=== PATIENT | female | born 1950 | race Caucasian/White ===

== ENCOUNTER 2018-01-22 09:50 | Emergency (ER) | payer MEDICARE, SELFPAY ==
[2018-01-22 09:50] VITALS: BP 125/49; PULSE 87; RESP 18; TEMP 36.6; O2SAT 93; BMI 21.9
--- NOTE | 2018-01-22 10:07 | RAD_ITS ---
STUDY: X-RAY CHEST REASON FOR EXAM: Female, 67 years old. Cough. TECHNIQUE: PA and lateral views of the chest. COMPARISON: None. FINDINGS: Right lower lung increased densities. There is no demonstrated pleural abnormality. Normal size heart. Normal mediastinum and xavier. Normal visualized pulmonary arteries. Normal visualized aortic arch and descending thoracic aorta. There is a dextroscoliosis of the thoracic spine. Normal visualized ribs, clavicles, and shoulders. There is no demonstrated abnormality of the visualized soft tissue structures of the upper abdomen. RAD/Chest PA and Lateral IMPRESSION: Right lower lung infiltrate. Electronically Signed: Gareth Patel MD at 10:29 EDT , Service support ,
--- NOTE | 2018-01-22 10:09 | ED.VISSUMM ---
- ER Visit Summary Date of Service: 01/22/18 Chief Complaint: Cough History of Present Illness: The patient is a 67 F who states that she flew to [place] about 1 week ago. She did so because they are 8 month old granddaughter has pneumonia was in the hospital. She was caring for the child after discharge. Patient states that on Thursday she began to have a slight sore throat and drainage. Thursday and she developed nasal congestion ear pressure cough, cough with deep inspiration and a headache. She states she has a poor appetite. Subjective fever this morning but she took antipyretics. She has a history of M?ni?re's disease and overactive bladder. She is patient to start spine clinic. She is a non-smoker. Physical Examination: Afebrile vital signs are stable Gen: Well-nourished well-developed Head: Normocephalic atraumatic Eyes: Perrl EOMI ENT: The left tympanic membrane is retracted. There is turbinate edema and clear rhinorrhea. No significant sinus tenderness. Evidence of postnasal drip. Neck: Supple no lymphadenopathy no JVD nontender CVS: Regular rate rhythm no murmurs normal S1-S2 Respiratory: No distress patient has right lower rhonchi that improves with coughing. She is unable to take a deep breath due to coughing. Abdomen: Soft nontender nondistended normal bowel sounds no masses Back: Nontender Extremity: Nontender no edema Skin: Normal color no rash Neuro: alert orientated ?3 CN II-XII intact normal strength sensation reflexes gait cerebellar Psych: Normal affect normal mood Test Results: Chest x-ray obtained. This was consistent with a right lower lobe infiltrate. Emergency Department Course and Treatment: Equal exam and chest x-ray are consistent with right lower lobe infiltrate. Patient will be started on Levaquin. We will do inhaler treatment/education. Patient was given return instructions. She was instructed to rest, hydrate, and provide fever control. She was encouraged to return if any concerns. Impression: 1. Pneumonia This note was generated with [employer] dictation software. It may contain incorrect words, spelling, and punctuation that were not noted in review of the chart prior to signing ED Disposition - Plan for ED Patient: Disposition: Home or Assisted Living Chief Complaint: General Illness Instructions: ED Pneumonia Adult Prescriptions: Levofloxacin [Levaquin] 750 mg PO DAILY #5 tab Referrals: Joyce Abdalla [NON-STAFF] - (as scheduled ) Additional Instructions: Inhaler uses 2 puffs every 3-4 hours and as needed for shortness of breath/cough. Please hydrate and rest Fever control with Tylenol. Return if any concerns or are worsening.
--- NOTE | 2018-01-22 10:12 | ED.DCSUM_ITS ---
- ER Visit Summary Date of Service: 01/22/18 Chief Complaint: Cough History of Present Illness: The patient is a 67 F who states that she flew to [place] about 1 week ago. She did so because they are 8 month old granddaughter has pneumonia was in the hospital. She was caring for the child after discharge. Patient states that on Thursday she began to have a slight sore throat and drainage. Thursday and she developed nasal congestion ear pressure cough, cough with deep inspiration and a headache. She states she has a poor appetite. Subjective fever this morning but she took antipyretics. She has a history of M?ni?re's disease and overactive bladder. She is patient to start spine clinic. She is a non-smoker. Physical Examination: Afebrile vital signs are stable Gen: Well-nourished well-developed Head: Normocephalic atraumatic Eyes: Perrl EOMI ENT: The left tympanic membrane is retracted. There is turbinate edema and clear rhinorrhea. No significant sinus tenderness. Evidence of postnasal drip. Neck: Supple no lymphadenopathy no JVD nontender CVS: Regular rate rhythm no murmurs normal S1-S2 Respiratory: No distress patient has right lower rhonchi that improves with coughing. She is unable to take a deep breath due to coughing. Abdomen: Soft nontender nondistended normal bowel sounds no masses Back: Nontender Extremity: Nontender no edema Skin: Normal color no rash Neuro: alert orientated ?3 CN II-XII intact normal strength sensation reflexes gait cerebellar Psych: Normal affect normal mood Test Results: Chest x-ray obtained. This was consistent with a right lower lobe infiltrate. Emergency Department Course and Treatment: Equal exam and chest x-ray are consistent with right lower lobe infiltrate. Patient will be started on Levaquin. We will do inhaler treatment/education. Patient was given return instructions. She was instructed to rest, hydrate, and provide fever control. She was encouraged to return if any concerns. Impression: 1. Pneumonia This note was generated with [employer] dictation software. It may contain incorrect words, spelling, and punctuation that were not noted in review of the chart prior to signing ED Disposition - Plan for ED Patient: Disposition: Home or Assisted Living Chief Complaint: General Illness Instructions: ED Pneumonia Adult Prescriptions: Levofloxacin [Levaquin] 750 mg PO DAILY #5 tab Referrals: Joyce Abdalla [NON-STAFF] - (as scheduled ) Additional Instructions: Inhaler uses 2 puffs every 3-4 hours and as needed for shortness of breath/ cough. Please hydrate and rest Fever control with Tylenol. Return if any concerns or are worsening.
[2018-01-22 11:06] VITALS: BP 106/55; PULSE 74; RESP 18; O2SAT 93
== END 2018-01-22 11:06 | disposition home or self-care (01) ==
PROVIDERS: Emergency Provider Emergency Medicine
DX: J18.9 Pneumonia, unspecified organism (principal); H81.09 Meniere's disease, unspecified ear
CPT/HCPCS: 71046; 94640; 99282

== ENCOUNTER → 2018-02-03 14:00 | Outpatient (CLI) | payer MEDICARE, SELFPAY ==
--- NOTE | 2018-02-03 14:04 | RAD_ITS ---
STUDY: X-RAY CHEST REASON FOR EXAM: Female, 67 years old. Pneumonia TECHNIQUE: Frontal and lateral views of the chest COMPARISON: 01/22/2018 FINDINGS: Again noted is opacity in the right lower lobe which is decreased when compared with the prior exam. The lungs are otherwise clear. There are no pleural effusions. There is no pneumothorax. The heart is normal in size. The visualized osseous structures are within normal limits. RAD/Chest PA and Lateral IMPRESSION: Decreased opacity when compared with the prior exam. Continued follow-up to resolution is recommended. Electronically Signed: Maykel James, at 23:19 EDT Tel , Service support ,
--- NOTE | 2018-02-03 14:14 | EKG12_ITS ---
Test Reason : IRRG HB Blood Pressure : / mmHG Vent. Rate : 060 BPM Atrial Rate : 060 BPM P-R Int : 144 ms QRS Dur : 082 ms QT Int : 438 ms P-R-T Axes : 064 025 004 degrees QTc Int : 438 ms Normal sinus rhythm Possible Left atrial enlargement Borderline ECG Confirmed by SHAUNA KAHN, JENNIFER ([id number]), photography editor LIZ SORENSEN ([id number]) on 02/05/2018 2:07:35 PM Referred By: [facility] Confirmed By:JENNIFER VILLATORO MD
== END ==
DX: J18.9 Pneumonia, unspecified organism (principal); I49.9 Cardiac arrhythmia, unspecified
CPT/HCPCS: 71046; 93005

== ENCOUNTER → 2018-04-26 09:41 | Outpatient (CLI) | payer MEDICARE, SELFPAY ==
--- NOTE | 2018-04-26 09:46 | ECHOD_ITS ---
Reason For Study: ABN EKG Procedure This was a 2D Doppler, Color Flow transthoracic echocardiogram. The exam was of fair technical quality due to diminished acoustic windows. Exam performed in department. Left Ventricle Normal LV size. Apical false tendon noted. Left ventricular systolic function is normal. The estimated ejection fraction is 65 %. Diastolic function: considered indeterminate. No regional wall motion abnormalities noted. Right Ventricle Normal RV size. Normal systolic function. Atria Normal left atrium. Normal right atrium. Aneurysmal atrial septum. No doppler evidence for ASD. Mitral Valve There is no mitral annular calcification. Normal mitral valve. Mild (1+) mitral valve insufficiency. Tricuspid Valve Normal tricuspid valve. Moderate (2+) tricuspid valve insufficiency. Right ventricular systolic pressure estimated to be 24 mmHg. Aortic Valve Trisinus/trileaflet aortic valve. Mild diffuse aortic valve thickening. Trivial aortic valve insufficiency. Pulmonic Valve The pulmonic valve is not well visualized. Mild (1+) pulmonic valve insufficiency. Great Vessels Normal sized aortic root. Pericardium/Pleural No pericardial effusion. MMode/2D Measurements & Calculations LVIDd: 4.1 cm IVSd: 0.95 cm Ao root diam: 3.0 cm LVIDs: 2.4 cm LVPWd: 0.96 cm LA dimension: 3.3 cm RVDd: 3.4 cm FS: 42.2 % LAV(MOD-bp): 44.1 ml LA A4 area: 16.6 cm2 RA A4 area: 13.5 cm2 LAV(MOD-bp) Indexed: 27.4 ml/m2 LAV(MOD-sp2): 42.4 ml LAV(MOD-sp4): 43.9 ml Time Measurements MV dec time: 0.25 sec Doppler Measurements & Calculations MV E max jigar: 52.4 cm/sec Lat Peak E' Jigar: 6.3 cm/sec Med Peak E' Jigar: 7.7 cm/sec MV A max jigar: 60.2 cm/sec E/E' lat: 8.3 E/E' med: 6.8 MV E/A: 0.87 Ao V2 max: 120.7 cm/sec LV V1 max: 108.3 cm/sec PA V2 max: 79.0 cm/sec Ao max P.8 mmHg LV V1 max P.7 mmHg TR max jigar: 230.7 cm/sec TR max P.3 mmHg Interpretation Summary Left ventricular systolic function is normal. The estimated ejection fraction is 65 %. Apical false tendon noted. Aneurysmal atrial septum. Mild (1+) mitral valve insufficiency. Moderate (2+) tricuspid valve insufficiency. Mild diffuse aortic valve thickening. Trivial aortic valve insufficiency. Mild (1+) pulmonic valve insufficiency. Right ventricular systolic pressure estimated to be 24 mmHg. Diastolic function: considered indeterminate. Ordering Physician: DILIP NULL Referring Physician: DILIP NULL Performed By: Luz Cadet, RDCS, RVT
== END ==
DX: R94.31 Abnormal electrocardiogram [ECG] [EKG] (principal)
CPT/HCPCS: 93306

== ENCOUNTER → 2018-09-24 15:46 | Outpatient (CLI) | payer MEDICARE, SELFPAY ==
--- NOTE | 2018-09-24 15:50 | BI_ITS ---
MAMMOGRAPHY - BILATERAL SCREENING REASON FOR EXAM: Female, 68 years old. Routine annual screening examination. PERTINENT HISTORY: Aunt with breast cancer. TECHNIQUE: Digital bilateral breast junito (3D mammographic acquisition) in the CC and MLO projections. 2-D mediolateral oblique (MLO) and craniocaudad (CC) views of both breasts were obtained. CAD: Full Field Digital Mammography with Computer Added Detection was performed. COMPARISON: Comparison is made with prior abdomen examination dated July 21, 2016. FINDINGS: Breast Composition: There are scattered areas of fibroglandular density. There are no dominant masses or suspicious calcifications. No other significant abnormalities are identified. There has been no significant change since the prior study. BI/SCREENING MAMM (CAD), BILAT IMPRESSION: Stable bilateral screening mammogram. Yearly follow-up mammogram recommended. (A) ASSESSMENT CATEGORY: BIRADS Category 1: Negative. A letter regarding these results will be sent to the patient by the facility within 30 days. Approximately 10% of breast cancers are not detected by mammography. A normal mammogram should not delay biopsy of a clinically suspicious abnormality. [id number] Electronically Signed: Elieser Gonzalez MD at 15:24 EST Tel [phone], Service support ,
== END ==
DX: Z12.31 Encounter for screening mammogram for malignant neoplasm of breast (principal)
CPT/HCPCS: 77063; 77067

== ENCOUNTER 2021-01-08 13:00 | Outpatient (RCR) | payer MEDICARE, SELFPAY ==
--- NOTE | 2021-01-01 12:19 | HP.PTEVAL_ITS ---
Patient's Visit Information MARK WINSLOW is a 70 year old F referred to Physical Therapy by Dr. Lamont Tucker MD with a diagnosis of Vertigo. Date of Evaluation: 01/01/21 Physical Therapist: Rene Morgan, ROSANNET, OCS, CSCS - Visit Plan Frequency: 1x/Week Duration: 4-6 Weeks Plan: weekly x 4-6 for progression of home vestibular ex. start adaptation and habituation as needed. MSQ progression of adaptation next session as helpful. - Subjective Feelings of dizzyness and lightheadedness. Sometimes spinning but normally big lightheadedness. It has been happening intermittently for several years. Diagnosed with Mieniere's disease. Then told she did not have that. Sent to [facility]. Has has put her on some meds, gave MRI adn not sure what is causing it and sent for PT. Morning is the worst time after breakfast. Then late a t night before bed. Dizzyness prior to meds was 7/10 for 30 minutes or so. Sometimes happens while she is walking. Now more like 4/10. Sleep is not usually interrupted. Sometimes feels it as she goes into bed. Retired. Spends day housework and baking and sewing, harder time seeing when sewing adn needs to take it easy if dizzy but not bad. Basic ADLs are I. No falls recently. BAKER sometimes from dizzyness. Last time felt good was a couple years ago. - Objective Baance is good. reflexes 1/3 patella and achilles. ARM LE WNL and strength 4/5. cervical aROM WFL adn no pain. Sensation LE WNL to gross light touch. - B hallpike cesar. - roll test. No nystagmus but slight dizzy for 10 seconds wilth all movements. head nods worse than head shake to 5/10 from baseline 3/10 . Oculomotor: no nystagmus with gaze or head shake. - ocular tilt. - skew eye deviation. Pursuit and saccades are OK but symptomatic more so with saccades after 30 sec to 6/10 for 20 seconds. convergence OK. VOR symptmatic 4/10 after 30 seconds for 10 seconds. MSQ positions: 180 turn no. head shake slight. head nods slight. up from knee not tested. Walk and trasnfers are good. - Balance Scores Functional Gait Assessment Score: 30 % Disability: 0 CATSIB Score (Max score 120 seconds): 120 - Goals Goal 1:: Pt feel dizzyness is 75% better adn 1-2/10 at worst. Goal Time Frame: 4-6 Weeks Goal 2:: <8 on DHI Goal Time Frame: 4-6 Weeks Goal 3:: Pt I in management of condition Goal Time Frame: 4-6 Weeks - Rehabilitation Potential Physical Therapy Diagnosis: vertigo possible vestibular dysfunction Rehabilitation Potential: Questionable - Anticipated Interventions Patient/Client Instruction: Educate patient on: Condition, Plan of Care For the Purpose of:: To improve ability of physical actions for home /community/work/leisure Comment: adaptation adn habituiation vestibualr ex as helpful For the Purpose of:: To improve ability of physical actions for home/community/work/leisure Thank you for the opportunity to evaluate your patient. For Medicare and Medicare HMO plans, please review the plan of care and approve it. It will need to be FAXED BACK to us at [phone] for Medicare purposes. For Medicare only, by signing this I certify the plan of care. Please let me know if there are questions or concerns regarding this plan of care. Physician Signature: Date:
--- NOTE | 2021-02-28 17:10 | HP.PT.NRP ---
MARK WINSLOW was seen in my office for initial evaluation on 01/01/21. The following Plan of Care was established for this patient: Initial Frequency: 1x/Week Initial Duration: 4-6 Weeks Patient/Client Instruction: Educate patient on: Condition, Plan of Care For the Purpose of:: To improve ability of physical actions for home/community/work/leisure For the Purpose of:: To improve ability of physical actions for home/community/work/leisure This patient was last seen in our office 01/08/21. Pertinent comments regarding their Physical therapy will appear below: Pt seen two visits of POC for HEP progression. She did not continue with her POC after last scheduled visit. at this point, it has been over 6 weeks and I will discontinue due to nonattendance. At this point I will be discontinuing this patient from physical therapy. I would be happy to see this patient again in the future if found appropriate by the physician. Thank you! Rene Morgan, DPT, OCS, CSCS
== END 2021-01-08 19:00 | disposition home or self-care (01) ==
LOC: PT 13:00
PROVIDERS: PCP Family Medicine; Referring Provider Psychiatry & Neurology Sleep Medicine; Visit Provider Psychiatry & Neurology Sleep Medicine
DX: G44.89 Other headache syndrome (principal); R42 Dizziness and giddiness
CPT/HCPCS: 97110; 97162; 97530

== ENCOUNTER → 2022-01-25 | Outpatient (CLI) | payer MEDICARE, SELFPAY ==
--- NOTE | 2022-01-25 10:56 | US_ITS ---
STUDY: RENAL ULTRASOUND - COMPLETE REASON FOR EXAM: Female, 71 years old. UTI TECHNIQUE: Ultrasound evaluation of the kidneys was performed with real-time and static moore-scale imaging. COMPARISON: None. FINDINGS: RIGHT KIDNEY: Normal location of the right kidney, which is normal in size. The right kidney measures 10.5 cm. There is a normal cortex of the right kidney. The renal cortex measures 1.0 cm. There is no right renal mass or cyst. There are no right renal calculi. There is no right hydronephrosis. DISTAL RIGHT URETER: There is non-visualization of the distal right ureter. There is no demonstrated right ureterovesical junction calculus. There is a visualized right ureteral jet. LEFT KIDNEY: Normal location of the left kidney, which is normal in size. The left kidney measures 10.5 cm. There is a normal cortex of the left kidney. The renal cortex measures 1.0 cm. There is no left renal mass or cyst. There are no left renal calculi. There is no left hydronephrosis. DISTAL LEFT URETER: There is non-visualization of the distal left ureter. There is no demonstrated left ureterovesical junction calculus. There is a visualized left ureteral jet. BLADDER: The distended urinary bladder has a volume of 244 ml. The empty urinary bladder has a volume of 5 ml. There is a normal wall thickness of the distended urinary bladder. There is no demonstrated mass within the urinary bladder. There are no demonstrated bladder calculi. US/Kidney and Bladder IMPRESSION: Normal ultrasound of the kidneys and urinary bladder. Electronically Signed: Jose Bell MD at 12:35 EDT ,
== END | disposition home or self-care (01) ==
PROVIDERS: PCP Family Medicine; Referring Provider Urology; Visit Provider Urology
DX: N39.0 Urinary tract infection, site not specified (principal)
CPT/HCPCS: 76770

== ENCOUNTER → 2023-02-09 | Outpatient (CLI) | payer MEDICARE, SELFPAY ==
[2023-02-09 15:41] LABS: Absolute Lymphocyte Count 2.29 X10^3/uL (0.83-4.51); Absolute Neutrophil Count 5.1 X10^3/uL (2.0-7.7); Basophil# 0.06 X10^3/uL; Basophil% 0.8 % (0-1); Eosinophil# 0.11 X10^3/uL; Eosinophils% 1.4 % (0-5); Hematocrit 41.4 % (37-47); Lymphocyte # 2.29 X10^3/ul (0.83-4.51); Lymphocyte % 28.7 % (19-41); Mean Corp Hgb Conc 31.4 g/dL (32-36); Mean Corpuscular Volume 85.9 fL (81-99); Mean Platelet Vol. 11.4 fl (6.2-12.0); Monocyte# 0.45 X10^3/uL; Monocyte% 5.6 % (0-10); NRBC Flagged by Analyzer 0 % (0-5); Neutrophil # 5.05 X10^3/uL (2.7-7.7); Neutrophil % 63.1 % (47-70); Platelet Count 287 K/mm3 (150-450); RBC Distribution Width CV 14.3 % (11.6-14.6); RBC Distribution Width SD 45.1 fl (35.1-43.9); Red Blood Count 4.82 M/mm3 (4.2-5.4)
[2023-02-09 16:19] LABS: Vitamin D,25 Hydroxy 47.8 ng/mL
[2023-02-09 16:24] LABS: ALB/GLOB Ratio 1.1 RATIO (0.9-2.4); AST(SGOT) 18 U/L (15-37); Alanine Aminotransfer ALT/SGPT 17 U/L (13-56); Albumin, Serum 3.9 g/dL (3.2-5.0); Alkaline Phosphatase 77 U/L (45-117); Anion Gap 7 (5-15); BUN 15 mg/dL (7-18); BUN/Creat Ratio 23.1 RATIO (10-20); Calcium,Total 9.3 mg/dL (8.5-10.1); Chloride 104 mmol/L (98-107); Creatinine, Serum 0.65 mg/dL (0.55-1.02); EST Glomerular Filtration Rate 96 mL/min (>60); Est Glom Filt Rate - Afr Amer 116 mL/min (>60); Globulin 3.4 g/dL (2.2-4.2); Glucose 97 mg/dL (74-106); Potassium 4.1 mmol/L (3.5-5.1); Protein, Total 7.3 g/dL (6.4-8.2); Rheumatoid Factor < 10.0 IU/mL (<15); Sodium Level 140 mmol/L (136-145)
[2023-02-11 12:09] LABS: CCP IgG Antibodies 6 units (0-19)
[2023-02-11 13:08] LABS: ANTINUCLEAR ANTIBODIES DIRECT Negative (Negative)
== END | disposition home or self-care (01) ==
PROVIDERS: PCP Internal Medicine; Referring Provider Internal Medicine; Visit Provider Internal Medicine
DX: M85.80 Other specified disorders of bone density and structure, unspecified site (principal); M25.50 Pain in unspecified joint
CPT/HCPCS: 36415; 80053; 82306; 85025; 86038; 86200; 86225; 86235; 86431

== ENCOUNTER → 2023-03-05 | Outpatient (CLI) | payer MEDICARE, SELFPAY ==
--- NOTE | 2023-03-05 11:02 | BD_ITS ---
STUDY: DUAL ENERGY X-RAY ABSORPTIOMETRY / DXA REASON FOR EXAM: Female, 72 years old. Osteopenia TECHNIQUE: Bone Mineral Density (BMD) measurements of lumbar spine and bilateral hips were obtained. COMPARISON: None. FINDINGS: Lumbar Spine (L1-L4): g/cm2 (1.066) / T-score (0.1) / Z-score (2.3) Findings are suggestive of normal bone density with a low fracture risk. Left Femur Total: g/cm2 (0.821) / T-score (-1.0) / Z-score (0.6) Left Femoral Neck: g/cm2 (0.688) / T-score (-1.5) / Z-score (0.4) Right Femur Total: g/cm2 (0.816) / T-score (-1.0) / Z-score (0.6) Right Femoral Neck: g/cm2 (0.670) / T-score (-1.6) / Z-score (0.3) BD/Dexa Bone Density Study IMPRESSION: The patient is considered osteopenic as outlined below according to World Yehuda Organization (WHO) criteria with a moderate fracture risk. Reference Information: The T-score is the number of standard deviations above or below the standard which is normal for young adults at their peak bone mineral density. The World Health Organization (WHO) interprets the T-scores as follows: Above -1 Normal bone density Between -1 and -2.5 Osteopenia Equal to / or below -2.5 Osteoporosis As a practical clinical guideline, osteopenia may be graded as follows: Mild -1 through -1.5 Moderate -1.6 through -2.0 Severe -2.1 through -2.4 The Z-score is the number of standard deviations above or below age-matched controls. A Z-score of less than -1.5 would be considered abnormal. References: 1. NIH Osteoporosis and Related Bone Diseases www osteo.org 2. International Society for Clinical Densitometry www iscd.org 3. National Osteoporosis Foundation www nof.org Electronically Signed: Elieser Gonzalez MD at 10:30 EDT ,
== END | disposition home or self-care (01) ==
PROVIDERS: PCP Internal Medicine; Referring Provider Internal Medicine; Visit Provider Internal Medicine
DX: Z78.0 Asymptomatic menopausal state (principal)
CPT/HCPCS: 77080

== ENCOUNTER → 2023-10-01 | Outpatient (CLI) | payer MEDICARE, SELFPAY ==
--- OUTSIDE RECORDS SUMMARY | 2023-10-01 11:33 | XMS RPT_ITS | CCD ---
Author Name Unknown Address [address] [place] [address] Organization [facility] Care Team Providers Care Lithograph Operator Name Role Phone Leonarda Liriano MD Primary Care Provider LEONARDA LIRIANO Primary Care UnavailENMANUEL Huang Referring Unavailable Leonarda Liriano MD Primary Care Provider Leonarda Liriano MD Primary Care Provider LEONARDA LIRIANO Primary Care Unavailab DIVINA Sr Attending Unavailable LEONARDA LIRIANO Primary Care UnavailRAFY Paez JR Referring Unavailable RAFY TUCKER JR Attending Unavailable MELLISA GARCIA Referring Unavailable LEONARDA LIRIANO Primary Care UnavailKASEY Gray Attending Unavailable MELLISA GARCIA Referring Unavailable LEONARDA LIRIANO Primary Care UnavailMELLISA Cuellar Attending Unavailable LEONARDA LIRIANO Primary Care UnavailRAFY Paez JR Referring Unavailable Medications Current Medications Medication Drug Class(es) Dates Sig (Normalized) Sig (Original) diazePAM 5 mg oral tablet (4 sources) Benzodiazepine Start: 07-14-2022 End: 09-16-2022 diazePAM (VALIUM) 5 mg tablet Indications: Fear of flying Take one tablet 30 minute prior to flight 6 tablet 0 07/14/2022 09/16/2022 Active Completed/Discontinued Medications Medication Drug Class(es) Dates Sig (Normalized) Sig (Original) aspirin 81 mg delayed release oral tablet (20 sources) Platelet Aggregation Inhibitor, Nonsteroidal Anti-inflammatory Drug take 1 tablet by mouth once daily aspirin, enteric coated (ASPIRIN, ENTERIC COATED) 81 mg EC tablet Take 81 mg by mouth once daily. 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] Chronic Diabetes mellitus without complication (20 sources) Prediabetes; Translations: [Prediabetes] 04-12-2020 Episodic Genitourinary symptoms and ill-defined conditions (1 source) Urinary symptoms ; Translations: [Unspecified symptoms and signs involving the genitourinary system] Episodic Osteoarthritis (2 sources) Osteoarthritis of joint of right shoulder region; Translations: [Primary osteoarthritis, right shoulder] Chronic Other bone disease and musculoskeletal deformities (20 sources) Osteopenia; Translations: [Other specified disorders of bone density and structure, unspecified site] 11-08-2018 Episodic Other circulatory disease (3 sources) History of cerebellar stroke; Translations: [Personal history of transient ischemic attack (TIA), and cerebral infarction without residual deficits] Episodic Other circulatory disease (1 source) History of cerebrovascular accident; Translations: [Personal history of transient ischemic attack (TIA), and cerebral infarction without residual deficits] Episodic Other connective tissue disease (1 source) Impingement syndrome of right shoulder region; Translations: [Impingement syndrome of right shoulder] Episodic Other diseases of bladder and urethra (20 sources) Overactive bladder; Translations: [Overactive bladder] 11-08-2018 Chronic Other screening for suspected conditions (not mental disorders or infectious disease) (4 sources) Patient encounter status; Translations: [Encounter for screening mammogram for malignant neoplasm of breast] Episodic Other skin disorders (2 sources) Mass of skin of left lower limb; Translations: [Localized swelling, mass and lump, left lower limb] Episodic Other skin disorders (1 source) Localized swelling, mass and lump, left lower limb; Translations: [Skin lump of leg, left] Onset: 06-26-2022 Episodic Spondylosis; intervertebral disc disorders; other back problems (6 sources) Neck pain; Translations: [Cervicalgia] Episodic Urinary tract infections (1 source) Recurrent urinary tract infection; Translations: [Urinary tract infection, site not specified] Episodic Viral infection (2 sources) Disease caused by 2019-nCoV; Translations: [COVID-19] Episodic Past or Other Problems Problem Classification Problem Date Documented Da te Episodic/Chronic Conditions associated with dizziness or vertigo (9 sources) Dizziness and giddiness; Translations: [Dizziness and giddiness] Onset: 01-16-2023 Episodic Headache; including migraine (7 sources) Chronic mixed headache syndrome; Translations: [Other headache syndrome] Onset: 10-06-2022 Episodic Other circulatory disease (1 source) Personal history of transient ischemic attack (TIA), and cerebral infarction without residual deficits; Translations: [History of cerebellar stroke] Onset: 10-06-2022 Episodic Results Test Name Value Interpretation Reference Range Facil ity Vital Signs Date Time Vital Sign Value Performing Clinician Faci lity 08-21-2023 13:59-0500 Body weight 63.32 kg Rafy Tucker Jr., MD Work Phone: [facility] 08-21-2023 13:59-0500 Diastolic blood pressure 72 mm[Hg] Rafy Tucker Jr., MD Work Phone: [facility] 08-21-2023 13:59-0500 Heart rate 78 /min Rafy Tucker Jr., MD Work Phone: [facility] 08-21-2023 13:59-0500 Respiratory rate 16 /min Rafy Tucker Jr., MD Work Phone: [facility] 08-21-2023 13:59-0500 SaO2% (BldA) [Mass fraction] 97 % Rafy Tucker Jr., MD Work Phone: [facility] 08-21-2023 13:59-0500 Systolic blood pressure 126 mm[Hg] Rafy Tucker Jr., MD Work Phone: [facility] 03-04-2023 16:02-0400 Body temperature 97.5 [degF] Kasey Hirsch PA-C Work Phone: [facility] 03-04-2023 16:02-0400 Body weight 65 kg Kasey Hirsch PA-C Work Phone: [facility] 03-04-2023 16:02-0400 Diastolic blood pressure 73 mm[Hg] Kasey CARPIO-Yobany Work Phone: [facility] 03-04-2023 16:02-0400 Heart rate 69 /min Kasey Hirsch PA-C Work Phone: [facility] 03-04-2023 16:02-0400 Respiratory rate 18 /min Kaseyelma Cruzer PA-C Work Phone: [facility] 03-04-2023 16:02-0400 SaO2% (BldA) [Mass fraction] 96 % Kaseyelma Cruzer PA-C Work Phone: [facility] 03-04-2023 16:02-0400 Systolic blood pressure 119 mm[Hg] Kasey er PA-C Work Phone: [facility] 09-23-2022 12:05-0500 Body temperature 98.01 [degF] Mellisa Graveshl PA-C Work Phone: [facility] 09-23-2022 12:05-0500 Body weight 64.95 kg Mellisa Graveshl PA-C Work Phone: [facility] 09-23-2022 12:05-0500 Diastolic blood pressure 84 mm[Hg] Mellisa Graveshl PA-C Work Phone: [facility] 09-23-2022 12:05-0500 Heart rate 68 /min Mellisa Hernandezfahl PA-C Work Phone: [facility] 09-23-2022 12:05-0500 Respiratory rate 18 /min Mellisa Hernandezfahl PA-C Work Phone: [facility] 09-23-2022 12:05-0500 SaO2% (BldA) [Mass fraction] 100 % Mellisa Graveshl PA-C Work Phone: [facility] 09-23-2022 12:05-0500 Systolic blood pressure 132 mm[Hg] Mellisa Graveshl PA-C Work Phone: [facility] 07-14-2022 12:37-0400 Body weight 64.23 kg Enmanuel Waldron APRN.HOME CARE ASSOCIATE Work Phone: [facility] 07-14-2022 12:37-0400 Diastolic blood pressure 78 mm[Hg] Enmanuel Waldron APRN.HOME CARE ASSOCIATE Work Phone: [facility] 07-14-2022 12:37-0400 Heart rate 75 /min Enmanuel Podlogar HELICOPTER ENGINEER.HOME CARE ASSOCIATE Work Phone: [facility] 07-14-2022 12:37-0400 Respiratory rate 18 /min Enmanuel Podlogar HELICOPTER ENGINEER.HOME CARE ASSOCIATE Work Phone: [facility] 07-14-2022 12:37-0400 SaO2% (BldA) [Mass fraction] 95 % Enmanuel Podlogar HELICOPTER ENGINEER.HOME CARE ASSOCIATE Work Phone: [facility] 07-14-2022 12:37-0400 Systolic blood pressure 130 mm[Hg] Enmanuel Podlogar HELICOPTER ENGINEER.HOME CARE ASSOCIATE Work Phone: [facility] 06-25-2022 09:45-0400 Body temperature 98.71 [degF] Enmanuel Podlogar HELICOPTER ENGINEER.HOME CARE ASSOCIATE Work Phone: [facility] 06-25-2022 09:45-0400 Body weight 63.59 kg Enmanuel Podlogar HELICOPTER ENGINEER.HOME CARE ASSOCIATE Work Phone: [facility] 06-25-2022 09:45-0400 Diastolic blood pressure 84 mm[Hg] Enmanuel Podlogar HELICOPTER ENGINEER.HOME CARE ASSOCIATE Work Phone: [facility] 06-25-2022 09:45-0400 Heart rate 68 /min Enmanuel Podlogar HELICOPTER ENGINEER.HOME CARE ASSOCIATE Work Phone: [facility] 06-25-2022 09:45-0400 Respiratory rate 16 /min Enmanuel Podlogar HELICOPTER ENGINEER.HOME CARE ASSOCIATE Work Phone: [facility] 06-25-2022 09:45-0400 SaO2% (BldA) [Mass fraction] 98 % Enmanuel Podlogar HELICOPTER ENGINEER.HOME CARE ASSOCIATE Work Phone: [facility] 06-25-2022 09:45-0400 Systolic blood pressure 138 mm[Hg] Enmanuel Podlogar HELICOPTER ENGINEER.HOME CARE ASSOCIATE Work Phone: [facility] 12-30-2021 13:02-0400 Body weight 64.14 kg Enmanuel Podlogar HELICOPTER ENGINEER.HOME CARE ASSOCIATE Work Phone: [facility] 12-30-2021 13:02-0400 Diastolic blood pressure 82 mm[Hg] Enmanuel Podlogar HELICOPTER ENGINEER.HOME CARE ASSOCIATE Work Phone: [facility] 12-30-2021 13:02-0400 Heart rate 62 /min Enmanuel Podlogar HELICOPTER ENGINEER.HOME CARE ASSOCIATE Work Phone: [facility] 12-30-2021 13:02-0400 Respiratory rate 18 /min Enmanuel Podlogar HELICOPTER ENGINEER.HOME CARE ASSOCIATE Work Phone: [facility] 12-30-2021 13:02-0400 SaO2% (BldA) [Mass fraction] 99 % Enmanuel Podlogar HELICOPTER ENGINEER.HOME CARE ASSOCIATE Work Phone: [facility] 12-30-2021 13:02-0400 Systolic blood pressure 130 mm[Hg] Enmanuel Podlogar HELICOPTER ENGINEER.HOME CARE ASSOCIATE Work Phone: [facility] Encounters Encounter Date Encounter Type Care Provider Facility Start: 08-22-2023 ambulatory Rafy horn MD Work Phone: Neurology Procedures Date Procedure Procedure Detail Performing Clinician Start: 10-06-2022 Lipid 1996 panel - S lissy or Plasma Leonarda Liriano MD Work Phone: Start: 05-28-2022 End: 05-28-2022 Screening mammography bi 2-view breast inc cad Enmanuel Podlogar HELICOPTER ENGINEER.HOME CARE ASSOCIATE Work Phone: Start: 02-19-2022 End: 02-19-2022 Arthrocentesis aspir&/inj major jerryt/chitra w/us Damien Carrillo DO Work Phone: Start: 12-30-2021 Urnls dip stick/tabl et rgnt auto w/o microscopy Enmanuel Podlogar HELICOPTER ENGINEER.HOME CARE ASSOCIATE Work Phone: Start: 11-06-2021 Colonoscopy Gareth deal MD Work Phone: Start: 06-17-2021 Mammography Gareth deal MD Work Phone: Start: 04-09-2021 Adult depression scr eening assessment Gareth Koehler MD Work Phone: Plan of Treatment Date Care Activity Detail Author Start: 11-08-2028 Urine microalbumin profile [facility] Start: 10-06-2027 Lipid 1996 panel - Serum or Plasma Lipid Screening [facility] Start: 10-06-2027 LIPID SCREEN LIPID SCREEN [facility] Start: 11-06-2026 Colonoscopy COLONOSCOPY [facility] Start: 11-06-2026 COLORECTAL CANCER SCREENING COLORECTAL CANCER SCREENING [facility] Start: 09-03-2026 LIPID SCREEN LIPID SCREEN [facility] Start: 10-06-2025 DIABETES SCREEN DIABETES SCREEN [facility] Start: 10-06-2025 Diabetes Screening Diabetes Screening [facility] Start: 09-03-2024 DIABETES SCREEN DIABETES SCREEN [facility] Start: 05-28-2023 Mammography [facility] Start: 05-22-2023 End: 07-22-2023 CBC panel - Blood by Automated count CBC Lab Routine Encounter for long-term (current) use of medications Expected: 05/22/2023, Expires: 07/22/2023 [facility] Work Phone: Immunizations Immunization Date Immunization Notes Care Provider [facility] 06-02-2022 influenza virus vacc ine, unspecified formulation Leonarda Liriano MD Work Phone: [facility] 12-18-2020 COVID-19 vaccine, fu ll dose (MODERNA) Gareth Koehler MD Work Phone: [facility] 11-20-2020 COVID-19 vaccine, fu ll dose (MODERNA) Gareth Koehler MD Work Phone: [facility] 08-22-2020 zoster vaccine recombinant Gareth Koehler MD Work Phone: [facility] 05-08-2020 influenza, injectabl e, quadrivalent, preservative free Gareth Koehler MD Work Phone: [facility] 05-08-2020 pneumococcal conjuga te vaccine, 13 valent Gareth Koehler MD Work Phone: [facility] 05-08-2020 zoster vaccine recombinant Gareth Koehler MD Work Phone: [facility] 06-24-2019 Seasonal trivalent influenza vaccine, adjuvanted, preservative free Gareth Koehler MD Work Phone: [facility] 11-08-2018 pneumococcal polysaccharide vaccine, 23 valent Gareth Koehler MD Work Phone: [facility] 06-15-2018 influenza, high dose seasonal, preservative-free Gareth Koehler MD Work Phone: [facility] 06-10-2017 influenza, injectabl e, quadrivalent, preservative free Gareth Koehler MD Work Phone: [facility] 05-13-2017 tetanus toxoid, redu aditi diphtheria toxoid, and acellular pertussis vaccine, adsorbed Gareth Koehler MD Work Phone: [facility] 07-31-2016 pneumococcal conjuga te vaccine, 13 valent Gareth Koehler MD Work Phone: [facility] 07-02-2016 influenza, seasonal, injectable, preservative free Gareth Koehler MD Work Phone: [facility] 06-26-2015 influenza, injectabl e, quadrivalent, contains preservative Gareth Koehler MD Work Phone: [facility] 05-25-1997 hepatitis B vaccine, adult dosage Gareth Koehler MD Work Phone: [facility] 12-20-1996 hepatitis B vaccine, adult dosage Gareth Koehler MD Work Phone: [facility] 11-14-1996 hepatitis B vaccine, adult dosage Gareth Koehler MD Work Phone: [facility] Payers Date Payer Category Payer Medicare [employer] MEDICARE A ETNA MEDICARE PPO [id number] 2021-Present [phone] [address] [place] [address] PPO [id number] 2021 Medicare [employer] MEDICARE A ETNA MEDICARE PPO [id number] 2021-Present [phone] [address] [place] [address] [facility] [id number] 2021 Medicare [id number] Social History Date Type Detail Facility Start: 11-08-2018 End: 06-25-2022 Tobacco smoking status NHIS Never smoked tobacco [facility] Start: 11-08-2018 End: 06-25-2022 Tobacco use and exposure Smokeless tobacco non-user [facility] Start: 11-06-2021 End: 08-21-2023 Alcohol intake Current drinker of alcohol (finding) [facility] Start: 04-09-2021 End: 09-11-2022 History SDOH Alcohol Frequency 2 [facility] Start: 04-09-2021 End: 09-11-2022 History SDOH Alcohol Std Drinks 1 [facility] Start: 11-08-2018 History SDOH Alcohol Comment 1 drink every 2 weeks [facility] Start: 04-09-2021 End: 09-11-2022 History SDOH Social Connections Phone 5 [facility] Start: 04-09-2021 End: 09-11-2022 History SDOH Social Connections Get Together 3 [facility] Start: 04-09-2021 History SDOH Physica l Activity DPW 6 [facility] Start: 04-09-2021 Education 17 [facility] Start: 1950 Sex Assigned At Not on file [facility] Start: 05-18-2022 End: 06-26-2022 Exposure to SARS-CoV-2 (event) Not sure [facility] Start: 09-11-2022 History SDOH Social Connections Phone 4 [facility] Start: 09-11-2022 History SDOH Social Connections Meetings 98 [facility] Start: 09-11-2022 End: 03-04-2023 History of Social function [facility] Start: 09-11-2022 End: 03-04-2023 Social connection and isolation panel [facility] Do you belong to any clubs or organizations such as caodaism groups, unions, fraternal or athletic groups, or school groups? No [facility] How often do you att end meetings of the clubs or organizations you belong to? Patient refused [facility] Are you now , , , , never or living with a partner? [facility] How many standard dr inks containing alcohol do you have on a typical day? 1 or 2 [facility] How often do you hav e 6 or more drinks on 1 occasion? Never [facility] Do you feel stress - tense, restless, nervous, or anxious, or unable to sleep at night because your mind is troubled all the time - these days [OSQ] Only a little [facility] (I/We) worried wheth er (my/our) food would run out before (I/we) got money to buy more. Never true [facility] Start: 07-23-2020 Gender identity Identifies as female gender (finding) [facility] Start: 07-23-2020 Sexual orientation Heterosexual (marsha estes) [facility] Clinical Notes 09-04-2021 to 08-21-2023 Rafy Tucker Jr., MD - 08/21/2023 2:01 PM Ruthie Yeager LPN - 08/21/2023 1:55 PM ESTTelephone Encounter - Kasey Hirsch PA-C - 05/22/2023 9:02 AM EDTPatient Instructions Note Date & Type Note Facility 08-21-2023 Note HNO ID: [id number] Author: Rafy Tucker Jr., MD Service: ? Author Type: Physician Type: Progress Notes Filed: 08/21/2023 5:40 PM Note Text: 08/20/2023 PROMIS Global Health Physical Health Summary Physical health: Good Everyday physical activity, ability: Mostly Fatigue: Moderate Pain level: 5 General health: Very good Social activities/roles, ability: Very good Physical Health T-Score 42.3 (Good) Physical Health Percentile 22 [facility] Mental Health Summary Quality of life: Good Mental health (mood,thinking): Good Social satisfaction: Good Emotional problems (anxious,depressed): Rarely Mental Health T-Score 45.8 (Good) Mental Health Percentile 34 (Minimal Depression) CADEN-7 Score: (Minimal Anxiety) Neuro-Qol Cognitive Function Percentile PROMIS Physical Function Percentile PROMIS Pain Interference Percentile Percentiles provide an indication of how a patient's score ranks in relation to the [place] general population. > 31st percentile is within normal limits or better *< 31st percentile is at least ? SD worse than population, which may be clinically relevant < 16th percentile is at least 1 SD worse than population and warrants attention Sleep Apnea Probability There is no data to display for this encounter ESTABLISHED PATIENT VISIT CHIEF COMPLAINT: Follow Up HISTORY OF PRESENT ILLNESS: Mark Melchor is a 73 year old female, with a PMH significant for and per last office visit with Yemi CARPIO on 03/04/23: ASSESSMENT/PLAN: 1. Dizziness - ICD9: 780.4, ICD10: R42 (primary diagnosis) 2. Cervicalgia - ICD9: 723.1, ICD10: M54.2 Patient with significant improvement in her dizziness since increasing Lyrica to 75 mg at night. No side effect of medication. No new symptoms. 3. History of cerebellar stroke - ICD9: V12.54, ICD10: Z86.73 Laboratory results show LDL at 70, A1c improved but still in the prediabetic range. Blood pressure today was normal. Patient managing risk factors well, continuing aspirin therapy. Did have a question regarding meloxicam and aspirin therapy, states that she was prescribed Aloxi cam for arthritis, concern of its slight increase in blood thinning ability. Educated patient on and has been there slight increase in bleeding, as well as slight increase in bleeding with aspirin. Discussed risks versus benefits of using this medication. No new stroke symptoms, patient doing well. 4. Nonintractable episodic headache, unspecified headache type - ICD9: 784.0, ICD10: R51.9 Patient notes that her paresthesias of her head has become improved as well as decreased in occurrence. Attributes this to the increase in Lyrica 75 mg from 50. States that he would like to stay at this dosage, would not like to go up further due to fear of side effects. Patient not having any side effects from this increase at this time. Patient reports that since increase in Lyrica to 75mg daily (QHS), feels everything improved. Currently having dizziness a bit more often than the headaches - about 1-2x per week and lasts maybe 10 minutes at most. Chronic neck pain and feels Lyrica has not helpd (takes Mobic prn provided through Dr. Neal). No definite acute vascular events. However, occasional sensation of generalized weakness. And one episode of lightheadedness while exercising. Pt still on ASA and statin. Headaches currently occur about 1x per week. Last maybe an hour at most. REVIEW OF SYSTEMS GENERAL:No weight loss, malaise or fevers. HEENT:Negative for frequent or significant headaches, No changes in hearing or vision, no nose bleeds or other nasal problems NECK:Negative for lumps, goiter, pain and significant neck swelling RESPIRATORY: Negative for cough, wheezing or shortness of breath. CARDIOVASCULAR: Negative for chest pain, leg swelling or palpitations. GASTROINTESTINAL: Negative for abdominal discomfort, blood in stools or black stools or change in bowel habits GENITOURINARY: No history of dysuria, frequency or incontinence MUSCULOSKELETAL: Negative for joint pain or swelling, back pain or muscle pain. NEUROLOGIC:See HPI. SKIN:Negative for lesions, rash, and itching. LAB/IMAGING: Those performed since patient's last visit have been reviewed. WBC (k/uL) Date Value 04/16/2020 6.73 RBC (m/uL) Date Value 04/16/2020 5.18 Hemoglobin (g/dL) Date Value 04/16/2020 14.3 Hematocrit (%) Date Value 04/16/2020 44.2 MCV (fL) Date Value 04/16/2020 85.3 MCH (pG) Date Value 04/16/2020 27.6 MCHC (g/dL) Date Value 04/16/2020 32.4 RDW-CV (%) Date Value 04/16/2020 14.1 Platelet Count (k/uL) Date Value 04/16/2020 273 MPV (fL) Date Value 04/16/2020 11.1 Glucose (mg/dL) Date Value 09/03/2021 100 (H) BUN (mg/dL) Date Value 09/03/2021 13 Creatinine (mg/dL) Date Value 09/03/2021 0.71 Sodium (mmol/L) Date Value 09/03/2021 140 Potassium (mmol/L) Date Value 09/03/2021 4.5 (more content not included)... [facility] 08-21-2023 Note HNO ID: [id number] Author: Ruthie Clemente LPN Service: ? Author Type: ? Type: Progress Notes Filed: 08/21/2023 5:40 PM Note Text: 08/20/2023 PROMIS Global Health Physical Health Summary Physical health: Good Everyday physical activity, ability: Mostly Fatigue: Moderate Pain level: 5 General health: Very good Social activities/roles, ability: Very good Physical Health T-Score 42.3 (Good) Physical Health Percentile 22 PROMIS [facility] Mental Health Summary Quality of life: Good Mental health (mood,thinking): Good Social satisfaction: Good Emotional problems (anxious,depressed): Rarely Mental Health T-Score 45.8 (Good) Mental Health Percentile 34 (Minimal Depression) CADEN-7 Score: (Minimal Anxiety) Neuro-Qol Cognitive Function Percentile PROMIS Physical Function Percentile PROMIS Pain Interference Percentile Percentiles provide an indication of how a patient's score ranks in relation to the [place] general population. > 31st percentile is within normal limits or better *< 31st percentile is at least ? SD worse than population, which may be clinically relevant < 16th percentile is at least 1 SD worse than population and warrants attention Sleep Apnea Probability There is no data to display for this encounter [facility] 08-21-2023 History of Present illness Narrative 08/20/2023 PROMIS Global Health Physical Health Summary Physical health: Good Everyday physical activity, ability: Mostly Fatigue: Moderate Pain level: 5 General health: Very good Social activities/roles, ability: Very good Physical Health T-Score 42.3 (Good) Physical Health Percentile 22 PROMIS Global Health Mental Health Summary Quality of life: Good Mental health (mood,thinking): Good Social satisfaction: Good Emotional problems (anxious,depressed): Rarely Mental Health T-Score 45.8 (Good) Mental Health Percentile 34 (Minimal Depression) CADEN-7 Score: (Minimal Anxiety) Neuro-Qol Cognitive Function Percentile PROMIS Physical Function Percentile PROMIS Pain Interference Percentile Percentiles provide an indication of how a patient's score ranks in relation to the [place] general population. > 31st percentile is within normal limits or better *< 31st percentile is at least SD worse than population, which may be clinically relevant < 16th percentile is at least 1 SD worse than population and warrants attention Sleep Apnea Probability There is no data to display for this encounter ESTABLISHED PATIENT VISIT CHIEF COMPLAINT: Follow Up HISTORY OF PRESENT ILLNESS: Mark Melchor is a 73 year old female, with a PMH significant for and per last office visit with Yemi CARPIO on 03/04/23: ASSESSMENT/PLAN: 1. Dizziness - ICD9: 780.4, ICD10: R42 (primary diagnosis) 2. Cervicalgia - ICD9: 723.1, ICD10: M54.2 Patient with significant improvement in her dizziness since increasing Lyrica to 75 mg at night. No side effect of medication. No new symptoms. 3. History of cerebellar stroke - ICD9: V12.54, ICD10: Z86.73 Laboratory results show LDL at 70, A1c improved but still in the prediabetic range. Blood pressure today was normal. Patient managing risk factors well, continuing aspirin therapy. Did have a question regarding meloxicam and aspirin therapy, states that she was prescribed Aloxi cam for arthritis, concern of its slight increase in blood thinning ability. Educated patient on and has been there slight increase in bleeding, as well as slight increase in bleeding with aspirin. Discussed risks versus benefits of using this medication. No new stroke symptoms, patient doing well. 4. Nonintractable episodic headache, unspecified headache type - ICD9: 784.0, ICD10: R51.9 Patient notes that her paresthesias of her head has become improved as well as decreased in occurrence. Attributes this to the increase in Lyrica 75 mg from 50. States that he would like to stay at this dosage, would not like to go up further due to fear of side effects. Patient not having any side effects from this increase at this time. Patient reports that since increase in Lyrica to 75mg daily (QHS), feels everything improved. Currently having dizziness a bit more often than the headaches - about 1-2x per week and lasts maybe 10 minutes at most. Chronic neck pain and feels Lyrica has not helpd (takes Mobic prn provided through Dr. Neal). No definite acute vascular events. However, occasional sensation of generalized weakness. And one episode of lightheadedness while exercising. Pt still on ASA and statin. Headaches currently occur about 1x per week. Last maybe an hour at most. REVIEW OF SYSTEMS GENERAL:No weight loss, malaise or fevers. HEENT:Negative for frequent or significant headaches, No changes in hearing or vision, no nose bleeds or other nasal problems NECK:Negative for lumps, goiter, pain and significant neck swelling RESPIRATORY: Negative for cough, wheezing or shortness of breath. CARDIOVASCULAR: Negative for chest pain, leg swelling or palpitations. GASTROINTESTINAL: Negative for abdominal discomfort, blood in stools or black stools or change in bowel habits GENITOURINARY: No history of dysuria, frequency or incontinence MUSCULOSKELETAL: Negative for joint pain or swelling, back pain or muscle pain. NEUROLOGIC:See HPI. SKIN:Negative for lesions, rash, and itching. LAB/IMAGING: Those performed since patient's last visit have been reviewed. WBC (k/uL) Date Value 04/16/2020 6.73 RBC (m/uL) Date Value 04/16/2020 5.18 Hemoglobin (g/dL) Date Value 04/16/2020 14.3 Hematocrit (%) Date Value 04/16/2020 44.2 MCV (fL) Date Value 04/16/2020 85.3 MCH (pG) Date Value 04/16/2020 27.6 MCHC (g/dL) Date Value 04/16/2020 32.4 RDW-CV (%) Date Value 04/16/2020 14.1 Platelet Count (k/uL) Date Value 04/16/2020 273 MPV (fL) Date Value 04/16/2020 11.1 Glucose (mg/dL) Date Value 09/03/2021 100 (H) BUN (mg/dL) Date Value 09/03/2021 13 Creatinine (mg/dL) Date Value 09/03/2021 0.71 Sodium (mmol/L) Date Value 09/03/2021 140 Potassium (mmol/L) Date Value 09/03/2021 4.5 Chloride (mmol/L) Date Value 09/03/2021 102 CO2 (mmol/L) Date Value 09/03/2021 27 Protein, Total (g/dL) Date Value 09/03/2021 6.9 Albumin (g/dL) Date Value 09/03/2021 4.3 Calcium (mg/dL) Date Value 09/03/2021 9.7 Alkaline Phosphatase (U/L) Date Value 09/03/2021 87 Bilirubin, Total (mg/dL) Date Value 09/03/2021 0.4 AST (U/L) Date Value 09/03/2021 21 ALT (U/L) Date Value 09/03/2021 14 Hep C Antibody IA (no units) Date Value 04/16/2020 Negative MEDICATIONS: pregabalin (LYRICA) 75 mg capsule Take 1 capsule by mouth once daily for 90 days. meloxicam (MOBIC) 15 mg tablet Take 7.5 mg by mouth once daily. d-mannose 500 mg cap Take by mouth. fesoterodine (TOVIAZ) 4 mg Tb24 extended release tablet Take 4 mg by mouth once daily. L.acid/L.casei/B.bif/B.rosalba/FOS (PROBIOTIC BLEND ORAL) Take by mouth. Once daily, from the urologist aspirin, enteric coated (ASPIRIN, ENTERIC COATED) 81 mg EC tablet Take 81 mg by mouth once daily. calcium carbonate/vitamin D3 (CALCIUM 600 + D ORAL) Take 1 tablet by mouth twice daily. rosuvastatin (CRESTOR) 5 mg tablet Take 1 tablet by mouth daily at bedtime. HISTORIES PAST MEDICAL HISTORY Diagnosis Date Arthritis Osteopenia Overactive bladder Prediabetes Primary osteoarthritis of right shoulder Rotator cuff arthropathy, right Stroke (HCC) had TIA (unsure when) showed on an MRI Vertigo Dr. Tucker FAMILY HISTORY Problem Relation Age of Onset Colon Cancer Father 63 Hypertension Father Diabetes Father Osteoporosis Mother Diabetes Sister No Known Problems Brother Osteoporosis Maternal Grandmother Stroke Paternal Grandfather Breast Cancer Maternal Aunt No Known Problems Sister No Known Problems Brother other (Other) Son killed in [place] SOCIAL HISTORY Social History Tobacco Use Smoking status: Never Smokeless tobacco: Never Vaping Use Vaping Use: Never used Substance Use Topics Alcohol use: Yes Comment: 1 drink every 2 weeks Drug use: No PHYSICAL EXAMINATION Blood pressure 126/72, pulse 78, resp. rate 16, weight 63.3 kg (139 lb 9.6 oz), SpO2 97 %. GENERAL EXAM: General appearance: NAD, pleasant. HEENT: NC/AT, nasal congestion absent, no oral lesions, membranes moist. NECK: No masses, supple. Lungs: CTA bilaterally. CV: RRR nl S1, S2. No carotid bruits. Extr: No cyanosis, clubbing or edema. Skin: Cool to touch. NEUROLOGICAL EXAM: General: Awake, alert, oriented x3 (person,place,time), speech fluent, no dysarthria; comprehension, naming, repetition intact. CN: PERRL, fundi with no evidence of papilledema, EOMI and without nystagmus, VFF to confrontation, facial sensation and strength are normal and symmetric, hearing is intact to finger rub bilaterally, palate and tongue movements are intact and symmetric. SCM and trapezius strength normal. Motor: Normal tone, bulk and strength (5/5) bilaterally (throughout extremities x4). Coordination: FNF, PITER, HTS intact. No tremors. Sensation: Light touch, vibration intact throughout. No evidence of neglect. Gait: Narrow based and stable with normal stride and arm swing. Assessment and Plan: ASSESSMENT/PLAN: 1. Dizziness - ICD9: 780.4, ICD10: R42 (primary diagnosis) 2. Cervicalgia - ICD9: 723.1, ICD10: M54.2 3. History of cerebellar stroke - ICD9: V12.54, ICD10: Z86.73 4. Nonintractable episodic headache, unspecified headache type - ICD9: 784.0, ICD10: R51.9 Overall symptoms appear to have improved with addition and increase of Lyrica ot 75mg nightly. However symptoms not fully resolved. Note no new stroke or vascular symptoms and pt remains on ASA and statin with BP goal <140/90 and glucose goal <140. No new stroke preventative recs at this time. Regarding dizziness and headaches, discussed treatment options, and will attempt to increase Lyrica to 75mg BID. SE and ADRs d/w pt. If not tolerating, can reduce dose back to 75mg QHS. Pt agrees with and understanding of plan. Requesting most recent labs from PCP (not in Epic) to confirm dosing of Lyrica appropriate - note pt does not endorse history of renal disorder. Rafy Tucker MD PDMP website checked and validated. All prescriptions have been APPROPRIATELY filled. No suspicious activity was identified. 08/21/2023 by Rafy Tucker MD Medical Decision Making: Problems: Moderate: 2+ stable chronic illnesses Data: Unique test result(s) reviewed: 1 Risk: Moderate: Drug management Medical Decision Making Level: 4 - Moderate 08/20/2023 PROMIS Global Health Physical Health Summary Physical health: Good Everyday physical activity, ability: Mostly Fatigue: Moderate Pain level: 5 General health: Very good Social activities/roles, ability: Very good Physical Health T-Score 42.3 (Good) Physical Health Percentile 22 PROMIS Global Health Mental Health Summary Quality of life: Good Mental health (mood,thinking): Good Social satisfaction: Good Emotional problems (anxious,depressed): Rarely Mental Health T-Score 45.8 (Good) Mental Health Percentile 34 (Minimal Depression) CADEN-7 Score: (Minimal Anxiety) Neuro-Qol Cognitive Function Percentile PROMIS Physical Function Percentile PROMIS Pain Interference Percentile Percentiles provide an indication of how a patient's score ranks in relation to the [place] general population. > 31st percentile is within normal limits or better *< 31st percentile is at least SD worse than population, which may be clinically relevant < 16th percentile is at least 1 SD worse than population and warrants attention Sleep Apnea Probability There is no data to display for this encounter documented in this encounter [facility] 07-08-2023 Note Patient Outreach (IN [facility]) MARK MELCHOR ([id number]) 1950 F Date Time Provider Department 07/08/23 LEONARDA LIRIANO During your visit today, we recorded the following information about you: Allergies As of Date: 07/08/2023 (No Known Allergies) Date Reviewed: 04/24/2023 Reviewed by: Ceci Jacob APRN.HOME CARE ASSOCIATE - Fully Assessed Visit Diagnosis:Encounter for screening mammogram for breast cancer [Z12.31] Order(s):[facility] SCREENING [[id number]] Order #: [id number] FUTURE Prescriptions as of 07/13/2023 - pregabalin (LYRICA) 75 mg capsule Take 1 capsule by mouth once daily for 90 days. - meloxicam (MOBIC) 15 mg tablet Take 7.5 mg by mouth once daily. - d-mannose 500 mg cap Take by mouth. - rosuvastatin (CRESTOR) 5 mg tablet Take 1 tablet by mouth daily at bedtime. - fesoterodine (TOVIAZ) 4 mg Tb24 extended release tablet Take 4 mg by mouth once daily. - L.acid/L.casei/B.bif/B.rosalba/FOS (PROBIOTIC BLEND ORAL) Take by mouth. Once daily, from the urologist - aspirin, enteric coated (ASPIRIN, ENTERIC COATED) 81 mg EC tablet Take 81 mg by mouth once daily. - calcium carbonate/vitamin D3 (CALCIUM 600 + D ORAL) Take 1 tablet by mouth twice daily. Problem List As Of Date 07/08/2023 Noted Resolved Meniere disease [H81.09] 09/04/2021 Osteopenia [M85.80] Overactive bladder [N32.81] Prediabetes [R73.03] Encounter Status:Closed by JESSICA JOHNSONUSEKae on 07/13/23 [facility] 05-22-2023 Miscellaneous Notes Refill sent, will need basic blood work and these have been ordered. [facility] All prescriptions have been APPROPRIATELY filled. No suspicious activity was identified. 05/22/2023 by Kasey Hirsch PA-C EBONY 03/04/23 with MQ NOV 08/21/23 with WJN Refill 04/24/23 with qty: 30 and 0 refills THAO Zeng Assessment/Plan ASSESSMENT/PLAN: 1. Dizziness - ICD9: 780.4, ICD10: R42 (primary diagnosis) 2. Cervicalgia - ICD9: 723.1, ICD10: M54.2 Patient with significant improvement in her dizziness since increasing Lyrica to 75 mg at night. No side effect of medication. No new symptoms. 3. History of cerebellar stroke - ICD9: V12.54, ICD10: Z86.73 Laboratory results show LDL at 70, A1c improved but still in the prediabetic range. Blood pressure today was normal. Patient managing risk factors well, continuing aspirin therapy. Did have a question regarding meloxicam and aspirin therapy, states that she was prescribed Aloxi cam for arthritis, concern of its slight increase in blood thinning ability. Educated patient on and has been there slight increase in bleeding, as well as slight increase in bleeding with aspirin. Discussed risks versus benefits of using this medication. No new stroke symptoms, patient doing well. 4. Nonintractable episodic headache, unspecified headache type - ICD9: 784.0, ICD10: R51.9 Patient notes that her paresthesias of her head has become improved as well as decreased in occurrence. Attributes this to the increase in Lyrica 75 mg from 50. States that he would like to stay at this dosage, would not like to go up further due to fear of side effects. Patient not having any side effects from this increase at this time. Patient doing well, no new complaints, no signs or symptoms that would warrant additional work-up at this time. Patient agreeable to plan of care at this time, all questions were answered. Patient follow-up in 6 months sooner should she develop any new symptoms. Kasey Hirsch PA-C Patient has been identified by name and date of : Yes Requested Prescriptions Pending Prescriptions Disp Refills pregabalin (LYRICA) 75 mg capsule 30 capsule 0 Sig: Take 1 capsule by mouth once daily for 30 days. RX INSTRUCTIONS: Patient aware RX will be sent to pharmacy. No need to notify patient. Lyrica looks like it comes from neuro for patient? Scheduled to see Dr Tucker 08/21/23 EBONY Hirsch 03/04/23 Brii Blas LPN documented in this encounter [facility] 04-24-2023 Miscellaneous Notes PDMP website checked and validated. All prescriptions have been APPROPRIATELY filled. No suspicious activity was identified. April 24, 2023 Ceci Jacob APRN.HOME CARE ASSOCIATE [facility] 03/04/23 with MQ NOV 08/21/23 with WJN Refill 03/25/23 with qty: 30 and 0 refills Nuha George LPN EBONY Assessment/Plan ASSESSMENT/PLAN: 1. Dizziness - ICD9: 780.4, ICD10: R42 (primary diagnosis) 2. Cervicalgia - ICD9: 723.1, ICD10: M54.2 Patient with significant improvement in her dizziness since increasing Lyrica to 75 mg at night. No side effect of medication. No new symptoms. 3. History of cerebellar stroke - ICD9: V12.54, ICD10: Z86.73 Laboratory results show LDL at 70, A1c improved but still in the prediabetic range. Blood pressure today was normal. Patient managing risk factors well, continuing aspirin therapy. Did have a question regarding meloxicam and aspirin therapy, states that she was prescribed Aloxi cam for arthritis, concern of its slight increase in blood thinning ability. Educated patient on and has been there slight increase in bleeding, as well as slight increase in bleeding with aspirin. Discussed risks versus benefits of using this medication. No new stroke symptoms, patient doing well. 4. Nonintractable episodic headache, unspecified headache type - ICD9: 784.0, ICD10: R51.9 Patient notes that her paresthesias of her head has become improved as well as decreased in occurrence. Attributes this to the increase in Lyrica 75 mg from 50. States that he would like to stay at this dosage, would not like to go up further due to fear of side effects. Patient not having any side effects from this increase at this time. Patient doing well, no new complaints, no signs or symptoms that would warrant additional work-up at this time. Patient agreeable to plan of care at this time, all questions were answered. Patient follow-up in 6 months sooner should she develop any new symptoms. Kasey Hirsch PA-C documented in this encounter [facility] 03-18-2023 Note HNO ID: [id number] Author: Zulma Moran MA Service: ? Author Type: Harvest Manager Type: Progress Notes Filed: 03/18/2023 1:47 PM Note Text: POPULATION HEALTH NAVIGATION OUTREACH Action/FYI Returning patients call as patient left a detail message on my voicemail in regards to initial outreach [employer] Care Gaps 5.30.23 Discuss/Due for: Medicare Wellness Exam, Mammogram, Advance Directives Outcome: 1st attempt - Left Message Patient Identified by Name and : NO Outreach Outcome/Action Unable to reach patient: Left message Navigation Signature: Zulma Moran MA March 18, 2023 1:43 PM [facility] 03-13-2023 Note Patient Outreach (ARMANDO TNAV) MARK MELCHOR ([id number]) 1950 F Date Time Provider Department 03/13/23 ZULMA MORAN During your visit today, we recorded the following information about you: Zulma Moran MA 03/13/2023 2:57 PM Signed POPULATION HEALTH NAVIGATION OUTREACH Action/FYI [employer] Care Gaps 02.17.23 Discuss/Due for: Medicare Wellness Exam, Mammogram, Advance Directives Outcome: 1st attempt - Left Message 2nd attempt - MyChart message sent Patient Identified by Name and : NO Outreach Outcome/Action Unable to reach patient: Left message MyChart message sent Advance Directives sent Did you use a PCP flex slot to schedule this appointment? N/A Reason for Outreach Care Gap or Scheduling/Wellness visits Payer: Payor: [employer] MEDICARE / Plan: [employer] MED[employer]ARE PPO / Product Type: PPO / Care Gap Reviewed:: Annual Wellness visit Breast Cancer screening Reminder: Reminder note to check Health Maintenance for items below Health Maintenance items due: ADVANCE DIRECTIVE DISCUSSION Never done MAMMOGRAM due on 05/28/2023 Navigation Signature: Zulma Moran MA March 13, 2023 8:50 AM Zulma Moran MA 03/18/2023 1:47 PM Signed POPULATION HEALTH NAVIGATION OUTREACH Action/FYI Returning patients call as patient left a detail message on my voicemail in regards to initial outreach [employer] Care Gaps 02.17.23 Discuss/Due for: Medicare Wellness Exam, Mammogram, Advance Directives Outcome: 1st attempt - Left Message Patient Identified by Name and : NO Outreach Outcome/Action Unable to reach patient: Left message Navigation Signature: Zulma Moran MA March 18, 2023 1:43 PM Allergies As of Date: 03/13/2023 (No Known Allergies) Date Reviewed: 03/04/2023 Reviewed by: Kasey Hirsch PA-C - Fully Assessed Reason for Visit: Population Health Navigation Outreach [3910] Cmt: [employer] Care Gaps 02.17.23 Prescriptions as of 03/18/2023 - meloxicam (MOBIC) 15 mg tablet Take 7.5 mg by mouth once daily. - d-mannose 500 mg cap Take by mouth. - pregabalin (LYRICA) 50 mg capsule Take 50 mg by mouth twice daily. - rosuvastatin (CRESTOR) 5 mg tablet Take 1 tablet by mouth daily at bedtime. - fesoterodine (TOVIAZ) 4 mg Tb24 extended release tablet Take 4 mg by mouth once daily. - L.acid/L.casei/B.bif/B.rosalba/FOS (PROBIOTIC BLEND ORAL) Take by mouth. Once daily, from the urologist - aspirin, enteric coated (ASPIRIN, ENTERIC COATED) 81 mg EC tablet Take 81 mg by mouth once daily. - calcium carbonate/vitamin D3 (CALCIUM 600 + D ORAL) Take 1 tablet by mouth twice daily. Problem List As Of Date 03/13/2023 Noted Resolved Meniere disease [H81.09] 09/04/2021 Osteopenia [M85.80] Overactive bladder [N32.81] Prediabetes [R73.03] Encounter Status:Closed by ZULMA MORAN on 03/13/23 [facility] 03-13-2023 Note HNO ID: [id number] Author: Zulma Moran MA Service: ? Author Type: Harvest Manager Type: Progress Notes Filed: 03/13/2023 2:57 PM Note Text: POPULATION HEALTH NAVIGATION OUTREACH Action/FYI [employer] Care Gaps 02.17.23 Discuss/Due for: Medicare Wellness Exam, Mammogram, Advance Directives Outcome: 1st attempt - Left Message 2nd attempt - MyChart message sent Patient Identified by Name and : NO Outreach Outcome/Action Unable to reach patient: Left message MyChart message sent Advance Directives sent Did you use a PCP flex slot to schedule this appointment? N/A Reason for Outreach Care Gap or Scheduling/Wellness visits Payer: Payor: T MEDICARE / Plan: [employer] MED[employer]ARE PPO / Product Type: PPO / Care Gap Reviewed:: Annual Wellness visit Breast Cancer screening Reminder: Reminder note to check Health Maintenance for items below Health Maintenance items due: ADVANCE DIRECTIVE DISCUSSION Never done MAMMOGRAM due on 05/28/2023 Navigation Signature: Zulma Moran MA March 13, 2023 8:50 AM [facility] 03-13-2023 History of Present illness Narrative POPULATION HEALTH NAVIGATION OUTREACH Action/ [facility] Care Gaps 02.17. Discuss/Due for: Medicare Wellness Exam, Mammogram, Advance Directives Outcome: 1st attempt - Left Message 2nd attempt - MyChart message sent Patient Identified by Name and : NO Outreach Outcome/Action Unable to reach patient: Left message MyChart message sent Advance Directives sent Did you use a PCP flex slot to schedule this appointment? N/A Reason for Outreach Care Gap or Scheduling/Wellness visits Payer: Payor: T MEDICARE / Plan: [employer] MED[employer]ARE PPO / Product Type: PPO / Care Gap Reviewed:: Annual Wellness visit Breast Cancer screening Reminder: Reminder note to check Health Maintenance for items below Health Maintenance items due: ADVANCE DIRECTIVE DISCUSSION Never done MAMMOGRAM due on 05/28/2023 Navigation Signature: Zulma Moran MA March 13, 2023 8:50 AM documented in this encounter [facility] 03-04-2023 Note HNO ID: [id number] Author: Kasey Hirsch PA-C Service: ? Author Type: Physician Perishable Fruit Inspector Type: Progress Notes Filed: 03/04/2023 4:33 PM Note Text: ESTABLISHED PATIENT VISIT Last visit: Mellisa Garcia 09/23/22 Assessment/Plan: Chart, labs,and relevant images reviewed. There were no encounter diagnoses. Pleasant 72-year-old female returns for follow-up for dizziness of unknown etiology, but thought to be possibly related to remote right cerebellar infarction, improved on low-dose of Lyrica. Patient was last seen by Dr. Tucker on 08/30/2021 for the same reason. Patient is currently on Lyrica 50 mg nightly. MRI of the brain on 08/07/2020 showed remote lacunar infarct in the right lateral cerebellum as well as low-lying cerebellar tonsils. Patient has tried and failed vestibular rehab in the past and has been to 2 separate ENTs. Overall, with the initiation of the Lyrica, patient's dizziness is now only episodic (previously constant) dysequilibrium. She also has a tingling sensation on the top of her head which lasts for seconds to an hour at the longest which has been ongoing for years. Patient denies change in semiology or any other signs or symptoms of stroke or increased intracranial pressure. Physical exam today did not show any cerebellar signs on the right or any new focal deficits that would warrant repeat MRI. Per patient, she had discussed the periodic numbness and tingling of her head with Dr. Tucker in the past and was thought to be related to headache disorder. We will increase Lyrica to 75 mg nightly to see if this improves frequency and severity of episodic numbness. Discussed potential side effects of Lyrica. However, patient has been trialed off the medication which worsened her dizziness symptoms and quality of life. She wishes to continue on this medication. 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 Did discuss the possibility of occipital nerve blocks for which patient would like to read up on it further. Offered referral to pain management as well which patient would prefer to hold off on. Regarding history of right cerebellar infarct, patient does not have any new or worsening focal deficits. No cerebellar signs on exam. Discussed secondary stroke prevention with goals outlined below. She is following with primary care, but has not had any recent blood work. Will obtain A1c and lipid panel today. While we are getting blood work, will obtain magnesium, TSH, and sed rate although very low suspicion for temporal arteritis. Patient to call should she have any new or worsening symptoms. Follow up in 6 months or sooner if new or worsening symptoms. PDMP website checked and validated. All prescriptions have been APPROPRIATELY filled. No suspicious activity was identified. 09/23/2022 by Mellisa Garcia PA-C PLAN - Increase Lyrica to 75 mg nightly - Labs: A1c, lipid panel - Dizziness labs: Mg, TSH, ESR for headache - Secondary stroke prevention outlined below - Consider occipital nerve block For reduction in the chances of further TIAs and strokes: - Target blood pressure is less than 130/80 mmHg - Target LDL ( Bad cholesterol ) less than 70 - Target HDL ( Good cholesterol ) greater than 50 - Triglyceride target within normal range - Hemoglobin A1c less than 7 CHIEF COMPLAINT: follow up HISTORY OF PRESENT ILLNESS: Mark Melchor is a 72 year old female, There were no vitals taken for this visit. with a PMH significant for cerebellar infarct, prediabetes, osteopenia. Patient presents for follow-up, had increasing Lyrica to 75 mg at night for paresthesias of the top of the head as well as some vague dizziness. Notes that her symptoms have significantly proved this further increase in her medication, no side effects. Notes that she gets the paresthesias to the top of the head maybe once every few weeks, lasts about 1/2-hour. Describes it as a numbness and tingling to the top of the head, comes on suddenly. No associated symptoms with this, resolved without intervention. Also describes a vague dizziness, notes that this significantly increased in severity as well as occurrence. Occurs about once or twice a week, lasts anywhere from 1 minute to 30 minutes. No other symptoms associated with this including paresthesias, nausea, vomiting, headache, tinnitus. Laboratory evaluation since last appointment showed decrease in her A1c to 5.7, LDL good at 70. Patient doing well, blood pressures 118/73 today. No recurrence of strokelike symptoms, no new symptoms last appointment. Does note that she was put on meloxicam to take as needed for her aspirin. States that her daughter is a innersole fitter and states that you cannot put dogs on aspirin and meloxicam at the same time and was wondering if this was okay for her. No bleeding, no falls. REVIEW OF (more content not included)... [facility] 03-04-2023 History of Present illness Narrative ESTABLISHED PATIENT VISIT Last visit: Mellisa Garcia 09/23/22 Assessment/Plan: Chart, labs,and relevant images reviewed. There were no encounter diagnoses. Pleasant 72-year-old female returns for follow-up for dizziness of unknown etiology, but thought to be possibly related to remote right cerebellar infarction, improved on low-dose of Lyrica. Patient was last seen by Dr. Tucker on 08/30/2021 for the same reason. Patient is currently on Lyrica 50 mg nightly. MRI of the brain on 08/07/2020 showed remote lacunar infarct in the right lateral cerebellum as well as low-lying cerebellar tonsils. Patient has tried and failed vestibular rehab in the past and has been to 2 separate ENTs. Overall, with the initiation of the Lyrica, patient's dizziness is now only episodic (previously constant) dysequilibrium. She also has a tingling sensation on the top of her head which lasts for seconds to an hour at the longest which has been ongoing for years. Patient denies change in semiology or any other signs or symptoms of stroke or increased intracranial pressure. Physical exam today did not show any cerebellar signs on the right or any new focal deficits that would warrant repeat MRI. Per patient, she had discussed the periodic numbness and tingling of her head with Dr. Tucker in the past and was thought to be related to headache disorder. We will increase Lyrica to 75 mg nightly to see if this improves frequency and severity of episodic numbness. Discussed potential side effects of Lyrica. However, patient has been trialed off the medication which worsened her dizziness symptoms and quality of life. She wishes to continue on this medication. 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 Did discuss the possibility of occipital nerve blocks for which patient would like to read up on it further. Offered referral to pain management as well which patient would prefer to hold off on. Regarding history of right cerebellar infarct, patient does not have any new or worsening focal deficits. No cerebellar signs on exam. Discussed secondary stroke prevention with goals outlined below. She is following with primary care, but has not had any recent blood work. Will obtain A1c and lipid panel today. While we are getting blood work, will obtain magnesium, TSH, and sed rate although very low suspicion for temporal arteritis. Patient to call should she have any new or worsening symptoms. Follow up in 6 months or sooner if new or worsening symptoms. PDMP website checked and validated. All prescriptions have been APPROPRIATELY filled. No suspicious activity was identified. 09/23/2022 by Mellisa Garcia PA-C PLAN - Increase Lyrica to 75 mg nightly - Labs: A1c, lipid panel - Dizziness labs: Mg, TSH, ESR for headache - Secondary stroke prevention outlined below - Consider occipital nerve block For reduction in the chances of further TIAs and strokes: - Target blood pressure is less than 130/80 mmHg - Target LDL ( Bad cholesterol ) less than 70 - Target HDL ( Good cholesterol ) greater than 50 - Triglyceride target within normal range - Hemoglobin A1c less than 7 CHIEF COMPLAINT: follow up HISTORY OF PRESENT ILLNESS: Mark Melchor is a 72 year old female, There were no vitals taken for this visit. with a PMH significant for cerebellar infarct, prediabetes, osteopenia. Patient presents for follow-up, had increasing Lyrica to 75 mg at night for paresthesias of the top of the head as well as some vague dizziness. Notes that her symptoms have significantly proved this further increase in her medication, no side effects. Notes that she gets the paresthesias to the top of the head maybe once every few weeks, lasts about 1/2-hour. Describes it as a numbness and tingling to the top of the head, comes on suddenly. No associated symptoms with this, resolved without intervention. Also describes a vague dizziness, notes that this significantly increased in severity as well as occurrence. Occurs about once or twice a week, lasts anywhere from 1 minute to 30 minutes. No other symptoms associated with this including paresthesias, nausea, vomiting, headache, tinnitus. Laboratory evaluation since last appointment showed decrease in her A1c to 5.7, LDL good at 70. Patient doing well, blood pressures 118/73 today. No recurrence of strokelike symptoms, no new symptoms last appointment. Does note that she was put on meloxicam to take as needed for her aspirin. States that her daughter is a innersole fitter and states that you cannot put dogs on aspirin and meloxicam at the same time and was wondering if this was okay for her. No bleeding, no falls. REVIEW OF SYSTEMS GENERAL:No weight loss, malaise or fevers. HEENT:Negative for frequent or significant headaches, No changes in hearing or vision, no nose bleeds or other nasal problems NECK:Negative for lumps, goiter, pain and significant neck swelling RESPIRATORY: Negative for cough, wheezing or shortness of breath. CARDIOVASCULAR: Negative for chest pain, leg swelling or palpitations. GASTROINTESTINAL: Negative for abdominal discomfort, blood in stools or black stools or change in bowel habits GENITOURINARY: No history of dysuria, frequency or incontinence MUSCULOSKELETAL: Negative for joint pain or swelling, back pain or muscle pain. NEUROLOGIC:Negative for focal numbness or weakness, headaches and dizziness or syncope, vision changes, speech/languag changes - EXCEPT that as per HPI above. SKIN:Negative for lesions, rash, and itching. PSYCHIATRIC: Negative for sleep disturbance, mood disorder and recent psychosocial stressors. HEMATOLOGIC/LYMPHATIC/IMMUNOLOGIC :Negative for prolonged bleeding, bruising easily or swollen nodes. ENDOCRINE: Negative for cold or heat intolerance, polyuria, polydipsia and goiter. The remainder of the ROS was reviewed and is negative. LAB/IMAGING: Those performed since patient's last visit have been reviewed. Labs as noted above MEDICATIONS: meloxicam (MOBIC) 15 mg tablet Take 7.5 mg by mouth once daily. d-mannose 500 mg cap Take by mouth. pregabalin (LYRICA) 50 mg capsule Take 50 mg by mouth twice daily. rosuvastatin (CRESTOR) 5 mg tablet Take 1 tablet by mouth daily at bedtime. fesoterodine (TOVIAZ) 4 mg Tb24 extended release tablet Take 4 mg by mouth once daily. L.acid/L.casei/B.bif/B.rosalba/FOS (PROBIOTIC BLEND ORAL) Take by mouth. Once daily, from the urologist aspirin, enteric coated (ASPIRIN, ENTERIC COATED) 81 mg EC tablet Take 81 mg by mouth once daily. calcium carbonate/vitamin D3 (CALCIUM 600 + D ORAL) Take 1 tablet by mouth twice daily. HISTORIES PAST MEDICAL HISTORY Diagnosis Date Arthritis Osteopenia Overactive bladder Prediabetes Primary osteoarthritis of right shoulder Rotator cuff arthropathy, right Stroke (HCC) had TIA (unsure when) showed on an MRI Vertigo Dr. Tucker FAMILY HISTORY Problem Relation Age of Onset Colon Cancer Father 63 Hypertension Father Diabetes Father Osteoporosis Mother Diabetes Sister No Known Problems Brother Osteoporosis Maternal Grandmother Stroke Paternal Grandfather Breast Cancer Maternal Aunt No Known Problems Sister No Known Problems Brother other (Other) Son killed in [place] SOCIAL HISTORY Social History Tobacco Use Smoking status: Never Smokeless tobacco: Never Vaping Use Vaping Use: Never used Substance Use Topics Alcohol use: Yes Comment: 1 drink every 2 weeks Drug use: No PHYSICAL EXAMINATION BP 119/73 Pulse 69 Temp 36.4 C (97.5 F) Resp 18 Wt 65 kg (143 lb 4.8 oz) SpO2 96% BMI 25.38 kg/m GENERAL EXAM: General appearance: NAD, pleasant. HEENT: NC/AT, nasal congestion absent, no oral lesions, membranes moist. NECK: No masses, supple. Lungs: Breathing comfortably Extr: Moves all extremities without difficulty Skin: Cool to touch. No rash. NEUROLOGICAL EXAM: General: Awake, alert, oriented x3 (person,place,time), speech fluent, no dysarthria; comprehension, naming, repetition intact. 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 CN: PERRL, EOMI and without nystagmus, VFF to confrontation, facial sensation and strength are normal and symmetric, hearing is intact to finger rub bilaterally, palate and tongue movements are intact and symmetric. SCM and trapezius strength normal. Motor: Normal tone, bulk and strength (5/5) bilaterally (throughout extremities x4). Reflexes: 2/4 and symmetric Coordination: FNF intact. Heel to owens intact. No tremors. Sensation: LT, No evidence of neglect. Gait: Narrow based and stable with normal stride and arm swing. Assessment and Plan: ASSESSMENT/PLAN: 1. Dizziness - ICD9: 780.4, ICD10: R42 (primary diagnosis) 2. Cervicalgia - ICD9: 723.1, ICD10: M54.2 Patient with significant improvement in her dizziness since increasing Lyrica to 75 mg at night. No side effect of medication. No new symptoms. 3. History of cerebellar stroke - ICD9: V12.54, ICD10: Z86.73 Laboratory results show LDL at 70, A1c improved but still in the prediabetic range. Blood pressure today was normal. Patient managing risk factors well, continuing aspirin therapy. Did have a question regarding meloxicam and aspirin therapy, states that she was prescribed Aloxi cam for arthritis, concern of its slight increase in blood thinning ability. Educated patient on and has been there slight increase in bleeding, as well as slight increase in bleeding with aspirin. Discussed risks versus benefits of using this medication. No new stroke symptoms, patient doing well. 4. Nonintractable episodic headache, unspecified headache type - ICD9: 784.0, ICD10: R51.9 Patient notes that her paresthesias of her head has become improved as well as decreased in occurrence. Attributes this to the increase in Lyrica 75 mg from 50. States that he would like to stay at this dosage, would not like to go up further due to fear of side effects. Patient not having any side effects from this increase at this time. Patient doing well, no new complaints, no signs or symptoms that would warrant additional work-up at this time. Patient agreeable to plan of care at this time, all questions were answered. Patient follow-up in 6 months sooner should she develop any new symptoms. Kasey Hirsch PA-C I spent a total of 20 minutes on the date of the service which included preparing to see the patient, [id number] patient care, completing clinical documentation, obtaining and/or reviewing separately obtained history, performing a medically appropriate examination, and counseling and educating the patient/family/caregiver. This document has been created with the use of voice recognition technology. It may contain inaccuracies: (e.g. misspellings, inaccurate syntax or word sense) that have escaped review. documented in this encounter [facility] 10-09-2022 Miscellaneous Notes Patient has been identified by name and date of : Yes Requested Prescriptions Pending Prescriptions Disp Refills rosuvastatin (CRESTOR) 5 mg tablet 90 tablet 1 Sig: Take 1 tablet by mouth daily at bedtime. RX INSTRUCTIONS: Patient aware RX will be sent to pharmacy. No need to notify patient. Silvia Vega MA Ebony: 08/2021 (routine) No appointment scheduled Last refill: 03/2022 documented in this encounter [facility] 09-23-2022 Note HNO ID: [id number] Author: Mellisa Garcia PA-C Service: ? Author Type: Physician Perishable Fruit Inspector Type: Progress Notes Filed: 09/23/2022 8:15 PM Note Text: [facility] Name: Mark Melchor Age: [age] year old Gender: female Primary Care Provider: Leonarda Liriano MD Chief Complaint:No chief complaint on file. Chart Review: HPI: Patient was last seen by Dr. Tucker on 08/30/2021 for vertigo possibly secondary to history of right cerebellar stroke, episodic headache, and cervicalgia. At last visit, patient had run out of Lyrica x 1 week and had not noticed a significant difference in dizziness so it was discontinued. Patient reports that after some time without the Lyrica, she realized that it was likely helping and wish to continue on it. She contacted our office and it was represcribed. Patient reports that her dizziness is overall improved. Is no longer constant, although she still has an intermittent mild sensation as though things are swimming around . She reports that she has tried vestibular rehab in the past but it was too expensive and she felt that it did not help. She also went to an ENT several years ago who thought patient had Meniere's disease. More recently, she went to another ENT that felt that it was a misdiagnosis. Patient reports that she does have associated tinnitus but denies ear fullness or hearing loss. Patient also reports a sensation as though she has occasional numbness at the top of her head. She states that it is not painful and more of a tingling. This sensation lasts for minutes to a half hour. Not longer than an hour. Not followed by headache. Patient denies any associated nausea, vomiting, photophobia, or phonophobia. She reports that this happens at a frequency of sometimes multiple times per week and other times she goes weeks without the sensation. She reports that this is not new. According to patient, she had discussed this with Dr. Tucker in the past and was thought to be headache syndrome. She denies history of migraine headaches. Patient denies change in semiology of the this symptom or any new symptoms. Overall, she wishes to continue on the Lyrica. She denies any overt side effects including fatigue. ACTIVE PROBLEM LIST Osteopenia Overactive Bladder Prediabetes PAST MEDICAL HISTORY Diagnosis Date Arthritis Osteopenia Overactive bladder Prediabetes Primary osteoarthritis of right shoulder Rotator cuff arthropathy, right Stroke (HCC) had TIA (unsure when) showed on an MRI Vertigo Dr. Tucker Medications: Reviewed Current Outpatient Medications on File Prior to Visit Medication Sig pregabalin (LYRICA) 50 mg capsule Take 1 capsule by mouth daily at bedtime for 90 days. rosuvastatin (CRESTOR) 5 mg tablet Take 1 tablet by mouth daily at bedtime. aspirin, enteric coated (ASPIRIN, ENTERIC COATED) 81 mg EC tablet Take 81 mg by mouth once daily. calcium carbonate/vitamin D3 (CALCIUM 600 + D ORAL) Take 1 tablet by mouth twice daily. No current facility-administered medications on file prior to visit. ALLERGIES No Known Allergies FAMILY HISTORY Problem Relation Age of Onset Colon Cancer Father 63 Hypertension Father Diabetes Father Osteoporosis Mother Diabetes Sister No Known Problems Brother Osteoporosis Maternal Grandmother Stroke Paternal Grandfather Breast Cancer Maternal Aunt No Known Problems Sister No Known Problems Brother other (Other) Son killed in [place] PAST SURGICAL HISTORY Procedure Laterality Date ABDOMINAL SURGERY HX DELIVERY ONLY , low transverse x2 COLONOSCOPY 2016-repeat in 5 years. COLONOSCOPY 11/06/2021 repeat in 5 years DILATION AND CURETTAGE DXAND/THER NONOBSTETRIC 1985 Dilation AND curettage PAST SURGICAL HISTORY OF aspirated breast cyst TUBAL LIGATION Social Hx: @Alcohol Use: Not At Risk Frequency of Alcohol Consumption: Not on file Average Number of Drinks: 1 or 2 Frequency of Binge Drinking: Never Tobacco Use: Low Risk Smoking Tobacco Use: Never Smokeless Tobacco Use: Never Passive Exposure: Not on file There were no vitals filed for this visit. Neurologic Exam Cognitive and Language: Alert and answered questions appropriately. Language was fluent. Cranial Nerves: Extraocular movements were full with no diplopia or nystagmus. Facial strength was symmetric. Motor: Can move all four extremities antigravity. Full ROM of neck Sensory: Preserved to light touch throughout Coordination: Normal finger to nose and heel to owens testing bilaterally. Normal gait. Negative romberg. No pain on palpation of temporal arteries bilaterally. Mild pain on palpation of right occiput. No pain on palpation of cervical perispinals or temporalis bilaterally. Labs: Lab Results Component Value Date WBC 6.73 04/16/2020 HCT 44.2 04/16/2020 MCV 85.3 04/16/2020 PLT 273 04/16/2020 Lab (more content not included)... [facility] 09-23-2022 Instructions Mellisa Garcia PA-C - 09/23/2022 12:16 PM EST 1) Lyrica increased to 75 mg nightly. Please let me know if this helps with head numbness. Please contact me if head numbness gets worse 2) Consider occipital nerve block. 3) Labs. Secondary stroke prevention goals listed below. For reduction in the chances of further TIAs and strokes: - Target blood pressure is less than 130/80 mmHg - Target LDL ( Bad cholesterol ) less than 70 - Target HDL ( Good cholesterol ) greater than 50 - Triglyceride target within normal range - Hemoglobin A1c less than 7 documented in this encounter [facility] 09-23-2022 History of Present illness Narrative Images from the original note were not included. [facility] Name: Mark Melchor Age: [age] year old Gender: female Primary Care Provider: Leonarda Liriano MD Chief Complaint:No chief complaint on file. Chart Review: HPI: Patient was last seen by Dr. Tucker on 08/30/2021 for vertigo possibly secondary to history of right cerebellar stroke, episodic headache, and cervicalgia. At last visit, patient had run out of Lyrica x 1 week and had not noticed a significant difference in dizziness so it was discontinued. Patient reports that after some time without the Lyrica, she realized that it was likely helping and wish to continue on it. She contacted our office and it was represcribed. Patient reports that her dizziness is overall improved. Is no longer constant, although she still has an intermittent mild sensation as though things are swimming around . She reports that she has tried vestibular rehab in the past but it was too expensive and she felt that it did not help. She also went to an ENT several years ago who thought patient had M ni re's disease. More recently, she went to another ENT that felt that it was a misdiagnosis. Patient reports that she does have associated tinnitus but denies ear fullness or hearing loss. Patient also reports a sensation as though she has occasional numbness at the top of her head. She states that it is not painful and more of a tingling. This sensation lasts for minutes to a half hour. Not longer than an hour. Not followed by headache. Patient denies any associated nausea, vomiting, photophobia, or phonophobia. She reports that this happens at a frequency of sometimes multiple times per week and other times she goes weeks without the sensation. She reports that this is not new. According to patient, she had discussed this with Dr. Tucker in the past and was thought to be headache syndrome. She denies history of migraine headaches. Patient denies change in semiology of the this symptom or any new symptoms. Overall, she wishes to continue on the Lyrica. She denies any overt side effects including fatigue. ACTIVE PROBLEM LIST Osteopenia Overactive Bladder Prediabetes PAST MEDICAL HISTORY Diagnosis Date Arthritis Osteopenia Overactive bladder Prediabetes Primary osteoarthritis of right shoulder Rotator cuff arthropathy, right Stroke (HCC) had TIA (unsure when) showed on an MRI Vertigo Dr. Tucker Medications: Reviewed Current Outpatient Medications on File Prior to Visit Medication Sig pregabalin (LYRICA) 50 mg capsule Take 1 capsule by mouth daily at bedtime for 90 days. rosuvastatin (CRESTOR) 5 mg tablet Take 1 tablet by mouth daily at bedtime. aspirin, enteric coated (ASPIRIN, ENTERIC COATED) 81 mg EC tablet Take 81 mg by mouth once daily. calcium carbonate/vitamin D3 (CALCIUM 600 + D ORAL) Take 1 tablet by mouth twice daily. No current facility-administered medications on file prior to visit. ALLERGIES No Known Allergies FAMILY HISTORY Problem Relation Age of Onset Colon Cancer Father 63 Hypertension Father Diabetes Father Osteoporosis Mother Diabetes Sister No Known Problems Brother Osteoporosis Maternal Grandmother Stroke Paternal Grandfather Breast Cancer Maternal Aunt No Known Problems Sister No Known Problems Brother other (Other) Son killed in [place] PAST SURGICAL HISTORY Procedure Laterality Date ABDOMINAL SURGERY HX DELIVERY ONLY , low transverse x2 COLONOSCOPY 2016-repeat in 5 years. COLONOSCOPY 11/06/2021 repeat in 5 years DILATION & CURETTAGE DX&/THER NONOBSTETRIC 1985 Dilation & curettage PAST SURGICAL HISTORY OF aspirated breast cyst TUBAL LIGATION Social Hx: @Alcohol Use: Not At Risk Frequency of Alcohol Consumption: Not on file Average Number of Drinks: 1 or 2 Frequency of Binge Drinking: Never Tobacco Use: Low Risk Smoking Tobacco Use: Never Smokeless Tobacco Use: Never Passive Exposure: Not on file There were no vitals filed for this visit. Neurologic Exam Cognitive and Language: Alert and answered questions appropriately. Language was fluent. Cranial Nerves: Extraocular movements were full with no diplopia or nystagmus. Facial strength was symmetric. Motor: Can move all four extremities antigravity. Full ROM of neck Sensory: Preserved to light touch throughout Coordination: Normal finger to nose and heel to owens testing bilaterally. Normal gait. Negative romberg. No pain on palpation of temporal arteries bilaterally. Mild pain on palpation of right occiput. No pain on palpation of cervical perispinals or temporalis bilaterally. Labs: Lab Results Component Value Date WBC 6.73 04/16/2020 HCT 44.2 04/16/2020 MCV 85.3 04/16/2020 PLT 273 04/16/2020 Lab Results Component Value Date HBA1C 5.9 04/15/2021 HBA1C 5.9 10/11/2020 HBA1C 5.8 04/16/2020 Total Cholesterol, Nonfasting Date Value Ref Range Status 09/03/2021 151 <200 mg/dL Final Comment: <200 mg/dL, Desirable 200-239 mg/dL, Borderline high >239 mg/dL, High HDL Cholesterol, Nonfasting Date Value Ref Range Status 09/03/2021 50 >39 mg/dL Final Comment: 40-59 mg/dL, Acceptable >59 mg/dL, High: Negative risk factor for coronary heart disease <40 mg/dL, Low: Positive risk factor for coronary heart disease LDL Cholesterol, Nonfasting Date Value Ref Range Status 09/03/2021 83 <100 mg/dL Final Comment: <100 mg/dL, Optimal 100-129 mg/dL, Near optimal/above optimal 130-159 mg/dL, Borderline high 160-189 mg/dL, High >189 mg/dL, Very high Secondary prevention optimal LDL Cholesterol levels are recommended to be < 70 mg/dL Triglycerides, Nonfasting Date Value Ref Range Status 09/03/2021 90 <150 mg/dL Final Comment: <150 mg/dL, Normal 150-199 mg/dL, Borderline high 200-499 mg/dL, High >499 mg/dL, Very high Radiology: Assessment/Plan: Chart, labs,and relevant images reviewed. There were no encounter diagnoses. Pleasant 72-year-old female returns for follow-up for dizziness of unknown etiology, but thought to be possibly related to remote right cerebellar infarction, improved on low-dose of Lyrica. Patient was last seen by Dr. Tucker on 08/30/2021 for the same reason. Patient is currently on Lyrica 50 mg nightly. MRI of the brain on 08/07/2020 showed remote lacunar infarct in the right lateral cerebellum as well as low-lying cerebellar tonsils. Patient has tried and failed vestibular rehab in the past and has been to 2 separate ENTs. Overall, with the initiation of the Lyrica, patient's dizziness is now only episodic (previously constant) dysequilibrium. She also has a tingling sensation on the top of her head which lasts for seconds to an hour at the longest which has been ongoing for years. Patient denies change in semiology or any other signs or symptoms of stroke or increased intracranial pressure. Physical exam today did not show any cerebellar signs on the right or any new focal deficits that would warrant repeat MRI. Per patient, she had discussed the periodic numbness and tingling of her head with Dr. Tucker in the past and was thought to be related to headache disorder. We will increase Lyrica to 75 mg nightly to see if this improves frequency and severity of episodic numbness. Discussed potential side effects of Lyrica. However, patient has been trialed off the medication which worsened her dizziness symptoms and quality of life. She wishes to continue on this medication. 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 Did discuss the possibility of occipital nerve blocks for which patient would like to read up on it further. Offered referral to pain management as well which patient would prefer to hold off on. Regarding history of right cerebellar infarct, patient does not have any new or worsening focal deficits. No cerebellar signs on exam. Discussed secondary stroke prevention with goals outlined below. She is following with primary care, but has not had any recent blood work. Will obtain A1c and lipid panel today. While we are getting blood work, will obtain magnesium, TSH, and sed rate although very low suspicion for temporal arteritis. Patient to call should she have any new or worsening symptoms. Follow up in 6 months or sooner if new or worsening symptoms. PDMP website checked and validated. All prescriptions have been APPROPRIATELY filled. No suspicious activity was identified. 09/23/2022 by Mellisa Garcia PA-C PLAN - Increase Lyrica to 75 mg nightly - Labs: A1c, lipid panel - Dizziness labs: Mg, TSH, ESR for headache - Secondary stroke prevention outlined below - Consider occipital nerve block For reduction in the chances of further TIAs and strokes: - Target blood pressure is less than 130/80 mmHg - Target LDL ( Bad cholesterol ) less than 70 - Target HDL ( Good cholesterol ) greater than 50 - Triglyceride target within normal range - Hemoglobin A1c less than 7 Time spent included 40 min on the day of service, which included preparing to see the patient, [id number] patient care, completing clinical documentation, obtaining and/or reviewing separately obtained history, performing a medically appropriate examination, counseling and educating the patient/family/caregiver and ordering medications, tests, or procedures. No orders of the defined types were placed in this encounter. No follow-ups on file. This note was dictated using TapFame speech recognition software and may contain some errors that were a result of the program not accurately transcribing what was dictated, despite efforts to make corrections. Note that unless urgent, test and MRI results will be discussed at next follow-up visit. PROMIS (Patient-Reported Outcomes Measurement Information System) is a set of person-centered measures that evaluates and monitors physical, social, and emotional health. It can be used with the general population and with individuals living with chronic conditions. PROMIS 10: PHYSICAL AND MENTAL HEALTH: PHQ-9 06/24/2022 Score 4 documented in this encounter [facility] 09-11-2022 Note HNO ID: [id number] Author: Divina Woo APRN.HOME CARE ASSOCIATE Service: ? Author Type: Nurse Practitioner Type: Progress Notes Filed: 09/11/2022 3:12 PM Note Text: VIRTUAL VISIT PROGRESS NOTE This is a virtual visit using Digerati video visit. It required patient-provider interaction for the medical decision making as documented below. Mark Melchor is a 72 year old female seen for positive covid test at home. Patient reports that symptoms started 09/10/2022 and she had a positive test on 09/11/2022. Patient reports that she woke up and sinus congestion, rhinorrhea, body aches, headache. Patient reports use of tylenol which was effective at relieving headache. Denies chest pain, shortness of breath. HISTORY REVIEWED (electronic chart updated): PAST MEDICAL HISTORY Diagnosis Date Arthritis Osteopenia Overactive bladder Prediabetes Primary osteoarthritis of right shoulder Rotator cuff arthropathy, right Stroke (HCC) had TIA (unsure when) showed on an MRI Vertigo Dr. Tucker PAST SURGICAL HISTORY Procedure Laterality Date ABDOMINAL SURGERY HX DELIVERY ONLY , low transverse x2 COLONOSCOPY 2016-repeat in 5 years. COLONOSCOPY 11/06/2021 repeat in 5 years DILATION AND CURETTAGE DXAND/THER NONOBSTETRIC 1985 Dilation AND curettage PAST SURGICAL HISTORY OF aspirated breast cyst TUBAL LIGATION FAMILY HISTORY Problem Relation Age of Onset Colon Cancer Father 63 Hypertension Father Diabetes Father Osteoporosis Mother Diabetes Sister No Known Problems Brother Osteoporosis Maternal Grandmother Stroke Paternal Grandfather Breast Cancer Maternal Aunt No Known Problems Sister No Known Problems Brother other (Other) Son killed in [place] Social History Tobacco Use Smoking status: Never Smokeless tobacco: Never Vaping Use Vaping Use: Never used Substance Use Topics Alcohol use: Yes Comment: 1 drink every 2 weeks Drug use: No Current Outpatient Medications Medication Sig diazePAM (VALIUM) 5 mg tablet Take one tablet 30 minute prior to flight pregabalin (LYRICA) 50 mg capsule Take 1 capsule by mouth daily at bedtime for 90 days. rosuvastatin (CRESTOR) 5 mg tablet Take 1 tablet by mouth daily at bedtime. aspirin, enteric coated (ASPIRIN, ENTERIC COATED) 81 mg EC tablet Take 81 mg by mouth once daily. calcium carbonate/vitamin D3 (CALCIUM 600 + D ORAL) Take 1 tablet by mouth twice daily. No current facility-administered medications for this visit. ALLERGIES No Known Allergies REVIEW OF SYSTEMS: SEE HPI PHYSICAL EXAMINATION: VIDEO EXAM: (if completed, performed via video enabled technology) GENERAL: alert and appropriate, in no distress, well-hydrated, well nourished, and happy, smiling, interactive NOSE: rhinorrhea noted RESPIRATORY: breathing non-labored I spent a total of 15 minutes on the date of the service which included preparing to see the patient, [id number] patient care, completing clinical documentation, obtaining and/or reviewing separately obtained history, performing a medically appropriate examination, counseling and educating the patient/family/caregiver, ordering medications, tests, or procedures, communicating results to the patient/family/caregiver, and care coordination (not separately reported) Molnupiravir Eligibility and Patient Discussion [facility] Formulary Restriction Criteria: Adult outpatients 18 years and older with ALL of the following: [x] Patient has positive SARS-COV-2 viral test (PCR or antigen test) during current illness [x] Patient has symptoms for 5 days or less [x] Not requiring hospitalization at any time for management of COVID-19 [x] Not requiring supplemental oxygen or a change in baseline supplemental oxygen [x] Not utilized for pre-exposure or post-exposure prophylaxis for prevention of COVID-19 [x] Patient is not or lactating [x] Meeting at least one of the criteria for high risk of progression to severe COVID-19: [x] Age over 65 years [] Cancer [] Chronic kidney disease [] Chronic liver disease [] Chronic lung diseases, including cystic fibrosis [] Dementia or other neurological conditions [] Diabetes (type 1 or type 2) [] Disabilities, including Down syndrome and neurodevelopmental disorders [] Heart conditions [] HIV infection [] Immunocompromised state [] Mental health conditions [] Medical related technological dependence (tracheostomy, gastrostomy, or positive pressure ventilation (not related to COVID) [] Overweight and obesity (BMI greater or equal to 25 for adults) [] Physical inactivity [] Sickle cell disease or thalassemia [] Smoking, current or former [] Solid organ or blood stem cell transplant [] Stroke or cerebrovascular disease [] Substance use disorders [] Tuberculosis [] People from racial and ethnic minority groups Criteria above are met: Yes Date of Positive Test:09/11/2022 Date (more content not included)... [facility] 09-11-2022 Miscellaneous Notes I have sent this medication to [facility]. documented in this encounter [facility] 09-11-2022 Instructions Divina Woo APRN.CNP - 09/11/2022 3:07 PM EST Fact Sheet for Patients And Caregivers Emergency Use Authorization (EUA) Of Molnupiravir For Coronavirus Disease 2019 (COVID-19) What is the most important information I should know about molnupiravir? Molnupiravir may cause serious side effects, including: Molnupiravir may cause harm to your unborn baby. It is not known if molnupiravir will harm your baby if you take molnupiravir during . Molnupiravir is not recommended for use in . Molnupiravir has not been studied in . Molnupiravir was studied in animals only. When molnupiravir was given to animals, molnupiravir caused harm to their unborn babies. You and your healthcare provider may decide that you should take molnupiravir during if there are no other COVID-19 treatment options authorized by the FDA that are accessible or clinically appropriate for you. If you and your healthcare provider decide that you should take molnupiravir during , you and your healthcare provider should discuss the known and potential benefits and the potential risks of taking molnupiravir during . For individuals who are able to become : You should use a reliable method of control (contraception) consistently and correctly during treatment with molnupiravir and for 4 days after the last dose of molnupiravir. Talk to your healthcare provider about reliable control methods. Before starting treatment with molnupiravir your healthcare provider may do a test to see if you are before starting treatment with molnupiravir. Tell your healthcare provider right away if you become or think you may be during treatment with molnupiravir. Surveillance Program: There is a surveillance program for individuals who take molnupiravir during . The purpose of this program is to collect information about the health of you and your baby. Talk to your healthcare provider about how to take part in this program. If you take molnupiravir during and you agree to participate in the surveillance program and allow your healthcare provider to share your information with [employer], then your healthcare provider will report your use of molnupiravir during to [employer]. by calling or [email or web address]. For individuals who are sexually active with partners who are able to become : It is not known if molnupiravir can affect sperm. While the risk is regarded as low, animal studies to fully assess the potential for molnupiravir to affect the babies of males treated with molnupiravir have not been completed. A reliable method of control (contraception) should be used consistently and correctly during treatment with molnupiravir and for at least 3 months after the last dose. The risk to sperm beyond 3 months is not known. Studies to understand the risk to sperm beyond 3 months are ongoing. Talk to your healthcare provider about reliable control methods. Talk to your healthcare provider if you have questions or concerns about how molnupiravir may affect sperm. You are being given this fact sheet because your healthcare provider believes it is necessary to provide you with molnupiravir for the treatment of adults with rhta-lx-mpqkuqua coronavirus disease 2019 (COVID-19) with positive results of direct SARS-CoV-2 viral testing, and who are at high risk for progressing to severe COVID-19 including hospitalization or , and for whom other COVID-19 treatment options authorized by the FDA are not accessible or clinically appropriate. The [place].S. Food and Drug Administration (FDA) has issued an Emergency Use Authorization (EUA) to make molnupiravir available during the COVID-19 pandemic (for more details about an EUA please see What is an Emergency Use Authorization? at the end of this document). Molnupiravir is not an FDA-approved medicine in the [place]. Read this Fact Sheet for information about molnupiravir. Talk to your healthcare provider about your options if you have any questions. It is your choice to take molnupiravir. What is COVID-19? COVID-19 is caused by a virus called a coronavirus. You can get COVID-19 through close contact with another person who has the virus. COVID-19 illnesses have ranged from very tejh-tc-fekljf, including illness resulting in . While information so far suggests that most COVID-19 illness is mild, serious illness can happen and may cause some of your other medical conditions to become worse. Older people and people of all ages with severe, long lasting (chronic) medical conditions like heart disease, lung disease and diabetes, for example seem to be at higher risk of being hospitalized for COVID-19. What is molnupiravir? Molnupiravir is an investigational medicine used to treat ytww-ur-qqggflzl COVID-19 in adults: with positive results of direct SARS-CoV-2 viral testing, and who are at high risk for progressing to severe COVID-19 including hospitalization or , and for whom other COVID-19 treatment options authorized by the FDA are not accessible or clinically appropriate. The FDA has authorized the emergency use of molnupiravir for the treatment of mild-tomoderate COVID-19 in adults under an EUA. For more information on EUA, see the What is an Emergency Use Authorization (EUA)? section at the end of this Fact Sheet. Molnupiravir is not authorized: for use in people less than 18 years of age. for prevention of COVID-19. for people needing hospitalization for COVID-19. for use for longer than 5 consecutive days. What should I tell my healthcare provider before I take molnupiravir? Tell your healthcare provider if you: Have any allergies Are or plan to breastfeed Have any serious illnesses Are taking any medicines (prescription, nfev-jtn-twsfdaz, vitamins, or herbal products). How do I take molnupiravir? Take molnupiravir exactly as your healthcare provider tells you to take it. Take 4 capsules of molnupiravir every 12 hours (for example, at 8 am and at 8 pm) Take molnupiravir for 5 days. It is important that you complete the full 5 days of treatment with molnupiravir. Do not stop taking molnupiravir before you complete the full 5 days of treatment, even if you feel better. Take molnupiravir with or without food. You should stay in isolation for as long as your healthcare provider tells you to. Talk to your healthcare provider if you are not sure about how to properly isolate while you have COVID-19. Swallow molnupiravir capsules whole. Do not open, break, or crush the capsules. If you cannot swallow capsules whole, tell your healthcare provider. What to do if you miss a dose: If it has been less than 10 hours since the missed dose, take it as soon as you remember If it has been more than 10 hours since the missed dose, skip the missed dose and take your dose at the next scheduled time. Do not double the dose of molnupiravir to make up for a missed dose. What are the important possible side effects of molnupiravir? Possible side effects of molnupiravir are: See, What is the most important information I should know about molnupiravir? diarrhea nausea dizziness These are not all the possible side effects of molnupiravir. Not many people have taken molnupiravir. Serious and unexpected side effects may happen. This medicine is still being studied, so it is possible that all of the risks are not known at this time. What other treatment choices are there? Like molnupiravir, FDA may allow for the emergency use of other medicines to treat people with COVID-19. Go to https://www.fda.gov/emergency-pre wjmlyuqcf-sra-nunjdziv/mcm-legalr hczbewddj-ysm-viugpo-framework/em czekxot-eaf-rwzhxjeolnqoy for more information. It is your choice to be treated or not to be treated with molnupiravir. Should you decide not to take it, it will not change your standard medical care. What if I am ? is not recommended during treatment with molnupiravir and for 4 days after the last dose of molnupiravir. If you are or plan to breastfeed, talk to your healthcare provider about your options and specific situation before taking molnupiravir. How do I report side effects with molnupiravir? Contact your healthcare provider if you have any side effects that bother you or do not go away. Report side effects to FDA MedWatch at www.fda.gov/medwatch or call 7-314-TVJ-1868 ( ). How should I store molnupiravir? Store molnupiravir capsules at room temperature between 68 F to 77 F (20 C to 25 C). Keep molnupiravir and all medicines out of the reach of children and pets. How can I learn more about COVID-19? Ask your healthcare provider. Visit www.cdc.gov/COVID19 Contact your local or state public health department. Call [employer] at (toll free in the [place] Visit www[employer] Capital What Is an Emergency Use Authorization (EUA)? The [place] FDA has made molnupiravir available under an emergency access mechanism called an Emergency Use Authorization (EUA) The EUA is supported by a Ink Grinder of Health and Human Service (HHS) declaration that circumstances exist to justify emergency use of drugs and biological products during the COVID-19 pandemic. Molnupiravir for the treatment of yatz-bq-lriyaamj COVID-19 in adults with positive results of direct SARS-CoV-2 viral testing, who are at high risk for progression to severe COVID-19, including hospitalization or , and for whom alternative COVID-19 treatment options authorized by FDA are not accessible or clinically appropriate, has not undergone the same type of review as an FDA-approved product. In issuing an EUA under the COVID-19 public health emergency, the FDA has determined, among other things, that based on the total amount of scientific evidence available including data from adequate and well-controlled clinical trials, if available, it is reasonable to believe that the product may be effective for diagnosing, treating, or preventing COVID-19, or a serious or life-threatening disease or condition caused by COVID19; that the known and potential benefits of the product, when used to diagnose, treat, or prevent such disease or condition, outweigh the known and potential risks of such product; and that there are no adequate, approved, and available alternatives. All of these criteria must be met to allow for the product to be used in the treatment of patients during the COVID-19 pandemic. The EUA for molnupiravir is in effect for the duration of the COVID-19 declaration justifying emergency use of molnupiravir, unless terminated or revoked (after which molnupiravir may no longer be used under the EUA). For patent information: www.Rodati.RxVantage/research/patent Copyright 2020 [employer] [place], [place] and its affiliates. All rights reserved. [id number] Issued: 09/12/2021 documented in this encounter [facility] 09-11-2022 History of Present illness Narrative VIRTUAL VISIT PROGRESS NOTE This is a virtual visit using Digerati video visit. It required patient-provider interaction for the medical decision making as documented below. Mark Melchor is a 72 year old female seen for positive covid test at home. Patient reports that symptoms started 09/10/2022 and she had a positive test on 09/11/2022. Patient reports that she woke up and sinus congestion, rhinorrhea, body aches, headache. Patient reports use of tylenol which was effective at relieving headache. Denies chest pain, shortness of breath. HISTORY REVIEWED (electronic chart updated): PAST MEDICAL HISTORY Diagnosis Date Arthritis Osteopenia Overactive bladder Prediabetes Primary osteoarthritis of right shoulder Rotator cuff arthropathy, right Stroke (HCC) had TIA (unsure when) showed on an MRI Vertigo Dr. Tucker PAST SURGICAL HISTORY Procedure Laterality Date ABDOMINAL SURGERY HX DELIVERY ONLY , low transverse x2 COLONOSCOPY 2016-repeat in 5 years. COLONOSCOPY 11/06/2021 repeat in 5 years DILATION & CURETTAGE DX&/THER NONOBSTETRIC 1985 Dilation & curettage PAST SURGICAL HISTORY OF aspirated breast cyst TUBAL LIGATION FAMILY HISTORY Problem Relation Age of Onset Colon Cancer Father 63 Hypertension Father Diabetes Father Osteoporosis Mother Diabetes Sister No Known Problems Brother Osteoporosis Maternal Grandmother Stroke Paternal Grandfather Breast Cancer Maternal Aunt No Known Problems Sister No Known Problems Brother other (Other) Son killed in [place] Social History Tobacco Use Smoking status: Never Smokeless tobacco: Never Vaping Use Vaping Use: Never used Substance Use Topics Alcohol use: Yes Comment: 1 drink every 2 weeks Drug use: No Current Outpatient Medications Medication Sig diazePAM (VALIUM) 5 mg tablet Take one tablet 30 minute prior to flight pregabalin (LYRICA) 50 mg capsule Take 1 capsule by mouth daily at bedtime for 90 days. rosuvastatin (CRESTOR) 5 mg tablet Take 1 tablet by mouth daily at bedtime. aspirin, enteric coated (ASPIRIN, ENTERIC COATED) 81 mg EC tablet Take 81 mg by mouth once daily. calcium carbonate/vitamin D3 (CALCIUM 600 + D ORAL) Take 1 tablet by mouth twice daily. No current facility-administered medications for this visit. ALLERGIES No Known Allergies REVIEW OF SYSTEMS: SEE HPI PHYSICAL EXAMINATION: VIDEO EXAM: (if completed, performed via video enabled technology) GENERAL: alert and appropriate, in no distress, well-hydrated, well nourished, and happy, smiling, interactive NOSE: rhinorrhea noted RESPIRATORY: breathing non-labored I spent a total of 15 minutes on the date of the service which included preparing to see the patient, [id number] patient care, completing clinical documentation, obtaining and/or reviewing separately obtained history, performing a medically appropriate examination, counseling and educating the patient/family/caregiver, ordering medications, tests, or procedures, communicating results to the patient/family/caregiver, and care coordination (not separately reported) Molnupiravir Eligibility and Patient Discussion [facility] Formulary Restriction Criteria: Adult outpatients 18 years and older with ALL of the following: [x] Patient has positive SARS-COV-2 viral test (PCR or antigen test) during current illness [x] Patient has symptoms for 5 days or less [x] Not requiring hospitalization at any time for management of COVID-19 [x] Not requiring supplemental oxygen or a change in baseline supplemental oxygen [x] Not utilized for pre-exposure or post-exposure prophylaxis for prevention of COVID-19 [x] Patient is not or lactating [x] Meeting at least one of the criteria for high risk of progression to severe COVID-19: [x] Age over 65 years [] Cancer [] Chronic kidney disease [] Chronic liver disease [] Chronic lung diseases, including cystic fibrosis [] Dementia or other neurological conditions [] Diabetes (type 1 or type 2) [] Disabilities, including Down syndrome and neurodevelopmental disorders [] Heart conditions [] HIV infection [] Immunocompromised state [] Mental health conditions [] Medical related technological dependence (tracheostomy, gastrostomy, or positive pressure ventilation (not related to COVID) [] Overweight and obesity (BMI greater or equal to 25 for adults) [] Physical inactivity [] Sickle cell disease or thalassemia [] Smoking, current or former [] Solid organ or blood stem cell transplant [] Stroke or cerebrovascular disease [] Substance use disorders [] Tuberculosis [] People from racial and ethnic minority groups Criteria above are met: Yes Date of Positive Test:09/11/2022 Date of Symptom Onset: 09/10/2022 Patient received COVID vaccine: Yes / status reviewed: Females: [x] Patient is not currently and there is no possibility the patient could be (select one of the following): [] test does not need to be confirmed in patients who have undergone permanent sterilization, are currently using an intrauterine system or contraceptive implant, or in whom is not possible. [] Patients not meeting conditions above: assess whether the patient is based on the first day of the last menstrual period in individuals who have regular menstrual cycles, is using reliable method of contraception correctly and consistently or have had a negative test [] A test is recommended if the individual has irregular menstrual cycles, is unsure of the first day of the last menstrual period or is not using effective contraception correctly and consistently [] Patient is not currently . is not recommended during treatment and for four days after final dose of molnupiravir. [] Females have been advised to use a reliable method of contraception correctly and consistently for the duration of treatment and for four days after the last dose of molnupiravir Males: [] Sexually active male with partner(s) of childbearing potential has been advised to use a reliable method of contraception correctly and consistently for intercourse for the duration of treatment and for three months after the last dose of molnupiravir I have discussed the use of the investigational therapeutic, molnupiravir, for the treatment of mild to moderate COVID-19 and its use under Emergency Use Authorization with the patient. The patient was informed that molnupiravir is not an FDA approved drug and that it is authorized for use under this Emergency Use Authorization. The patient was also informed of the significant known benefits and potential risks of molnupiravir, and the extent to which such potential risks and benefits are unknown. The patient was informed that there is mandatory reporting of all medication errors and serious adverse events potentially related to molnupiravir treatment within 7 calendar days from the onset of the event and that events up to 28 days after completion of therapy need to be reported. The discussion included alternatives to receiving molnupiravir, including clinical trials, and potential the risks and benefits of those alternatives. The patient was provided electronically with the Fact Sheet for Patients, Parents and Caregivers . The patient was also instructed that in addition to the treatment with molnupiravir, he/she should continue to self-isolate and use infection control measures (e.g., wear mask, isolate, social distance, avoid sharing personal items, clean and disinfect high touch surfaces, and frequent handwashing) according to CDC guidelines. The patient stated understanding and gave verbal consent to proceeding with molnupiravir treatment. ASSESSMENT/PLAN: 1. COVID-19 - ICD9: 079.89, ICD10: U07.1 - MOLNUPIRAVIR 200 MG CAPSULE (EUA) - Continue OTC medications for symptom management GIULIA Pinon APRN.CNP September 11, 2022 3:04 PM documented in this encounter [facility] 07-14-2022 History of Present illness Narrative 07/14/2022 Patient presents with: Anxiety: Pre flight anxiety; upcoming flight SUBJECTIVE: This is a 71 year old that is here today for Above Complaints.. Will be flying to [place] on Thursday. Has direct flight. Reports fear of flying last time got some valium and it helped. Will be be going on a couple of other flights this year. PAST MEDICAL HISTORY Diagnosis Date Arthritis Osteopenia Overactive bladder Prediabetes Primary osteoarthritis of right shoulder Rotator cuff arthropathy, right Stroke (HCC) had TIA (unsure when) showed on an MRI Vertigo Dr. Tucker ALLERGIES Patient has no known allergies. MEDICATIONS Current Outpatient Medications Medication Sig pregabalin (LYRICA) 50 mg capsule Take 1 capsule by mouth daily at bedtime for 90 days. rosuvastatin (CRESTOR) 5 mg tablet Take 1 tablet by mouth daily at bedtime. aspirin, enteric coated (ASPIRIN, ENTERIC COATED) 81 mg EC tablet Take 81 mg by mouth once daily. calcium carbonate/vitamin D3 (CALCIUM 600 + D ORAL) Take 1 tablet by mouth twice daily. No current facility-administered medications for this visit. Medications and allergies reviewed by this provider. SOCIAL HISTORY Social History Tobacco Use Smoking status: Never Smokeless tobacco: Never Vaping Use Vaping Use: Never used Substance Use Topics Alcohol use: Yes Comment: 1 drink every 2 weeks Drug use: No REVIEW OF SYSTEMS All other reviewed and negative other than HPI. OBJECTIVE: BP 130/78 Pulse 75 Resp 18 Wt 64.2 kg (141 lb 9.6 oz) SpO2 95% BMI 25.08 kg/m . Vital signs reviewed by this provider. APPEARANCE Well appearing, alert, in no acute distress, well-hydrated, well nourished. PSYCH: Posture and motor behavior: normal posture and motor behavior Dress, grooming, personal hygiene: normal dress and grooming Facial expression: good eye contact Speech: normal speech Mood: cheerful Coherency and relevance of thought: normal thought processes Memory: normal memory ADVANCE DIRECTIVE DISCUSSION Never done DEPRESSION ASSESSMENT Never done MAMMOGRAM due on 05/28/2023 DIABETES SCREEN due on 09/03/2024 LIPID SCREEN due on 09/03/2026 COLORECTAL CANCER SCREENING due on 11/06/2026 DTAP,TDAP,TD(3 - Td or Tdap) due on 11/08/2028 BONE DENSITY Completed INFLUENZA Completed HEPATITIS C SCREENING Completed SHINGRIX VACCINE Completed COVID-19 VACCINE Completed PNEUMOCOCCAL: 65+ Completed ASSESSMENT/PLAN: 1. 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 All prescriptions have been APPROPRIATELY filled. No suspicious activity was identified. 07/14/2022 by GIULIA Rojas APRN.CNP Prescription instructions reviewed with patient as applicable. Patient advised if symptoms do not improve or if symptoms worsen sooner, to contact their primary care physician. Potential red flag symptoms discussed with the patient. Reviewed appropriate action plan to take if red flag symptoms occur. Patient agreeable to treatment plan. I spent a total of 20 minutes on the date of the service which included preparing to see the patient, [id number] patient care, completing clinical documentation, obtaining and/or reviewing separately obtained history, performing a medically appropriate examination, counseling and educating the patient/family/caregiver, and ordering medications, tests, or procedures. documented in this encounter [facility] 06-30-2022 Miscellaneous Notes Pt notified of results via [employer]. Leslie Harden Ma Please call patient and let her know ultrasound does not show any fluid collection or mass in area. At this point I would continue to monitor area and if enlarges return to office. Enmanuel Waldron APRN.CNP documented in this encounter [facility] 06-26-2022 Note HNO ID: [id number] Author: Dawna Jimenez RT(R) Service: ? Author Type: Technologist Type: Progress Notes Filed: 06/26/2022 3:12 PM Note Text: Radiology Service Progress Note PATIENT NAME: Mark Melchor DATE OF SERVICE: June 26, 2022 TIME: 3:11 PM PATIENT IDENTITY VERIFICATION COMPLETED USING TWO (2) IDENTIFIERS: Name and Date of confirmed by patient verbally. FALL SCREENING: Has the patient had 2 falls in the last year or 1 fall with injury or currently using an Ambulatory Assistive Device (Walker, Cane, Wheelchair, Crutches, etc.)? No PATIENT GENDER DATA: Female. status: : No status: NO. PATIENT RELEVANT IMPLANT DATA REVIEWED: Not Applicable RADIOLOGY DEPARTMENT: Ultrasound PERIPHERAL IV DATA: Not applicable SIGNED BY: RT Bunny(Kae) June 26, 2022 3:11 PM [facility] 06-26-2022 History of Present illness Narrative Radiology Service Progress Note PATIENT NAME: Mark Melchor DATE OF SERVICE: June 26, 2022 TIME: 3:11 PM PATIENT IDENTITY VERIFICATION COMPLETED USING TWO (2) IDENTIFIERS: Name and Date of confirmed by patient verbally. FALL SCREENING: Has the patient had 2 falls in the last year or 1 fall with injury or currently using an Ambulatory Assistive Device (Walker, Cane, Wheelchair, Crutches, etc.)? No PATIENT GENDER DATA: Female. status: : No status: NO. PATIENT RELEVANT IMPLANT DATA REVIEWED: Not Applicable RADIOLOGY DEPARTMENT: Ultrasound PERIPHERAL IV DATA: Not applicable SIGNED BY: RT Bunny(R) June 26, 2022 3:11 PM documented in this encounter [facility] 06-25-2022 Miscellaneous Notes PDMP website checked and validated. All prescriptions have been APPROPRIATELY filled. No suspicious activity was identified. 06/25/2022 by Rafy Tucker MD Needs follow up for additional refills. Rafy Tucker MD Patient phones requesting refills as follows: Last office visit: 08/30/2021 Next office visit: 08/30/2022 Last refill: 03/10/2022 Requested Prescriptions Pending Prescriptions Disp Refills pregabalin (LYRICA) 50 mg capsule 90 capsule 0 Assessment and Plan: ASSESSMENT/PLAN: 1. Vertigo - ICD9: 780.4, ICD10: R42 (primary diagnosis) 2. History of stroke - ICD9: V12.54, ICD10: Z86.73 3. Nonintractable episodic headache, unspecified headache type - ICD9: 784.0, ICD10: R51.9 Patient overall doing well. Still occasional episode of vertigo or disequilibrium but rare. Possibly secondary to known history of cerebellar stroke. Pt feels like she no longer needs meds, and thus will d/c Lyrica. Headaches also well controlled now as above, and when present, only lasting minutes. Advised pt that if vertigo or headaches worsen to contact us to restart Lyrica. Neurologic exam non-focal. No additional recs at this time. For stroke prevention continue ASA and statin therapy (to follow up lipid levels with PCP next week). BP goal <140/90. Glucose goal <140. Follow up 1 year or sooner prn. Rafy Tucker MD Please review and advise. Camille Ponce LPN documented in this encounter [facility] 06-25-2022 History of Present illness Narrative 06/25/2022 Patient presents with: Derm Problem: Lump on left lower leg x3-4 days; pain in the area x3 weeks SUBJECTIVE: This is a 71 year old that is here today for Above Complaints.. Reports pain for three weeks and then noticed a lump to area about 3-4 days ago. Pain can be a dull ache at times. Did notice some purple discoloration to area. Has uses ice to area but did not seem to help. Denies recent or past injury, fevers, chills, redness, excessive tenderness or warmth to area PAST MEDICAL HISTORY Diagnosis Date Arthritis Osteopenia Overactive bladder Prediabetes Primary osteoarthritis of right shoulder Rotator cuff arthropathy, right Stroke (HCC) had TIA (unsure when) showed on an MRI Vertigo Dr. Tucker ALLERGIES Patient has no known allergies. MEDICATIONS Current Outpatient Medications Medication Sig rosuvastatin (CRESTOR) 5 mg tablet Take 1 tablet by mouth daily at bedtime. pregabalin (LYRICA) 50 mg capsule take 1 capsule by mouth at bedtime for 90 DAYS aspirin, enteric coated (ASPIRIN, ENTERIC COATED) 81 mg EC tablet Take 81 mg by mouth once daily. calcium carbonate/vitamin D3 (CALCIUM 600 + D ORAL) Take 1 tablet by mouth twice daily. oxybutynin (DITROPAN) 5 mg tablet Take 1 tablet by mouth twice daily. polyethylene glycol 3350 (MIRALAX, GLYCOLAX) 17 gram/dose powder Use as directed for Miralax / Gatorade Bowel Prep Kit Gatorade Sports Drink Use as directed for Miralax / Gatorade Bowel Prep Kit Bisacodyl (DULCOLAX) 5 mg tab Use as directed for Miralax / Gatorade Bowel Prep Kit No current facility-administered medications for this visit. Medications and allergies reviewed by this provider. SOCIAL HISTORY Social History Tobacco Use Smoking status: Never Smokeless tobacco: Never Vaping Use Vaping Use: Never used Substance Use Topics Alcohol use: Yes Comment: 1 drink every 2 weeks Drug use: No REVIEW OF SYSTEMS All other reviewed and negative other than HPI. OBJECTIVE: BP 138/84 Pulse 68 Temp 37.1 C (98.7 F) Resp 16 Wt 63.6 kg (140 lb 3.2 oz) SpO2 98% BMI 24.84 kg/m . Vital signs reviewed by this provider. APPEARANCE Well appearing, alert, in no acute distress, well-hydrated, well nourished. EYES conjunctiva and sclera normal. Left lower leg: Soft mass approximately 1.5 cm x 3.cm. No ecchymosis, erythema, excessive warmth or tenderness to area SKIN Skin color, texture, turgor normal, no suspicious rashes or lesions to exposed skin ADVANCE DIRECTIVE DISCUSSION Never done DEPRESSION ASSESSMENT Never done MAMMOGRAM due on 05/28/2023 DIABETES SCREEN due on 09/03/2024 LIPID SCREEN due on 09/03/2026 COLORECTAL CANCER SCREENING due on 11/06/2026 DTAP,TDAP,TD(3 - Td or Tdap) due on 11/08/2028 BONE DENSITY Completed INFLUENZA Completed HEPATITIS C SCREENING Completed SHINGRIX VACCINE Completed COVID-19 VACCINE Completed PNEUMOCOCCAL: 65+ Completed ASSESSMENT/PLAN: 1. Skin lump of leg, left - ICD9: 782.2, ICD10: R22.42 - no red flag symptoms or exam findings - red flag symptoms discussed, verbalizes understanding - US EXTREMITY MASS/FLUID COLLECTION LT - follow-up pending testing, to ER with red flag symptoms Enmanuel Waldron APRN.CNP Prescription instructions reviewed with patient as applicable. Patient advised if symptoms do not improve or if symptoms worsen sooner, to contact their primary care physician. Potential red flag symptoms discussed with the patient. Reviewed appropriate action plan to take if red flag symptoms occur. Patient agreeable to treatment plan. I spent a total of 25 minutes on the date of the service which included preparing to see the patient, [id number] patient care, completing clinical documentation, obtaining and/or reviewing separately obtained history, performing a medically appropriate examination, counseling and educating the patient/family/caregiver, and ordering medications, tests, or procedures. documented in this encounter [facility] 05-28-2022 Miscellaneous Notes May 28, 2022 PID: [id number] Mark Melchor [address] [place] [id number] Dear Mrs. Melchor, We are pleased to inform you that the results of your recent breast imaging exam on 05/28/2022 are normal. Early detection of cancer is very important. We also understand recommendations regarding breast cancer screening are controversial. Please discuss with your primary care provider which strategy is best for you and whether a mammogram is right for you. Your imaging studies and report will be kept on file at [facility] as part of your permanent medical record and are available for your continuing care. Thank you for allowing us to help in meeting your health care needs. Sincerely, Dr. Crawford Interpreting Radiologist [facility] (Normal over 40) documented in this encounter [facility] 05-28-2022 History of Present illness Narrative Radiology Service Progress Note PATIENT NAME: Mark Melchor DATE OF SERVICE: May 28, 2022 TIME: 1:07 PM PATIENT IDENTITY VERIFICATION COMPLETED USING TWO (2) IDENTIFIERS: Name and Date of confirmed by patient verbally. FALL SCREENING: Has the patient had 2 falls in the last year or 1 fall with injury or currently using an Ambulatory Assistive Device (Walker, Cane, Wheelchair, Crutches, etc.)? No PATIENT GENDER DATA: Female. status: : No status: NO. PATIENT RELEVANT IMPLANT DATA REVIEWED: Not Applicable RADIOLOGY DEPARTMENT: Mammography PERIPHERAL IV DATA: Not applicable SIGNED BY: Odalis Short May 28, 2022 1:07 PM documented in this encounter [facility] 05-27-2022 Miscellaneous Notes Patient telephoned and made aware. Natty Hernandez LPN Please call patient and let her know her order for mammogram has been placed. She may schedule at her convenience. Thanks, Enmanuel Waldron APRN.NATAN Pt is requesting mammogram order to be placed, please review and advise. CARLTON Del Castillo May 26, 2022 10:52 AM documented in this encounter [facility] 04-14-2022 Miscellaneous Notes Patient phones requesting refills as follows: Pending Prescriptions Disp Refills ROSUVASTATIN 5 MG TABLET 90 tablet 1 Sig: Take 1 tablet by mouth daily at bedtime. CLEMENT: No EBONY 12/30/21 NOV no upcoming appt noted Please review and advise. Jeanette Bradley LPN documented in this encounter [facility] 03-10-2022 Miscellaneous Notes PDMP website checked and validated. All prescriptions have been APPROPRIATELY filled. No suspicious activity was identified. March 10, 2022 Ceci Jacob APRN.HOME CARE ASSOCIATE EBONY: 08/30/21 NOV: None scheduled at this time Physician: Dr. Tucker Call from pharmacy requesting refill. Please E-Scribe Pending Prescriptions Disp Refills PREGABALIN 50 MG CAPSULE 90 capsule Sig: take 1 capsule by mouth at bedtime for 90 DAYS POLA Class: C-V CLEMENT: Yes Pharmacy Name: [email or web address] Phone #: [phone] Rosa Archuleta 08/30/21 Assessment and Plan: ASSESSMENT/PLAN: 1. Vertigo - ICD9: 780.4, ICD10: R42 (primary diagnosis) 2. History of stroke - ICD9: V12.54, ICD10: Z86.73 3. Nonintractable episodic headache, unspecified headache type - ICD9: 784.0, ICD10: R51.9 Patient overall doing well. Still occasional episode of vertigo or disequilibrium but rare. Possibly secondary to known history of cerebellar stroke. Pt feels like she no longer needs meds, and thus will d/c Lyrica. Headaches also well controlled now as above, and when present, only lasting minutes. Advised pt that if vertigo or headaches worsen to contact us to restart Lyrica. Neurologic exam non-focal. No additional recs at this time. For stroke prevention continue ASA and statin therapy (to follow up lipid levels with PCP next week). BP goal <140/90. Glucose goal <140. Follow up 1 year or sooner prn. documented in this encounter [facility] 02-19-2022 History of Present illness Narrative Associated Order(s): Large Joint Arthro/Inj: R glenohumeral [facility] DEPARTMENT OF ORTHOPAEDIC SURGERY OFFICE VISIT DOCUMENTATION NOTE ASSESSMENT AND PLAN DIAGNOSIS: (M19.011) Primary osteoarthritis of right shoulder (primary encounter diagnosis) (M75.41) Impingement syndrome of right shoulder (M19.019) Arthritis of shoulder Mark Rose Chichiadrianna is here today at request of Dr.Bradley Koehler specifically for consultation of my opinion in regards to the chief complaint listed below. Correspondence will be shared today via the [facility] electronic health record or through regular mail, where applicable. Today, in detail, through a thorough evaluation, we discussed possible etiologies of pain and our plans for further diagnostic and therapeutic interventions. We discussed strategies for decreasing pain and improving strength, stability and motion. Patient's questions were answered in detailed. Patient verbalizes understanding and agrees with the treatment plan as discussed. MRI shoulder: SEVERE OSTEOARTHRITIS OF THE GLENOHUMERAL JOINT WITH JOINT BODIES. SMALL LOW-GRADE PARTIAL THICKNESS ARTICULAR SIDED TEAR OF THE SUPRASPINATUS TENDON SUPERIMPOSED ON TENDINOSIS. In addition to the comprehensive evaluation as outlined above and as a separate element to the visit today, we have made the determination to proceed with an injection to aid in the treatment of the patient's condition. We discussed risks, benefits, alternatives and expected outcomes of this injection in detail and the patient agreed to proceed. The procedure was performed as detailed below. Large Joint Arthro/Inj: R glenohumeral Informed Consent Consent Obtained: Verbal [place] Protocol A moment to CARE was completed. SIGN IN Personnel directly involved with the procedure wore the appropriate PPE. Patient/Surrogate Stated/Verified: Patient name, Date of , Relevant allergies and Intended procedure TIME OUT Intended patient and procedure match the source document(s). Consent documented and matches the intended procedure. Relevant labs, photos, and/or imaging studies have been reviewed. Correct side/site marked and visible. Medications required for procedure verified. 02/19/2022 2:33 PM The procedure site was prepped in the usual sterile fashion. Site: R glenohumeral Details:Musculoskeletal ultrasound was utilized to successfully localize placement of the injection needle at the appropriate site. Ultrasound images demonstrating local vasculature and demonstrating injection of solution were saved. Medications: 40 mg triamcinolone acetonide 40 mg/mL Anesthetics: 3 mL ropivacaine (PF) 5 mg/mL (0.5 %) Outcome: Tolerated well, no immediate complications Post-injection instructions were reviewed with the patient and the patient voiced understanding of these instructions. SIGN OUT Post-procedure follow-up management communicated and Plan of Care Visit completed when applicable Damien Carrillo DO Sports Medicine & Interventional Orthopaedics Department of Orthopaedic Surgery [facility] CHIEF COMPLAINT / REASON FOR VISIT Mark Melchor is a 71 year old female who presents today for a new evaluation of following complaint: Patient presents with: Right Shoulder - New, Pain HISTORY OF PRESENT ILLNESS (HPI) PAIN EVALUATION 02/19/2022 1430 Pain Level: 3 Pain Location: Shoulder-Right Description: Aching Duration Amount of Time: 4 Duration Units: Years Frequency: Intermittent Intervention/Comfort measure: Medication;Cold;Heat Brief overview: right shoulder pain for 4 years. No injury Location of pain: all around Does anything make it worse?: Yes, using it Does anything make it better?: No Any numbness or tingling? No Any popping, locking, or clicking ? Yes Previous Treatments Ice: Yes Heat: Yes Brace: No NSAIDs: Yes, Ibuprofen Injections: No Surgeries: No Physical Therapy: Yes Review of Systems Constitutional: Any recent fevers? No Gastrointestinal: Any abdominal discomfort? No Integumentary: Any recent skin changes or rashes? No Endocrine: Any diagnosis of diabetes? No Mark Melchor is a 71 year old female with the presenting complaint of New and Pain of the Right Shoulder. Mark reports a current pain level of 3 (Shoulder-Right). She describes the pain as Aching. The pain is Intermittent, and has lasted for 4 Years. Interventions tried include Medication, Cold, Heat. She was last seen in orthopaedic clinic for her shoulder on 05/20/2021 with Gareth Koehler. Most recent shoulder imaging was completed on 05/15/2021 (MRI SHOULDER WO IVCON RT) . In the past (based on all medication history on file), Mark has tried the following anti-inflammatory medications (not necessarily for this reason for visit): betamethasone acetate,sod phos, meloxicam, naproxen. Last XR Shoulder - Impression Only XR SHOULDER GENERAL 3V OR MORE AP/TRUE AP/OTHER RT Exam End: 05/06/2021 10:14 AM (Final result) Impression: IMPRESSION: Bilateral glenohumeral and acromioclavicular osteoarthrosis. Senior Quality Assurance Engineer: DELMAR Transcribe Date/Time: May 06 2021 10:33A... Complete Results Last MRI Shoulder - Impression Only MRI SHOULDER WO IVCON RT Exam End: 05/15/2021 9:05 AM (Final result) Impression: IMPRESSION: SEVERE OSTEOARTHRITIS OF THE GLENOHUMERAL JOINT WITH JOINT BODIES. SMALL LOW-GRADE PARTIAL THICKNESS ARTICULAR SIDED TEAR OF THE SUPRASPINATUS TENDON SUPERIMPOSED ON TENDINOSIS. ... Complete Results EXAMINATION Vitals: There were no vitals taken for this visit. Ortho Exam Musculoskeletal examination today was very difficult to complete secondary to pain. Patient was complaining of significant pain, despite several attempts at gentle physical examination. Limited range of motion and pain did not allow any further attempts at a more accurate examination for today's visit. IMAGING Final results and radiologist's interpretation, available in the [facility] health record. Images were reviewed in the office today. Interpretation of the performed imaging is chronic degenerative changes. documented in this encounter [facility] 12-30-2021 History of Present illness Narrative 12/30/2021 Patient presents with: UTI: urgency, frequency, burning x1 day SUBJECTIVE: This is a 71 year old that is here today for Above Complaints.. Last night started with urinary buring, urgency and frequency. Admits to some lower abdominal discomfort. Drinking cranberry juice and water. Denies fevers, chills, back pain, nausea, vomiting or hematuria. Reports she has had a few UTIs over a few months span Component Latest Ref Rng & Units 12/30/2021 GLUCOSE UA (POCT) Negative mg/dL Negative BILIRUBIN UA (POCT) Negative Negative KETONE UA (POCT) Negative mg/dL Negative SPECIFIC GRAVITY UA (POCT) 1.005 - 1.030 1.015 HEMOGLOBIN/BLOOD UA (POCT) Negative Moderate (A) PH UA (POCT) 4.5 - 8.0 7.0 PROTEIN UA (POCT) Negative mg/dL Negative UROBILINOGEN UA (POCT) Normal E.U./dL 0.2 NITRITE UA (POCT) Negative Negative LEUKOCYTES UA (POCT) Negative Moderate (A) COLOR UA (POCT) Yellow CLARITY UA (POCT) Clear PAST MEDICAL HISTORY Diagnosis Date Arthritis Osteopenia Overactive bladder Prediabetes Primary osteoarthritis of right shoulder Rotator cuff arthropathy, right Stroke (HCC) had TIA (unsure when) showed on an MRI Vertigo Dr. Tucker ALLERGIES Patient has no known allergies. MEDICATIONS Current Outpatient Medications Medication Sig pregabalin (LYRICA) 50 mg capsule Take 1 capsule by mouth daily at bedtime for 90 days. oxybutynin (DITROPAN) 5 mg tablet Take 1 tablet by mouth twice daily. rosuvastatin (CRESTOR) 5 mg tablet Take 1 tablet by mouth daily at bedtime. polyethylene glycol 3350 (MIRALAX, GLYCOLAX) 17 gram/dose powder Use as directed for Miralax / Gatorade Bowel Prep Kit Gatorade Sports Drink Use as directed for Miralax / Gatorade Bowel Prep Kit Bisacodyl (DULCOLAX) 5 mg tab Use as directed for Miralax / Gatorade Bowel Prep Kit aspirin, enteric coated (ASPIRIN, ENTERIC COATED) 81 mg EC tablet Take 81 mg by mouth once daily. calcium carbonate/vitamin D3 (CALCIUM 600 + D ORAL) Take 1 tablet by mouth twice daily. No current facility-administered medications for this visit. Medications and allergies reviewed by this provider. SOCIAL HISTORY Social History Tobacco Use Smoking status: Never Smoker Smokeless tobacco: Never Used Vaping Use Vaping Use: Never used Substance Use Topics Alcohol use: Yes Comment: 1 drink every 2 weeks Drug use: No REVIEW OF SYSTEMS All other reviewed and negative other than HPI. OBJECTIVE: BP 130/82 Pulse 62 Resp 18 Wt 64.1 kg (141 lb 6.4 oz) SpO2 99% BMI 25.05 kg/m . Vital signs reviewed by this provider. APPEARANCE Well appearing, alert, in no acute distress, well-hydrated, well nourished. EYES conjunctiva and sclera normal. HEART RRR with normal S1 and S2, no murmurs, no gallops, no JVD appreciated LUNG clear to auscultation. No wheezes, rhonchi, or rales ABDOMEN bowel sounds normoactive, no bruits, soft, non-distended. Mild TTP over suprapubic area BACK: No CVA tenderness SKIN Skin color, texture, turgor normal, no suspicious rashes or lesions ADVANCE DIRECTIVE DISCUSSION Never done DEPRESSION SCREENING due on 04/09/2022 MAMMOGRAM due on 06/17/2022 DIABETES SCREEN due on 09/03/2024 LIPID SCREEN due on 09/03/2026 COLORECTAL CANCER SCREENING due on 11/06/2026 DTAP,TDAP,TD(3 - Td or Tdap) due on 11/08/2028 BONE DENSITY Completed INFLUENZA Completed HEPATITIS C SCREENING Completed PNEUMOVAX AGE 65 AND OVER WITH 5YR LOOKBACK Completed SHINGRIX VACCINE Completed COVID-19 VACCINE Completed MENINGOCOCCAL CONJUGATE Aged Out ASSESSMENT/PLAN: 1. Symptoms of urinary tract infection - ICD9: 788.99, ICD10: R39.9 (primary diagnosis) recurrent - UA positive for fiona esterase and hematuria - Send urine for culture - Begin treatment with Macrobid 100 mg BID for 7 days - Patient education for prevention given - UA DIP, URINE (POC) - URINE CULTURE - NITROFURANTOIN MONOHYDRATE & MACROCRYSTAL 100 MG ORAL CAP - follow-up if symptoms fail to improve 2. Frequent UTI - ICD9: 599.0, ICD10: N39.0 - CONSULT TO UROLOGY Enmanuel Waldron APRN.HOME CARE ASSOCIATE Prescription instructions reviewed with patient as applicable. Patient advised if symptoms do not improve or if symptoms worsen sooner, to contact their primary care physician. Potential red flag symptoms discussed with the patient. Reviewed appropriate action plan to take if red flag symptoms occur. Patient agreeable to treatment plan. documented in this encounter [facility] 12-27-2021 Miscellaneous Notes Pt needs an appt with Dr. Carrillo for US guided glenohumeral injection. documented in this encounter [facility] documented as of this encounter (statuses as of 12/27/2021) [facility] History of Past illness Narrative* Problem Noted Date Resolved Date Meniere disease 09/04/2021 Overview: bilateral documented as of this encounter (statuses as of 12/30/2021) [facility] History of Past illness Narrative* Problem Noted Date Resolved Date Meniere disease 09/04/2021 Overview: bilateral documented as of this encounter (statuses as of 12/31/2021) [facility] History of Past illness Narrative* Problem Noted Date Resolved Date Meniere disease 09/04/2021 Overview: bilateral documented as of this encounter (statuses as of 02/19/2022) [facility] History of Past illness Narrative* Problem Noted Date Resolved Date Meniere disease 09/04/2021 Overview: bilateral documented as of this encounter (statuses as of 03/10/2022) [facility] History of Past illness Narrative* Problem Noted Date Resolved Date Meniere disease 09/04/2021 Overview: bilateral documented as of this encounter (statuses as of 04/14/2022) [facility] of Past illness Narrative* Problem Noted Date Resolved Date Meniere disease 09/04/2021 Overview: bilateral documented as of this encounter (statuses as of 05/27/2022) [facility] of Past illness Narrative* Problem Noted Date Resolved Date Meniere disease 09/04/2021 Overview: bilateral documented as of this encounter (statuses as of 05/29/2022) [facility] of Past illness Narrative* Problem Noted Date Resolved Date Meniere disease 09/04/2021 Overview: bilateral documented as of this encounter (statuses as of 05/30/2022) [facility] of Past illness Narrative* Problem Noted Date Resolved Date Meniere disease 09/04/2021 Overview: bilateral documented as of this encounter (statuses as of 06/25/2022) [facility] of Past illness Narrative* Problem Noted Date Resolved Date Meniere disease 09/04/2021 Overview: bilateral documented as of this encounter (statuses as of 06/25/2022) [facility] of Past illness Narrative* Problem Noted Date Resolved Date Meniere disease 09/04/2021 Overview: bilateral documented as of this encounter (statuses as of 06/26/2022) [facility] of Past [facility] Narrative* Problem Noted Date Resolved Date Meniere disease 09/04/2021 Overview: bilateral documented as of this encounter (statuses as of 06/27/2022) [facility] Past [facility] Narrative* Problem Noted Date Resolved Date Meniere disease 09/04/2021 Overview: bilateral documented as of this encounter (statuses as of 06/30/2022) [facility] Past [facility] Narrative* Problem Noted Date Resolved Date Meniere disease 09/04/2021 Overview: bilateral documented as of this encounter (statuses as of 07/14/2022) [facility] of Past [facility] Narrative* Problem Noted Date Resolved Date Meniere disease 09/04/2021 Overview: bilateral documented as of this encounter (statuses as of 09/12/2022) [facility] Narrative* Problem Noted Date Resolved Date Meniere disease 09/04/2021 Overview: bilateral documented as of this encounter (statuses as of 09/12/2022) [facility] Narrative* Problem Noted Date Resolved Date Meniere disease 09/04/2021 Overview: bilateral documented as of this encounter (statuses as of 09/25/2022) [facility] Narrative* Problem Noted Date Resolved Date Meniere disease 09/04/2021 Overview: bilateral documented as of this encounter (statuses as of 10/09/2022) [facility] Past [facility] Narrative* Problem Noted Date Resolved Date Meniere disease 09/04/2021 Overview: bilateral documented as of this encounter (statuses as of 03/05/2023) [facility] Narrative* Problem Noted Date Resolved Date Meniere disease 09/04/2021 Overview: bilateral documented as of this encounter (statuses as of 03/13/2023) [facility] Past [facility] Narrative* Problem Noted Date Diagnosed Date Resolved Date Meniere disease 09/04/2021 Overview: bilateral documented as of this encounter (statuses as of 04/25/2023) [facility] of Past [facility] Narrative* Problem Noted Date Diagnosed Date Resolved Date Meniere disease 09/04/2021 Overview: bilateral documented as of this encounter (statuses as of 05/22/2023) [facility] Past [facility] Narrative* Problem Noted Date Diagnosed Date Resolved Date Meniere disease 09/04/2021 Overview: bilateral documented as of this encounter (statuses as of 07/13/2023) [facility] of Past [facility] Narrative* Problem Noted Date Diagnosed Date Resolved Date Meniere disease 09/04/2021 Overview: bilateral documented as of this encounter (statuses as of 08/22/2023) [facility] of Past illness Narrative* Problem Noted Date Diagnosed Date Resolved Date Meniere disease 09/04/2021 Overview: bilateral documented as of this encounter (statuses as of 08/24/2023) [facility] Symptoms of urinary tract infection- Primary Other symptoms involving urinary system Frequent UTI Urinary tract infection, site not specified [facility] Primary osteoarthritis of right shoulder- Primary Primary localized osteoarthrosis, shoulder region Impingement syndrome of right shoulder Other affections of shoulder region, not elsewhere classified Arthritis of shoulder Unspecified arthropathy, shoulder region [facility] Diagnosis Chronic mixed headache syndrome Other headache syndromes Dizziness and giddiness Cervicalgia [facility] Diagnosis Encounter for screening mammogram for malignant neoplasm of breast- Primary Other screening mammogram [facility] Diagnosis Encounter for screening mammogram for malignant neoplasm of breast Other screening mammogram [facility] Diagnosis Skin lump of leg, left- Primary [facility] Diagnosis Chronic mixed headache syndrome Other headache syndromes Dizziness and giddiness Cervicalgia documented in this encounter [facility]* Diagnosis Chronic mixed headache syndrome Other headache syndromes Dizziness and giddiness Cervicalgia [facility] Diagnosis Skin lump of leg, left [facility] Diagnosis 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 [facility] Diagnosis COVID-19- Primary [facility] Diagnosis COVID-19 [facility] Diagnosis Dizziness- Primary Dizziness and giddiness Chronic mixed headache syndrome Other headache syndromes Cervicalgia History of cerebellar stroke documented in this encounter [facility] note* Diagnosis Dizziness- Primary Dizziness and giddiness Cervicalgia History of cerebellar stroke Nonintractable episodic headache, unspecified headache type History of stroke Transient ischemic attack (TIA), and cerebral infarction without residual deficits [facility] Diagnosis Dizziness Dizziness and giddiness [facility] Diagnosis Encounter for long-term (current) use of medications- Primary Encounter for long-term (current) use of other medications Dizziness Dizziness and giddiness [facility] Diagnosis Encounter for screening mammogram for breast cancer [facility] Diagnosis Dizziness- Primary Dizziness and giddiness Cervicalgia History of cerebellar stroke Nonintractable episodic headache, unspecified headache type documented in this encounter [facility] for referral (narrative)* Diagnostic Procedure Only (Routine) - Authorized Specialty Diagnoses / Procedures Referred By Contac t Referred To Contact [facility] Diagnoses Encounter for screening mammogram for malignant neoplasm of breast Procedures JAVON SCREENING SCREENING MAMMOGRAPHY BI 2-VIEW BREAST INC CAD Enmanuel Waldron APRN.CNP [address] [place] [address] [facility] [address] [place] [address] Referral ID Status Reason Start Date Expiration Date Visits Requested Visits Authorized [id number] Authorized Auto-Generat ed Referral 05/27/2022 06/26/2023 1 1 [facility] for referral (narrative)* Diagnostic Procedure Only (Routine) - Closed Specialty Diagnoses / Procedures Referred By Contac t Referred To Contact [facility] Diagnoses Encounter for screening mammogram for malignant neoplasm of breast Procedures JAVON SCREENING SCREENING MAMMOGRAPHY BI 2-VIEW BREAST INC [facility] Enmanuel Waldron APRN.HOME CARE ASSOCIATE [address] [place] [address] [facility] [address] [place] [address] Referral ID Status Reason Start Date Expiration Date V isits Requested Visits Authorized [id number] Closed Auto-Generate d Referral 05/27/2022 06/26/2023 1 1 [facility] for referral (narrative)* Diagnostic Procedure Only (Routine) - Authorized Specialty Diagnoses / Procedures Referred By Contac t Referred To Contact [facility] Diagnoses Skin lump of leg, left Procedures US EXTREMITY MASS/FLUID COLLECTION LT Enmanuel Waldron APRN.CNP [address] [place] [address] [facility] Referral ID Status Reason Start Date Expiration Date Visits Requested Visits Authorized [id number] Authorized Auto-Generat ed Referral 06/25/2022 07/25/2023 1 1 [facility] for referral (narrative)* Diagnostic Procedure Only (Routine) - Closed Specialty Diagnoses / Procedures Referred By Charli t Referred To Contact [facility] IMAGING Diagnoses Skin lump of leg, left Procedures US EXTREMITY MASS/FLUID COLLECTION LT Enmanuel Waldron, MP.HOME CARE ASSOCIATE [address] [place] [address] [facility] Referral ID Status Reason Start Date Expiration Date V isits Requested Visits Authorized [id number] Closed Auto-Generate d Referral 06/25/2022 07/25/2023 1 1 [facility] for referral (narrative)* Diagnostic Procedure Only (Routine) - Pending Review Specialty Diagnoses / Procedures Referred By Charli martines Referred To Contact [facility] Diagnoses Encounter for screening mammogram for breast cancer Procedures JAVON SCREENING SCREENING MAMMOGRAPHY BI 2-VIEW BREAST INC CAD Leonarda Liriano MD [address] [place] [address] [facility] [address] [place] [address] Referral ID Status Reason Start Date Expiration Date Visits Requested Visits Authorized [id number] Pending Review Auto-Generat ed Referral 08/06/2024 1 1 [facility] for visit Narrative* Diagnostic Procedure Only (Routine) - Closed Specialty Diagnoses / Procedures Referred By Charli t Referred To Contact [facility] Diagnoses Encounter for screening mammogram for malignant neoplasm of breast Procedures JAVON SCREENING SCREENING MAMMOGRAPHY BI 2-VIEW BREAST INC Enmanuel Reynolds APRN.HOME CARE ASSOCIATE [address] [place] [address] [facility] [address] [place] [address] Referral ID Status Reason Start Date Expiration Date V isits Requested Visits Authorized [id number] Closed Auto-Generate d Referral 05/27/2022 06/26/2023 1 1 [facility] for visit Narrative* Diagnostic Procedure Only (Routine) - Closed Specialty Diagnoses / Procedures Referred By Darrinac t Referred To Contact US IMAGING Diagnoses Skin lump of leg, left Procedures US EXTREMITY MASS/FLUID COLLECTION LT PodlogEnmanuel martin APRN.HOME CARE ASSOCIATE [address] [place] [address] [facility] Referral ID Status Reason Start Date Expiration Date V isits Requested Visits Authorized [id number] Closed Auto-Generate d Referral 06/25/2022 07/25/2023 1 1 [facility] Advance Directives No Advanced Directives Records FoundDocuments on File Type Date Recorded Patient Display Director Expl anation Advance Directive(s) 11/06/2021 7:18 AM Advance Directive(s) 10/30/2021 9:41 AM Documents on File Type Date Recorded Patient Display Director Expl anation Advance Directive(s) 11/06/2021 7:18 AM Advance Directive(s) 10/30/2021 9:41 AM Reason for Referral Specialty Diagnoses / Procedures Referred By Contac t Referred To Contact Urology Diagnoses Frequent UTI Procedures CONSULT TO UROLOGY OFFICE/OUTPATIENT [facility] 60-74 MINUTES Pod[employer], MP Mcmullen.HOME CARE ASSOCIATE [address] [place] [address] Referral ID Status Reason Start Date Expiration Date Visits Requested Visits Authorized [id number] Pending Review PCP Requested Referral 12/30/2021 12/30/2022 1 1 Medications Administered Section Inactive Administered Medications - up to 3 most recent administrations Medication Order MAR Action Action Date Dose Rate Site ropivacaine (PF) 5 mg/mL (0.5 %) 3 mL injection (NAROPIN) 3 mL, Injection - FOR ORTHO USE ONLY, ONE TIME INJECTION, 1 dose, Starting on Thu02/19/22 at 1433, Until Thu02/19/22 at 1433 Given 02/19/2022 2:33 PM EDT 3 mL triamcinolone acetonide 40 mg injection (KeNALog 40) 40 mg, Injection - FOR ORTHO USE ONLY, ONE TIME INJECTION, 1 dose, Starting on Thu02/19/22 at 1433, Until Thu02/19/22 at 1433 Given 02/19/2022 2:33 PM EDT 40 mg Summary Purpose Family History No Family History Records FoundNo Family History Records Found Additional Source Comments Source Comments (unrecognize d section and content) In the event this informatio n is protected by the Federal Confidentiality of Alcohol and Drug Abuse Patient Records regulations: The Federal rules restrict any use of the information to criminally investigate or prosecute any alcohol or drug abuse patient.[facility] event this information is protected by the Federal Confidentiality of Alcohol and Drug Abuse Patient Records regulations: The Federal rules restrict any use of the information to criminally investigate or prosecute any alcohol or drug abuse patient.[facility] the event this information is protected by the Federal Confidentiality of Alcohol and Drug Abuse Patient Records regulations: The Federal rules restrict any use of the information to criminally investigate or prosecute any alcohol or drug abuse patient.[facility] the event this information is protected by the Federal Confidentiality of Alcohol and Drug Abuse Patient Records regulations: The Federal rules restrict any use of the information to criminally investigate or prosecute any alcohol or drug abuse patient.[facility] the event this information is protected by the Federal Confidentiality of Alcohol and Drug Abuse Patient Records regulations: The Federal rules restrict any use of the information to criminally investigate or prosecute any alcohol or drug abuse patient.[facility] the event this information is protected by the Federal Confidentiality of Alcohol and Drug Abuse Patient Records regulations: The Federal rules restrict any use of the information to criminally investigate or prosecute any alcohol or drug abuse patient.[facility] the event this information is protected by the Federal Confidentiality of Alcohol and Drug Abuse Patient Records regulations: The Federal rules restrict any use of the information to criminally investigate or prosecute any alcohol or drug abuse patient.[facility] the event this information is protected by the Federal Confidentiality of Alcohol and Drug Abuse Patient Records regulations: The Federal rules restrict any use of the information to criminally investigate or prosecute any alcohol or drug abuse patient.[facility] the event this information is protected by the Federal Confidentiality of Alcohol and Drug Abuse Patient Records regulations: The Federal rules restrict any use of the information to criminally investigate or prosecute any alcohol or drug abuse patient.[facility] the event this information is protected by the Federal Confidentiality of Alcohol and Drug Abuse Patient Records regulations: The Federal rules restrict any use of the information to criminally investigate or prosecute any alcohol or drug abuse patient.[facility] the event this information is protected by the Federal Confidentiality of Alcohol and Drug Abuse Patient Records regulations: The Federal rules restrict any use of the information to criminally investigate or prosecute any alcohol or drug abuse patient.[facility] the event this information is protected by the Federal Confidentiality of Alcohol and Drug Abuse Patient Records regulations: The Federal rules restrict any use of the information to criminally investigate or prosecute any alcohol or drug abuse patient.[facility] the event this information is protected by the Federal Confidentiality of Alcohol and Drug Abuse Patient Records regulations: The Federal rules restrict any use of the information to criminally investigate or prosecute any alcohol or drug abuse patient.[facility] the event this information is protected by the Federal Confidentiality of Alcohol and Drug Abuse Patient Records regulations: The Federal rules restrict any use of the information to criminally investigate or prosecute any alcohol or drug abuse patient.[facility] the event this information is protected by the Federal Confidentiality of Alcohol and Drug Abuse Patient Records regulations: The Federal rules restrict any use of the information to criminally investigate or prosecute any alcohol or drug abuse patient.[facility] the event this information is protected by the Federal Confidentiality of Alcohol and Drug Abuse Patient Records regulations: The Federal rules restrict any use of the information to criminally investigate or prosecute any alcohol or drug abuse patient.[facility] the event this information is protected by the Federal Confidentiality of Alcohol and Drug Abuse Patient Records regulations: The Federal rules restrict any use of the information to criminally investigate or prosecute any alcohol or drug abuse patient.[facility] the event this information is protected by the Federal Confidentiality of Alcohol and Drug Abuse Patient Records regulations: The Federal rules restrict any use of the information to criminally investigate or prosecute any alcohol or drug abuse patient.[facility] the event this information is protected by the Federal Confidentiality of Alcohol and Drug Abuse Patient Records regulations: The Federal rules restrict any use of the information to criminally investigate or prosecute any alcohol or drug abuse patient.[facility] the event this information is protected by the Federal Confidentiality of Alcohol and Drug Abuse Patient Records regulations: The Federal rules restrict any use of the information to criminally investigate or prosecute any alcohol or drug abuse patient.[facility] the event this information is protected by the Federal Confidentiality of Alcohol and Drug Abuse Patient Records regulations: The Federal rules restrict any use of the information to criminally investigate or prosecute any alcohol or drug abuse patient.[facility] the event this information is protected by the Federal Confidentiality of Alcohol and Drug Abuse Patient Records regulations: The Federal rules restrict any use of the information to criminally investigate or prosecute any alcohol or drug abuse patient.[facility] the event this information is protected by the Federal Confidentiality of Alcohol and Drug Abuse Patient Records regulations: The Federal rules restrict any use of the information to criminally investigate or prosecute any alcohol or drug abuse patient.[facility] the event this information is protected by the Federal Confidentiality of Alcohol and Drug Abuse Patient Records regulations: The Federal rules restrict any use of the information to criminally investigate or prosecute any alcohol or drug abuse patient.[facility] the event this information is protected by the Federal Confidentiality of Alcohol and Drug Abuse Patient Records regulations: The Federal rules restrict any use of the information to criminally investigate or prosecute any alcohol or drug abuse patient.[facility] HospitalIn the event this information is protected by the Federal Confidentiality of Alcohol and Drug Abuse Patient Records regulations: The Federal rules restrict any use of the information to criminally investigate or prosecute any alcohol or drug abuse patient.[facility] the event this information is protected by the Federal Confidentiality of Alcohol and Drug Abuse Patient Records regulations: The Federal rules restrict any use of the information to criminally investigate or prosecute any alcohol or drug abuse patient.[facility] Care Teams (unrecognized sec tion and content) 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 Start Date End Date Leonarda Liriano MD [address] [facility] [place] [address] PCP - General Family Practice 11/08/18 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 Start Date End Date Leonarda Liriano MD [address] [place] [place] [address] PCP - General Family Practice 11/08/18 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 Start Date End Date Leonarda Liriano MD [facility] [place] [place] [address] PCP - General Family Practice 11/08/18 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 Start Date End Date Leonarda Liriano MD [facility] [place] [place] [address] PCP - General Family Practice 11/08/18 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 Start Date End Date Leonarda Liriano MD [facility] [place] [address] PCP - General Family Practice 11/08/18 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 Start Date End Date Leonarda Liriano MD [facility] [place] [address] PCP - General Family Practice 11/08/18 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 Start Date End Date Leonarda Liriano MD [address] [place] [place] [address] PCP - General Family Practice 11/08/18 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 Start Date End Date Leonarda Liriano MD [facility] [place] [place] [address] PCP - General Family Practice 11/08/18 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 Start Date End Date Leonarda Liriano MD [address] [facility] [place] [address] PCP - General Family Medicine 11/08/18 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 Start Date End Date Leonarda Liriano MD [address] [place] [place] [address] PCP - General Family Medicine 11/08/18 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 Start Date End Date Leonarda Liriano MD [address] [place] [place] [address] PCP - General Family Medicine 11/08/18 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 Start Date End Date Leonarda Liriano MD [address] [place] [place] [address] PCP - General Family Medicine 11/08/18 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 Start Date End Date Leonarda Liriano MD [address] [place] [place] [address] PCP - General Family Medicine 11/08/18 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 Start Date End Date Leonarda Liriano MD [address] [place] [place] [address] PCP - General Family Medicine 11/08/18 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 Start Date End Date Leonarda Liriano MD [address] [place] [address] PCP - General Family Medicine 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/18 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 Start Date End Date Leonarda Liriano MD [address] [place] [address] PCP - General Family Medicine 11/08/18 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 Start Date End Date Leonarda Liriano MD [address] [place] [address] PCP - General Family Medicine 11/08/18 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 Start Date End Date Leonarda Liriano MD [address] [place] [address] PCP - General Family Medicine 11/08/18 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 Start Date End Date Leonarda Liriano MD [address] [facility] [place], [place] [address] [phone] PCP - General Family Medicine 11/08/18 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 Start Date End Date Leonarda Liriano MD [address] [facility] [place], [place] [address] [phone] PCP - General Family Medicine 11/08/18 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 Start Date End Date Leonarda Liriano MD [address] [facility] [place], [place] [id number] [phone] PCP - General Family Medicine 11/08/18 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 Start Date End Date Leonarda Liriano MD [address] [facility] [place], [place] [address] PCP - General Family Medicine 11/08/18 Reason for Visit (unrecogniz ed section and content) Reason Comments New Pain Reason Comments Refill Request Reason Onset Date Comments Refill Request 04/12/2022 Reason Comments Appointment Reason Comments Derm Problem Lump on left lower l eg x3-4 days; pain in the area x3 weeks Reason Onset Date Comments Refill Request 06/23/2022 Reason Onset Date Comments Refill Request 06/25/2022 Reason Comments Results Reason Comments Anxiety Pre flight anxiety; upcoming flight Reason Comments Cough Reason Comments Neurologic Problem Vertigo Reason Onset Date Comments Refill Request 10/08/2022 Reason Comments Follow Up Reason Onset Date Comments Population Health Navigation Outreach 03/13/2023 [employer] Gaps 5.30.23 Reason Onset Date Comments Refill Request 04/23/2023 Reason Onset Date Comments Refill Request 05/21/2023 Reason Comments Follow Up Pt reported improved Sanchez, decreased to approximately 6 per month. INFORMATION SOURCE (unrecogn ized section and content) DATE CREATED AUTHOR AUTHOR'S JOANA PASTRANA 08/24/2023 [facility] FOR RECORDS PERTAINING TO PATIENTS WHO ARE OR HAVE BEEN ENROLLED IN A CHEMICAL DEPENDENCY/SUBSTANCEABUSE PROGRAM, SOME INFORMATION MAY BE OMITTED. This clinical summary was aggregated from multiple sources. Caution should be exercised in using it in the provision of clinical care. This summary normalizes information from multiple sources, and as a consequence, information in this document may materially change the coding, format and clinical context of patient data. In addition, data may be omitted in some cases. CLINICAL DECISIONS SHOULD BE BASED ON THE PRIMARY CLINICAL RECORDS. [employer] provides no warranty or guarantee of the accuracy or completeness of information in this document.
[2023-10-01 12:19] LABS: Absolute Lymphocyte Count 1.71 X10^3/uL (0.83-4.51); Absolute Neutrophil Count 3.7 X10^3/uL (2.0-7.7); Basophil# 0.05 X10^3/uL; Basophil% 0.8 % (0-1); Eosinophil# 0.19 X10^3/uL; Eosinophils% 3.1 % (0-5); Hematocrit 40.6 % (37-47); Hemoglobin 12.9 g/dL (12.0-15.0); Lymphocyte # 1.71 X10^3/ul (0.83-4.51); Lymphocyte % 28.3 % (19-41); Mean Corp Hgb Conc 31.8 g/dL (32-36); Mean Corpuscular Hgb 26.5 pg (27.0-32.0); Mean Corpuscular Volume 83.4 fL (81-99); Mean Platelet Vol. 11.6 fl (6.2-12.0); Monocyte# 0.43 X10^3/uL; Monocyte% 7.1 % (0-10); NRBC Flagged by Analyzer 0 % (0-5); Neutrophil # 3.65 X10^3/uL (2.7-7.7); Neutrophil % 60.5 % (47-70); Platelet Count 268 K/mm3 (150-450); RBC Distribution Width CV 14.6 % (11.6-14.6); RBC Distribution Width SD 44.5 fl (35.1-43.9); Red Blood Count 4.87 M/mm3 (4.2-5.4)
[2023-10-01 13:19] LABS: ALB/GLOB Ratio 1.3 RATIO (0.9-2.4); AST(SGOT) 20 U/L (15-37); Alanine Aminotransfer ALT/SGPT 18 U/L (13-56); Albumin, Serum 3.8 g/dL (3.2-5.0); Alkaline Phosphatase 68 U/L (45-117); Anion Gap 5 (5-15); BUN 13 mg/dL (7-18); BUN/Creat Ratio 18.4 RATIO (10-20); Calcium,Total 9.1 mg/dL (8.5-10.1); Chloride 108 mmol/L (98-107); Cholesterol 142 mg/dL (200); EST Glomerular Filtration Rate 87 mL/min (>60); Est Glom Filt Rate - Afr Amer 105 mL/min (>60); Glucose 92 mg/dL (74-106); High Density Lipoprotein 54 mg/dL; Potassium 4.3 mmol/L (3.5-5.1); Protein, Total 6.8 g/dL (6.4-8.2); Sodium Level 139 mmol/L (136-145); Triglycerides 79 mg/dL; Very Low Density Lipoprotein 16 mg/dL (5-40)
[2023-10-01 14:27] LABS: Hemoglobin A1c 5.6 % (3.8-5.6)
== END | disposition home or self-care (01) ==
LOC: BIMLAB 10:31
PROVIDERS: PCP Internal Medicine; Referring Provider Internal Medicine; Visit Provider Internal Medicine
DX: E78.2 Mixed hyperlipidemia (principal); N32.81 Overactive bladder; R73.03 Prediabetes; M85.80 Other specified disorders of bone density and structure, unspecified site
CPT/HCPCS: 36415; 80053; 80061; 83036; 85025

== ENCOUNTER → 2023-10-08 | Outpatient (CLI) | payer MEDICARE, SELFPAY ==
--- NOTE | 2023-10-08 14:11 | BI_ITS ---
MAMMOGRAPHY - BILATERAL SCREENING REASON FOR EXAM: Female, 73 years old. Routine annual screening examination. PERTINENT HISTORY: Aunt with breast cancer. TECHNIQUE: Digital bilateral breast santhosh (3D mammographic acquisition) in the CC and MLO projections. 2-D mediolateral oblique (MLO) and craniocaudad (CC) views of both breasts were obtained. CAD: Full Field Digital Mammography with Computer Added Detection was performed. COMPARISON: Comparison is made with prior examination dated September 24, 2018 and prior outside examination dated May 28, 2022. FINDINGS: Breast Composition: There are scattered areas of fibroglandular density. There are no dominant masses or suspicious calcifications. Stable small benign-appearing bilateral axillary lymph nodes. No other significant abnormalities are identified. There has been no significant change since the prior study. BI/SCRN MAMM (CAD)W/SANTHOSH BILAT IMPRESSION: Stable bilateral screening mammogram. Yearly follow-up mammogram recommended. (A) ASSESSMENT CATEGORY: BIRADS Category 2: Benign. A letter regarding these results will be sent to the patient by the facility within 30 days. Approximately 10% of breast cancers are not detected by mammography. A normal mammogram should not delay biopsy of a clinically suspicious abnormality. [id number] Electronically Signed: Elieser Gonzalez MD at 10:00 EST ,
--- OUTSIDE RECORDS SUMMARY | 2023-10-08 14:33 | XMS RPT_ITS | CCD ---
Author Name Unknown Address [address] [place] [address] Organization [facility] Care Team Providers Care Yard Jockey Name Role Phone Leonarda Liriano MD Primary [...] kg Rafy Tucker Jr., MD Work Phone: [facility] 08-21-2023 13:59-0500 Diastolic blood pressure 72 mm[Hg] Rafy Tucker Jr., MD Work Phone: [facility] 08-21-2023 13:59-0500 Heart rate 78 /min Rafy Tucker Jr., MD Work Phone: [facility] 08-21-2023 13:59-0500 Respiratory rate 16 /min Rafy Tucker Jr., MD Work Phone: [facility] 08-21-2023 13:59-0500 SaO2% (BldA) [Mass fraction] 97 % Rafy Tucker Jr., MD Work Phone: [facility] 08-21-2023 13:59-0500 Systolic blood pressure 126 mm[Hg] Rafy Tucker Jr., MD Work Phone: [facility] 03-04-2023 16:02-0400 Body temperature 97.5 [degF] Kasey Hirsch PA-C Work Phone: [facility] 03-04-2023 16:02-0400 Body weight 65 kg Kasey Hirsch PA-C Work Phone: [facility] 03-04-2023 16:02-0400 Diastolic blood pressure 73 mm[Hg] Kasey CARPIO-Yobany Work Phone: [facility] 03-04-2023 16:02-0400 Heart rate 69 /min Kasey Hirsch PA-C Work Phone: [facility] 03-04-2023 16:02-0400 Respiratory rate 18 /min Kaseyelma Cruzer PA-C Work Phone: [facility] 03-04-2023 16:02-0400 SaO2% (BldA) [Mass fraction] 96 % Kaseyelma Cruzer PA-C Work Phone: [facility] 03-04-2023 16:02-0400 Systolic blood pressure 119 mm[Hg] Kasey er PA-C Work Phone: [facility] 09-23-2022 12:05-0500 Body temperature 98.01 [degF] Mellisa Graveshl PA-C Work Phone: [facility] 09-23-2022 12:05-0500 Body weight 64.95 kg Mellisa Graveshl PA-C Work Phone: [facility] 09-23-2022 12:05-0500 Diastolic blood pressure 84 mm[Hg] Mellisa Graveshl PA-C Work Phone: [facility] 09-23-2022 12:05-0500 Heart rate 68 /min Mellisa Hernandezfahl PA-C Work Phone: [facility] 09-23-2022 12:05-0500 Respiratory rate 18 /min Mellisa Hernandezfahl PA-C Work Phone: [facility] 09-23-2022 12:05-0500 SaO2% (BldA) [Mass fraction] 100 % Mellisa Graveshl PA-C Work Phone: [facility] 09-23-2022 12:05-0500 Systolic blood pressure 132 mm[Hg] Mellisa Graveshl PA-C Work Phone: [facility] 07-14-2022 12:37-0400 Body weight 64.23 kg Enmanuel Waldron APRN.TILE PRESSER Work Phone: [facility] 07-14-2022 12:37-0400 Diastolic blood pressure 78 mm[Hg] Enmanuel Waldron APRN.TILE PRESSER Work Phone: [facility] 07-14-2022 12:37-0400 Heart rate 75 /min Enmanuel Podlogar GRINDER MACHINE SETTER.TILE PRESSER Work Phone: [facility] 07-14-2022 12:37-0400 Respiratory rate 18 /min Enmanuel Podlogar GRINDER MACHINE SETTER.TILE PRESSER Work Phone: [facility] 07-14-2022 12:37-0400 SaO2% (BldA) [Mass fraction] 95 % Enmanuel Podlogar GRINDER MACHINE SETTER.TILE PRESSER Work Phone: [facility] 07-14-2022 12:37-0400 Systolic blood pressure 130 mm[Hg] Enmanuel Podlogar GRINDER MACHINE SETTER.TILE PRESSER Work Phone: [facility] 06-25-2022 09:45-0400 Body temperature 98.71 [degF] Enmanuel Podlogar GRINDER MACHINE SETTER.TILE PRESSER Work Phone: [facility] 06-25-2022 09:45-0400 Body weight 63.59 kg Enmanuel Podlogar GRINDER MACHINE SETTER.TILE PRESSER Work Phone: [facility] 06-25-2022 09:45-0400 Diastolic blood pressure 84 mm[Hg] Enmanuel Podlogar GRINDER MACHINE SETTER.TILE PRESSER Work Phone: [facility] 06-25-2022 09:45-0400 Heart rate 68 /min Enmanuel Podlogar GRINDER MACHINE SETTER.TILE PRESSER Work Phone: [facility] 06-25-2022 09:45-0400 Respiratory rate 16 /min Enmanuel Podlogar GRINDER MACHINE SETTER.TILE PRESSER Work Phone: [facility] 06-25-2022 09:45-0400 SaO2% (BldA) [Mass fraction] 98 % Enmanuel Podlogar GRINDER MACHINE SETTER.TILE PRESSER Work Phone: [facility] 06-25-2022 09:45-0400 Systolic blood pressure 138 mm[Hg] Enmanuel Podlogar GRINDER MACHINE SETTER.TILE PRESSER Work Phone: [facility] 12-30-2021 13:02-0400 Body weight 64.14 kg Enmanuel Podlogar GRINDER MACHINE SETTER.TILE PRESSER Work Phone: [facility] 12-30-2021 13:02-0400 Diastolic blood pressure 82 mm[Hg] Enmanuel Podlogar GRINDER MACHINE SETTER.TILE PRESSER Work Phone: [facility] 12-30-2021 13:02-0400 Heart rate 62 /min Enmanuel Podlogar GRINDER MACHINE SETTER.TILE PRESSER Work Phone: [facility] 12-30-2021 13:02-0400 Respiratory rate 18 /min Enmanuel Podlogar GRINDER MACHINE SETTER.TILE PRESSER Work Phone: [facility] 12-30-2021 13:02-0400 SaO2% (BldA) [Mass fraction] 99 % Enmanuel Podlogar GRINDER MACHINE SETTER.TILE PRESSER Work Phone: [facility] 12-30-2021 13:02-0400 Systolic blood pressure 130 mm[Hg] Enmanuel Podlogar GRINDER MACHINE SETTER.TILE PRESSER Work Phone: [facility] Encounters Encounter Date Encounter Type Care Provider Facility Start: 08-22-2023 ambulatory Rafy horn MD Work Phone: Neurology Procedures Date Procedure Procedure Detail Performing Clinician Start: 10-06-2022 Lipid 1996 panel - S lissy or Plasma Leonarda Liriano MD Work Phone: Start: 05-28-2022 End: 05-28-2022 Screening mammography bi 2-view breast inc cad Enmanuel Podlogar GRINDER MACHINE SETTER.TILE PRESSER Work Phone: Start: 02-19-2022 End: 02-19-2022 Arthrocentesis aspir&/inj major jerryt/chitra w/us Damien Carrillo DO Work Phone: Start: 12-30-2021 Urnls dip stick/tabl et rgnt auto w/o microscopy Enmanuel Podlogar GRINDER MACHINE SETTER.TILE PRESSER Work Phone: Start: 11-06-2021 Colonoscopy Gareth deal MD Work Phone: Start: 06-17-2021 Mammography Gareth deal MD Work Phone: Start: 04-09-2021 Adult depression scr eening assessment Gareth Koehler MD Work Phone: Plan of Treatment Date Care Activity Detail Author Start: 11-08-2028 Urine microalbumin profile [facility] Start: 10-06-2027 Lipid 1996 panel - Serum or Plasma Lipid Screening [facility] Start: 10-06-2027 LIPID SCREEN LIPID SCREEN [facility] Start: 11-06-2026 Colonoscopy COLONOSCOPY [facility] Start: 11-06-2026 COLORECTAL CANCER SCREENING COLORECTAL CANCER SCREENING [facility] Start: 09-03-2026 LIPID SCREEN LIPID SCREEN [facility] Start: 10-06-2025 DIABETES SCREEN DIABETES SCREEN [facility] Start: 10-06-2025 Diabetes Screening Diabetes Screening [facility] Start: 09-03-2024 DIABETES SCREEN DIABETES SCREEN [facility] Start: 05-28-2023 Mammography [facility] Start: 05-22-2023 End: 07-22-2023 CBC panel - Blood by Automated count CBC Lab Routine Encounter for long-term (current) use of medications Expected: 05/22/2023, Expires: 07/22/2023 [facility] Work Phone: Immunizations Immunization Date Immunization Notes [facility] Provider [facility]2022 influenza virus vacc ine, unspecified formulation Leonarda Liriano MD Work Phone: [facility] 12-18-2020 COVID-19 vaccine, fu ll dose (MODERNA) Gareth Koehler MD Work Phone: [facility] 11-20-2020 COVID-19 vaccine, fu ll dose (MODERNA) Gareth Koehler MD Work Phone: [facility] 08-22-2020 zoster vaccine recombinant Gareth Koehler MD Work Phone: [facility] 05-08-2020 influenza, injectabl e, quadrivalent, preservative free Gareth Koehler MD Work Phone: [facility] 05-08-2020 pneumococcal conjuga te vaccine, 13 valent Gareth Koehler MD Work Phone: [facility] 05-08-2020 zoster vaccine recombinant Gareth Koehler MD Work Phone: [facility] 06-24-2019 Seasonal trivalent influenza vaccine, adjuvanted, preservative free Gareth Koehler MD Work Phone: [facility] 11-08-2018 pneumococcal polysaccharide vaccine, 23 valent Gareth Koehler MD Work Phone: [facility] 06-15-2018 influenza, high dose seasonal, preservative-free Gareth Koehler MD Work Phone: [facility] 06-10-2017 influenza, injectabl e, quadrivalent, preservative free Gareth Koehler MD Work Phone: [facility] 05-13-2017 tetanus toxoid, redu aditi diphtheria toxoid, and acellular pertussis vaccine, adsorbed Gareth Koehelr MD Work Phone: [facility] 07-31-2016 pneumococcal conjuga te vaccine, 13 valent Gareth Koehler MD Work Phone: [facility] 07-02-2016 influenza, seasonal, injectable, preservative free Gareth Koehler MD Work Phone: [facility] 06-26-2015 influenza, injectabl e, quadrivalent, contains preservative Gareth Koehler MD Work Phone: [facility] 05-25-1997 hepatitis B vaccine, adult dosage Gareth Koehler MD Work Phone: [facility] 12-20-1996 hepatitis B vaccine, adult dosage Gareth Koehler MD Work Phone: [facility] 11-14-1996 hepatitis B vaccine, adult dosage Gareth Koehler MD Work Phone: [facility] Payers Date Payer Category Payer Medicare AETNA MEDICARE A ETNA MEDICARE PPO [id number] 2021-Present [phone] [address] [place] [address] PPO [id number] 2021 Medicare AETNA MEDICARE A ETNA MEDICARE PPO [id number] 2021-Present [phone] [address] [place] [address] [facility] [id number] 2021 Medicare [id number] Social History Date Type Detail Facility Start: 11-08-2018 End: 06-25-2022 Tobacco smoking status NHIS Never smoked tobacco [facility] Start: 11-08-2018 End: 06-25-2022 Tobacco use and exposure Smokeless tobacco non-user [facility] Start: 11-06-2021 End: 08-21-2023 Alcohol intake Current drinker of alcohol (finding) [facility] Start: 04-09-2021 End: 09-11-2022 History SDOH Alcohol Frequency 2 [facility] Start: 04-09-2021 End: 09-11-2022 History SDOH Alcohol Std Drinks 1 [facility] Start: 11-08-2018 History SDOH Alcohol Comment 1 drink every 2 weeks [facility] Start: 04-09-2021 End: 09-11-2022 History SDOH Social Connections Phone 5 [facility] Start: 04-09-2021 End: 09-11-2022 History SDOH Social Connections Get Together 3 [facility] Start: 04-09-2021 History SDOH Physica l Activity DPW 6 [facility] Start: 04-09-2021 Education 17 [facility] Start: 1950 Sex Assigned At Not on file C [facility] Start: 05-18-2022 End: 06-26-2022 Exposure to SARS-CoV-2 (event) Not sure [facility] Start: 09-11-2022 History SDOH Social Connections Phone 4 [facility] Start: 09-11-2022 History SDOH Social Connections Meetings 98 [facility] Start: 09-11-2022 End: 03-04-2023 History of Social function [facility] Start: 09-11-2022 End: 03-04-2023 Social connection and isolation panel [facility] Do you belong to any clubs or organizations such as jew groups, unions, fraternal or athletic groups, or school groups? No [facility] How often do you att end meetings of the clubs or organizations you belong to? Patient refused [facility] Are you now , , , , never or living with a partner? [facility] How many standard dr inks containing alcohol do you have on a typical day? 1 or 2 [facility] How often do you hav e 6 or more drinks on 1 occasion? Never [facility] Do you feel stress - tense, restless, nervous, or anxious, or unable to sleep at night because your mind is troubled all the time - these days [OSQ] Only a little [facility] (I/We) worried wheth er (my/our) food would run out before (I/we) got money to buy more. Never true [facility] Start: 07-23-2020 Gender identity Identifies as female gender (finding) [facility] Start: 07-23-2020 Sexual orientation Heterosexual (marsha estes) [facility] Clinical Notes 09-04-2021 to 08-21-2023 Rafy Tucker Jr., MD - 08/21/2023 2:01 PM Ruthie Yeager LPN - 08/21/2023 1:55 PM ESTTelephone Encounter - Kasey Hirsch PA-C - 05/22/2023 9:02 AM EDTPatient Instructions Note Date & Type Note Facility 08-21-2023 Note HNO ID: [id number] Author: Rafy Tucker Jr., MD Service: ? [...] Value 09/03/2021 4.5 (more content not included)... [facility] 08-21-2023 Note HNO ID: [id number] Author: Ruthie Clemente LPN Service: ? Author [...] no data to display for this encounter [facility] 08-21-2023 History of Present illness Narrative 08/20/2023 [...] for this encounter documented in this encounter [facility] 07-08-2023 Note Patient Outreach (IN TMMN) MARK MELCHOR ([id number]) 1950 F Date Time Provider Department 07/08/23 LEONARDA LIRIANO During your visit today, we recorded the following information about you: Allergies As of Date: 07/08/2023 (No Known Allergies) Date Reviewed: 04/24/2023 Reviewed by: Ceci Jacob APRN.TILE PRESSER - Fully Assessed Visit Diagnosis:Encounter for screening mammogram for breast cancer [Z12.31] Order(s):[facility] SCREENING [[id number]] Order #: [id number] FUTURE Prescriptions as of 07/13/2023 - pregabalin [...] Encounter Status:Closed by JESSICA JOHNSONUSEKae on 07/13/23 [facility] 05-22-2023 Miscellaneous Notes Refill sent, will need basic blood work and these have been ordered. [facility] website checked and validated. All prescriptions have [...] neuro for patient? Scheduled to see Dr Tcuker 08/21/23 EBONY Hirsch 03/04/23 Brii Blas LPN documented in this encounter [facility] 04-24-2023 Miscellaneous Notes PDMP website checked and validated. All prescriptions have been APPROPRIATELY filled. No suspicious activity was identified. April 24, 2023 Ceci Jacob APRN.TILE PRESSER EBONY 03/04/23 with MQ NOV 08/21/23 with [...] Kasey Hirsch PA-C documented in this encounter [facility] 03-18-2023 Note HNO ID: [id number] Author: Zulma Moran MA Service: ? Author Type: Hand Violin Maker Type: Progress Notes Filed: 03/18/2023 1:47 PM [...] Moran MA March 18, 2023 1:43 PM [facility] 03-13-2023 Note Patient Outreach (ARMANDO TNAV) MARK MELCHOR ([id number]) 1950 F Date Time Provider Department 03/13/23 [...] Encounter Status:Closed by ZULMA MORAN on 03/13/23 [facility] 03-13-2023 Note HNO ID: [id number] Author: Zulma Moran MA Service: ? Author Type: Hand Violin Maker Type: Progress Notes Filed: 03/13/2023 2:57 PM [...] Moran MA March 13, 2023 8:50 AM [facility] 03-13-2023 History of Present illness Narrative POPULATION HEALTH NAVIGATION OUTREACH Action/ [facility] Care Gaps 02.17. Discuss/Due for: Medicare Wellness [...] 2023 8:50 AM documented in this encounter [facility] 03-04-2023 Note HNO ID: [id number] Author: Kasey Hirsch PA-C Service: ? Author Type: Physician Research Statistician Type: Progress Notes Filed: 03/04/2023 4:33 PM [...] aspirin. States that her daughter is a beck tender and states that you cannot put dogs on aspirin and meloxicam at the same time and was wondering if this was okay for her. No bleeding, no falls. REVIEW OF (more content not included)... [facility] 03-04-2023 History of Present illness Narrative ESTABLISHED [...] aspirin. States that her daughter is a beck tender and states that you cannot put dogs [...] dysarthria; comprehension, naming, repetition intact. Short and rat exterminator memory intact. CN: PERRL, EOMI and without [...] which included preparing to see the patient, jrqe-jj-ippa patient care, completing clinical documentation, obtaining and/or reviewing separately obtained history, performing a medically appropriate examination, and counseling and educating the patient/family/caregiver. This document has been created with the use of voice recognition technology. It may contain inaccuracies: (e.g. misspellings, inaccurate syntax or word sense) that have escaped review. documented in this encounter [facility] 10-09-2022 Miscellaneous Notes Patient has been [...] Last refill: 03/2022 documented in this encounter [facility] 09-23-2022 Note HNO ID: [id number] Author: Mellisa Garcia PA-C Service: ? Author Type: Physician Research Statistician Type: Progress Notes Filed: 09/23/2022 8:15 PM Note Text: [facility] Name: Mark Melchor Age: [...] 89 04/16/2020 Lab (more content not included)... [facility] 09-23-2022 Instructions Mellisa Garcia PA-C - 09/23/2022 [...] less than 7 documented in this encounter [facility] 09-23-2022 History of Present illness Narrative Images from the original note were not included. [facility] Name: Mark Melchor Age: [...] which included preparing to see the patient, jgri-ac-eynl patient care, completing clinical documentation, obtaining and/or reviewing separately obtained history, performing a medically appropriate examination, counseling and educating the patient/family/caregiver and ordering medications, tests, or procedures. No orders of the defined types were placed in this encounter. No follow-ups on file. This note was dictated using [employer] speech recognition software and may contain some [...] 06/24/2022 Score 4 documented in this encounter [facility] 09-11-2022 Note HNO ID: [id number] Author: Divina Woo APRN.TILE PRESSER Service: ? Author Type: Nurse Practitioner Type: Progress Notes Filed: 09/11/2022 3:12 PM Note Text: VIRTUAL VISIT PROGRESS NOTE This is a virtual visit using MaxTraffic video visit. It required patient-provider interaction for [...] which included preparing to see the patient, llyh-ql-sghr patient care, completing clinical documentation, obtaining and/or reviewing separately obtained history, performing a medically appropriate examination, counseling and educating the patient/family/caregiver, ordering medications, tests, or procedures, communicating results to the patient/family/caregiver, and care coordination (not separately reported) Molnupiravir Eligibility and Patient Discussion [facility] Formulary Restriction Criteria: Adult outpatients 18 [...] Positive Test:09/11/2022 Date (more content not included)... [facility] 09-11-2022 Miscellaneous Notes I have sent this medication to [facility]. documented in this encounter [facility] 09-11-2022 Instructions Divina Woo APRN.CNP - [...] healthcare provider to share your information with [email or web address], then your healthcare provider will report your use of molnupiravir during to [employer]. by calling or Pregnancyreporting.Fieldbook. For individuals who are sexually active with [...] molnupiravir for the treatment of adults with wmze-uu-msvtedzw coronavirus disease 2019 (COVID-19) with positive results [...] virus. COVID-19 illnesses have ranged from very okau-pp-kxdruk, including illness resulting in . While information [...] is an investigational medicine used to treat fyxk-ve-ummrhvnp COVID-19 in adults: with positive results of [...] serious illnesses Are taking any medicines (prescription, jqvg-xiq-gqrspjc, vitamins, or herbal products). How do I [...] treat people with COVID-19. Go to https://www.fda.gov/emergency-pre vmbkttiug-fuv-ajbnqsgb/mcm-legalr jewlkymwf-doh-rsfwfp-framework/em rvhtcst-hpf-hpksxfrdgkkwj for more information. It is your choice [...] to FDA MedWatch at www.fda.gov/medwatch or call 5-452-VAR-4138 ( ). How should I store molnupiravir? Store molnupiravir capsules at room temperature between 68 F to 77 F (20 C to 25 C). Keep molnupiravir and all medicines out of the reach of children and pets. How can I learn more about COVID-19? Ask your healthcare provider. Visit www.cdc.gov/COVID19 Contact your local or state public health department. Call [employer] at (toll free in the [place] Visit wwwSkinkers What Is an Emergency Use Authorization (EUA)? The [place] FDA has made molnupiravir available under an emergency access mechanism called an Emergency Use Authorization (EUA) The EUA is supported by a [employer] Professor of Health and Human Service (HHS) declaration that circumstances exist to justify emergency use of drugs and biological products during the COVID-19 pandemic. Molnupiravir for the treatment of hcnh-ek-qvkrycoa COVID-19 in adults with positive results of [...] used under the EUA). For patent information: www.[employer]ascular [employer]s/research/patent Copyright 2020 [employer] [place] and its affiliates. All rights reserved. [id number] Issued: 09/12/2021 documented in this encounter [facility] 09-11-2022 History of Present illness Narrative VIRTUAL VISIT PROGRESS NOTE This is a virtual visit using MaxTraffic video visit. It required patient-provider interaction for [...] which included preparing to see the patient, trzn-if-hlgh patient care, completing clinical documentation, obtaining and/or reviewing separately obtained history, performing a medically appropriate examination, counseling and educating the patient/family/caregiver, ordering medications, tests, or procedures, communicating results to the patient/family/caregiver, and care coordination (not separately reported) Molnupiravir Eligibility and Patient Discussion [facility] Formulary Restriction Criteria: Adult outpatients 18 [...] 2022 3:04 PM documented in this encounter [facility] 07-14-2022 History of Present illness Narrative 07/14/2022 Patient presents with: Anxiety: Pre flight anxiety; upcoming flight SUBJECTIVE: This is a 71 year old that is here today for Above Complaints.. Will be flying to [place] on Thursday. Has direct flight. Reports fear [...] which included preparing to see the patient, kxql-yk-tvgp patient care, completing clinical documentation, obtaining and/or reviewing separately obtained history, performing a medically appropriate examination, counseling and educating the patient/family/caregiver, and ordering medications, tests, or procedures. documented in this encounter [facility] 06-30-2022 Miscellaneous Notes Pt notified of results via [employer]. Leslie Harden Ma Please call patient and let her know ultrasound does not show any fluid collection or mass in area. At this point I would continue to monitor area and if enlarges return to office. Enmanuel Waldron APRN.CNP documented in this encounter [facility] 06-26-2022 Note HNO ID: [id number] Author: Dawna Jimenez RT(R) Service: ? Author [...] RT Bunny(Kae) June 26, 2022 3:11 PM [facility] 06-26-2022 History of Present illness Narrative Radiology Service Progress Note PATIENT NAME: aMrk Melchor DATE OF SERVICE: June 26, 2022 [...] 2022 3:11 PM documented in this encounter [facility] 06-25-2022 Miscellaneous Notes PDMP website checked [...] Camille Ponce LPN documented in this encounter [facility] 06-25-2022 History of Present illness Narrative [...] which included preparing to see the patient, [id number] patient care, completing clinical documentation, obtaining and/or reviewing separately obtained history, performing a medically appropriate examination, counseling and educating the patient/family/caregiver, and ordering medications, tests, or procedures. documented in this encounter [facility] 05-28-2022 Miscellaneous Notes May 28, 2022 PID: [id number] Mark Melchor [address] [place] [id number] Dear Mrs. Melchor, We are pleased to [...] report will be kept on file at [facility] as part of your permanent medical record and are available for your continuing care. Thank you for allowing us to help in meeting your health care needs. Sincerely, Dr. Crawford Interpreting Radiologist [facility] (Normal over 40) documented in this encounter [facility] 05-28-2022 History of Present illness Narrative [...] 2022 1:07 PM documented in this encounter [facility] 05-27-2022 Miscellaneous Notes Patient telephoned and made aware. Natty Hernandez LPN Please call patient and let her know her order for mammogram has been placed. She may schedule at her convenience. Thanks, Enmanuel Waldron APRN.NATAN Pt is requesting mammogram order to be placed, please review and advise. CARLTON Del Castillo May 26, 2022 10:52 AM documented in this encounter [facility] 04-14-2022 Miscellaneous Notes Patient phones requesting refills as follows: Pending Prescriptions Disp Refills ROSUVASTATIN 5 MG TABLET 90 tablet 1 Sig: Take 1 tablet by mouth daily at bedtime. CLEMENT: No EBONY 12/30/21 NOV no upcoming appt noted Please review and advise. Jeanette Bradley LPN documented in this encounter [facility] 03-10-2022 Miscellaneous Notes PDMP website checked and validated. All prescriptions have been APPROPRIATELY filled. No suspicious activity was identified. March 10, 2022 Ceci Jacob APRN.TILE PRESSER EBONY: 08/30/21 NOV: None scheduled at this time Physician: Dr. Tucker Call from pharmacy requesting refill. Please E-Scribe Pending Prescriptions Disp Refills PREGABALIN 50 MG CAPSULE 90 capsule Sig: take 1 capsule by mouth at bedtime for 90 DAYS POLA Class: C-V CLEMENT: Yes Pharmacy Name: [facility] Phone #: [phone] Rosa Archuleta 08/30/21 Assessment and Plan: ASSESSMENT/PLAN: [...] or sooner prn. documented in this encounter [facility] 02-19-2022 History of Present illness Narrative Associated Order(s): Large Joint Arthro/Inj: R glenohumeral [facility] DEPARTMENT OF ORTHOPAEDIC SURGERY OFFICE VISIT DOCUMENTATION NOTE ASSESSMENT AND PLAN DIAGNOSIS: (M19.011) Primary osteoarthritis of right shoulder (primary encounter diagnosis) (M75.41) Impingement syndrome of right shoulder (M19.019) Arthritis of shoulder Mark Rose Chichiadrianna is here today at request of Dr.Bradley Koehler specifically for consultation of my opinion in regards to the chief complaint listed below. Correspondence will be shared today via the [employer] electronic health record or through regular mail, [...] R glenohumeral Informed Consent Consent Obtained: Verbal [place] Protocol A moment to CARE was completed. [...] & Interventional Orthopaedics Department of Orthopaedic Surgery [facility] CHIEF COMPLAINT / REASON FOR VISIT [...] Impression: IMPRESSION: Bilateral glenohumeral and acromioclavicular osteoarthrosis. Gas Adjuster: DELMAR Transcribe Date/Time: May 06 2021 10:33A... [...] results and radiologist's interpretation, available in the [facility] health record. Images were reviewed in the office today. Interpretation of the performed imaging is chronic degenerative changes. documented in this encounter [facility] 12-30-2021 History of Present illness Narrative [...] N39.0 - CONSULT TO UROLOGY Enmanuel Waldron APRN.TILE PRESSER Prescription instructions reviewed with patient as applicable. Patient advised if symptoms do not improve or if symptoms worsen sooner, to contact their primary care physician. Potential red flag symptoms discussed with the patient. Reviewed appropriate action plan to take if red flag symptoms occur. Patient agreeable to treatment plan. documented in this encounter [facility] 12-27-2021 Miscellaneous Notes Pt needs an appt with Dr. Carrillo for US guided glenohumeral injection. documented in this encounter [facility] documented as of this encounter (statuses as of 12/27/2021) [facility] History of Past illness Narrative* Problem Noted Date Resolved Date Meniere disease 09/04/2021 Overview: bilateral documented as of this encounter (statuses as of 12/30/2021) [facility] History of Past illness Narrative* Problem Noted Date Resolved Date Meniere disease 09/04/2021 Overview: bilateral documented as of this encounter (statuses as of 12/31/2021) [facility] History of Past illness Narrative* Problem Noted Date Resolved Date Meniere disease 09/04/2021 Overview: bilateral documented as of this encounter (statuses as of 02/19/2022) [facility] History of Past illness Narrative* Problem Noted Date Resolved Date Meniere disease 09/04/2021 Overview: bilateral documented as of this encounter (statuses as of 03/10/2022) [facility] History of Past illness Narrative* Problem Noted Date Resolved Date Meniere disease 09/04/2021 Overview: bilateral documented as of this encounter (statuses as of 04/14/2022) [facility] History of Past illness Narrative* Problem Noted Date Resolved Date Meniere disease 09/04/2021 Overview: bilateral documented as of this encounter (statuses as of 05/27/2022) [facility] History of Past illness Narrative* Problem Noted Date Resolved Date Meniere disease 09/04/2021 Overview: bilateral documented as of this encounter (statuses as of 05/29/2022) [facility] History of Past illness Narrative* Problem Noted Date Resolved Date Meniere disease 09/04/2021 Overview: bilateral documented as of this encounter (statuses as of 05/30/2022) [facility] History of Past illness Narrative* Problem Noted Date Resolved Date Meniere disease 09/04/2021 Overview: bilateral documented as of this encounter (statuses as of 06/25/2022) [facility] History of Past illness Narrative* Problem Noted Date Resolved Date Meniere disease 09/04/2021 Overview: bilateral documented as of this encounter (statuses as of 06/25/2022) [facility] History of Past illness Narrative* Problem Noted Date Resolved Date Meniere disease 09/04/2021 Overview: bilateral documented as of this encounter (statuses as of 06/26/2022) [facility] History of Past illness Narrative* Problem Noted Date Resolved Date Meniere disease 09/04/2021 Overview: bilateral documented as of this encounter (statuses as of 06/27/2022) [facility] History of Past illness Narrative* Problem Noted Date Resolved Date Meniere disease 09/04/2021 Overview: bilateral documented as of this encounter (statuses as of 06/30/2022) [facility] of Past illness Narrative* Problem Noted Date Resolved Date Meniere disease 09/04/2021 Overview: bilateral documented as of this encounter (statuses as of 07/14/2022) [facility] of Past illness Narrative* Problem Noted Date Resolved Date Meniere disease 09/04/2021 Overview: bilateral documented as of this encounter (statuses as of 09/12/2022) [facility] of Past illness Narrative* Problem Noted Date Resolved Date Meniere disease 09/04/2021 Overview: bilateral documented as of this encounter (statuses as of 09/12/2022) [facility] of Past illness Narrative* Problem Noted Date Resolved Date Meniere disease 09/04/2021 Overview: bilateral documented as of this encounter (statuses as of 09/25/2022) [facility] of Past illness Narrative* Problem Noted Date Resolved Date Meniere disease 09/04/2021 Overview: bilateral documented as of this encounter (statuses as of 10/09/2022) [facility] of Past illness Narrative* Problem Noted Date Resolved Date Meniere disease 09/04/2021 Overview: bilateral documented as of this encounter (statuses as of 03/05/2023) [facility] History of Past illness Narrative* Problem Noted Date Resolved Date Meniere disease 09/04/2021 Overview: bilateral documented as of this encounter (statuses as of 03/13/2023) [facility] History of Past illness Narrative* Problem Noted Date Diagnosed Date Resolved Date Meniere disease 09/04/2021 Overview: bilateral documented as of this encounter (statuses as of 04/25/2023) [facility] History of Past illness Narrative* Problem Noted Date Diagnosed Date Resolved Date Meniere disease 09/04/2021 Overview: bilateral documented as of this encounter (statuses as of 05/22/2023) [facility] History of Past illness Narrative* Problem Noted Date Diagnosed Date Resolved Date Meniere disease 09/04/2021 Overview: bilateral documented as of this encounter (statuses as of 07/13/2023) [facility] History of Past illness Narrative* Problem Noted Date Diagnosed Date Resolved Date Meniere disease 09/04/2021 Overview: bilateral documented as of this encounter (statuses as of 08/22/2023) [facility] History of Past illness Narrative* Problem Noted Date Diagnosed Date Resolved Date Meniere disease 09/04/2021 Overview: bilateral documented as of this encounter (statuses as of 08/24/2023) [facility] Diagnosis Symptoms of urinary tract infection- Primary Other symptoms involving urinary system Frequent UTI Urinary tract infection, site not specified [facility] Primary osteoarthritis of right shoulder- Primary Primary localized osteoarthrosis, shoulder region Impingement syndrome of right shoulder Other affections of shoulder region, not elsewhere classified Arthritis of shoulder Unspecified arthropathy, shoulder region [facility] [place] [facility] Diagnosis Chronic mixed headache syndrome Other headache syndromes Dizziness and giddiness Cervicalgia [facility] [place] [facility] Diagnosis Encounter for screening mammogram for malignant neoplasm of breast- Primary Other screening mammogram [facility] [place] [facility] Diagnosis Encounter for screening mammogram for malignant neoplasm of breast Other screening mammogram [facility] [place] [facility] Diagnosis Skin lump of leg, left- Primary [facility] [place] [facility] Diagnosis Chronic mixed headache syndrome Other headache syndromes Dizziness and giddiness Cervicalgia documented in this encounter [facility] [place] note* Diagnosis Chronic mixed headache syndrome Other headache syndromes Dizziness and giddiness Cervicalgia [facility] [place] [facility]* Diagnosis Skin lump of leg, left [facility] [place] [facility]* Diagnosis 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 [facility] [place] [facility]* Diagnosis COVID-19- Primary [facility] Diagnosis COVID-19 [facility]* Diagnosis Dizziness- Primary Dizziness and giddiness Chronic mixed headache syndrome Other headache syndromes Cervicalgia History of cerebellar stroke documented in this encounter [facility] [place] note* Diagnosis Dizziness- Primary Dizziness and giddiness Cervicalgia History of cerebellar stroke Nonintractable episodic headache, unspecified headache type History of stroke Transient ischemic attack (TIA), and cerebral infarction without residual deficits [facility] [place] [facility]* Diagnosis Dizziness Dizziness and giddiness [facility] [place] [facility]* Diagnosis Encounter for long-term (current) use of medications- Primary Encounter for long-term (current) use of other medications Dizziness Dizziness and giddiness [facility] [place] [facility] Diagnosis Encounter for screening mammogram for breast cancer [facility] [place] [facility]* Diagnosis Dizziness- Primary Dizziness and giddiness Cervicalgia History of cerebellar stroke Nonintractable episodic headache, unspecified headache type documented in this encounter [facility] for referral (narrative)* Diagnostic Procedure Only (Routine) - Authorized Specialty Diagnoses / Procedures Referred By Contac t Referred To Contact [facility] Diagnoses Encounter for screening mammogram for malignant neoplasm of breast Procedures JAVON SCREENING SCREENING MAMMOGRAPHY BI 2-VIEW BREAST INC CAD Enmanuel Waldron APRN.CNP [address] [place] [address] [facility] [address] [place] [address] Referral ID Status Reason Start Date Expiration Date Visits Requested Visits Authorized [id number] Authorized Auto-Generat ed Referral 05/27/2022 06/26/2023 1 1 [facility] for referral (narrative)* Diagnostic Procedure Only (Routine) - Closed Specialty Diagnoses / Procedures Referred By Contac t Referred To Contact [facility] Diagnoses Encounter for screening mammogram for malignant neoplasm of breast Procedures JAVON SCREENING SCREENING MAMMOGRAPHY BI 2-VIEW BREAST INC [facility] Enmanuel Waldron APRN.TILE PRESSER [address] [place] [address] [facility] [address] [place] [address] Referral ID Status Reason Start Date Expiration Date V isits Requested Visits Authorized [id number] Closed Auto-Generate d Referral 05/27/2022 06/26/2023 1 1 [facility] for referral (narrative)* Diagnostic Procedure Only (Routine) - Authorized Specialty Diagnoses / Procedures Referred By Contac t Referred To Contact [facility] IMAGING Diagnoses Skin lump of leg, left Procedures US EXTREMITY MASS/FLUID COLLECTION LT Enmanuel Waldron APRN.CNP [address] [place] [address] [facility] Referral ID Status Reason Start Date Expiration Date Visits Requested Visits Authorized [id number] Authorized Auto-Generat ed Referral 06/25/2022 07/25/2023 1 1 [facility] for referral (narrative)* Diagnostic Procedure Only (Routine) - Closed Specialty Diagnoses / Procedures Referred By Charli t Referred To Contact US IMAGING Diagnoses Skin lump of leg, left Procedures US EXTREMITY MASS/FLUID COLLECTION LT Enmanuel Waldron, MP.TILE PRESSER [address] [place] [address] [facility] Referral ID Status Reason Start Date Expiration Date V isits Requested Visits Authorized [id number] Closed Auto-Generate d Referral 06/25/2022 07/25/2023 1 1 [facility] for referral (narrative)* Diagnostic Procedure Only (Routine) - Pending Review Specialty Diagnoses / Procedures Referred By Charli martines Referred To Contact [facility] Diagnoses Encounter for screening mammogram for breast cancer Procedures JAVON SCREENING SCREENING MAMMOGRAPHY BI 2-VIEW BREAST INC CAD Leonarda Liriano MD [address] [place] [address] [facility] [address] [place] [address] Referral ID Status Reason Start Date Expiration Date Visits Requested Visits Authorized [id number] Pending Review Auto-Generat ed Referral 08/06/2024 1 1 [facility] for visit Narrative* Diagnostic Procedure Only (Routine) - Closed Specialty Diagnoses / Procedures Referred By Charli t Referred To Contact [facility] Diagnoses Encounter for screening mammogram for malignant neoplasm of breast Procedures JAVON SCREENING SCREENING MAMMOGRAPHY BI 2-VIEW BREAST INC Enmanuel Reynolds APRN.TILE PRESSER [address] [place] [address] [facility] [address] [place] [address] Referral ID Status Reason Start Date Expiration Date V isits Requested Visits Authorized [id number] Closed Auto-Generate d Referral 05/27/2022 06/26/2023 1 1 [facility] for visit Narrative* Diagnostic Procedure Only (Routine) - Closed Specialty Diagnoses / Procedures Referred By Darrinac t Referred To Contact US IMAGING Diagnoses Skin lump of leg, left Procedures US EXTREMITY MASS/FLUID COLLECTION LT PodlogEnmanuel martin APRN.TILE PRESSER [address] [place] [address] Us Imaging Referral ID Status Reason Start Date Expiration Date V isits Requested Visits Authorized [id number] Closed Auto-Generate d Referral 06/25/2022 07/25/2023 1 1 [facility] Advance Directives No Advanced Directives Records FoundDocuments on File Type Date Recorded 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 Advance Directive(s) 11/06/2021 7:18 AM Advance Directive(s) 10/30/2021 9:41 AM Documents on File Type Date Recorded 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 Advance Directive(s) 11/06/2021 7:18 AM Advance Directive(s) 10/30/2021 9:41 AM Reason for Referral Specialty Diagnoses / Procedures Referred By Contac t Referred To Contact Urology Diagnoses Frequent UTI Procedures CONSULT TO UROLOGY OFFICE/OUTPATIENT [facility] 60-74 MINUTES Podlog[employer], MP Mcmullen.TILE PRESSER [address] [place] [address] Referral ID Status Reason Start Date Expiration Date Visits Requested Visits Authorized [id number] Pending Review PCP Requested Referral 12/30/2021 12/30/2022 [...] or prosecute any alcohol or drug abuse patient.[facility] the event this information is protected by the Federal Confidentiality of Alcohol and Drug Abuse Patient Records regulations: The Federal rules restrict any use of the information to criminally investigate or prosecute any alcohol or drug abuse patient.[facility] the event this information is protected by the Federal Confidentiality of Alcohol and Drug Abuse Patient Records regulations: The Federal rules restrict any use of the information to criminally investigate or prosecute any alcohol or drug abuse patient.[facility] the event this information is protected by the Federal Confidentiality of Alcohol and Drug Abuse Patient Records regulations: The Federal rules restrict any use of the information to criminally investigate or prosecute any alcohol or drug abuse patient.[facility] Hospital[facility] the event this information is protected by the Federal Confidentiality of Alcohol and Drug Abuse Patient Records regulations: The Federal rules restrict any use of the information to criminally investigate or prosecute any alcohol or drug abuse patient.[facility] the event this information is protected by the Federal Confidentiality of Alcohol and Drug Abuse Patient Records regulations: The Federal rules restrict any use of the information to criminally investigate or prosecute any alcohol or drug abuse patient.[facility] the event this information is protected by the Federal Confidentiality of Alcohol and Drug Abuse Patient Records regulations: The Federal rules restrict any use of the information to criminally investigate or prosecute any alcohol or drug abuse patient.[facility] the event this information is protected by the Federal Confidentiality of Alcohol and Drug Abuse Patient Records regulations: The Federal rules restrict any use of the information to criminally investigate or prosecute any alcohol or drug abuse patient.[facility] the event this information is protected by the Federal Confidentiality of Alcohol and Drug Abuse Patient Records regulations: The Federal rules restrict any use of the information to criminally investigate or prosecute any alcohol or drug abuse patient.[facility] Hospital[facility] the event this information is protected by the Federal Confidentiality of Alcohol and Drug Abuse Patient Records regulations: The Federal rules restrict any use of the information to criminally investigate or prosecute any alcohol or drug abuse patient.[facility] Hospital[facility] the event this information is protected by the Federal Confidentiality of Alcohol and Drug Abuse Patient Records regulations: The Federal rules restrict any use of the information to criminally investigate or prosecute any alcohol or drug abuse patient.[facility] Hospital[facility] the event this information is protected by the Federal Confidentiality of Alcohol and Drug Abuse Patient Records regulations: The Federal rules restrict any use of the information to criminally investigate or prosecute any alcohol or drug abuse patient.[facility] Hospital[facility] the event this information is protected by the Federal Confidentiality of Alcohol and Drug Abuse Patient Records regulations: The Federal rules restrict any use of the information to criminally investigate or prosecute any alcohol or drug abuse patient.[facility] Hospital[facility] the event this information is protected by the Federal Confidentiality of Alcohol and Drug Abuse Patient Records regulations: The Federal rules restrict any use of the information to criminally investigate or prosecute any alcohol or drug abuse patient.[facility] HospitalIn the event this information is protected by the Federal Confidentiality of Alcohol and Drug Abuse Patient Records regulations: The Federal rules restrict any use of the information to criminally investigate or prosecute any alcohol or drug abuse patient.[facility] the event this information is protected by the Federal Confidentiality of Alcohol and Drug Abuse Patient Records regulations: The Federal rules restrict any use of the information to criminally investigate or prosecute any alcohol or drug abuse patient.[facility] the event this information is protected by the Federal Confidentiality of Alcohol and Drug Abuse Patient Records regulations: The Federal rules restrict any use of the information to criminally investigate or prosecute any alcohol or drug abuse patient.[facility] the event this information is protected by the Federal Confidentiality of Alcohol and Drug Abuse Patient Records regulations: The Federal rules restrict any use of the information to criminally investigate or prosecute any alcohol or drug abuse patient.[facility] the event this information is protected by the Federal Confidentiality of Alcohol and Drug Abuse Patient Records regulations: The Federal rules restrict any use of the information to criminally investigate or prosecute any alcohol or drug abuse patient.[facility]In the event this information is protected by the Federal Confidentiality of Alcohol and Drug Abuse Patient Records regulations: The Federal rules restrict any use of the information to criminally investigate or prosecute any alcohol or drug abuse patient.[facility] HospitalIn the event this information is protected by the Federal Confidentiality of Alcohol and Drug Abuse Patient Records regulations: The Federal rules restrict any use of the information to criminally investigate or prosecute any alcohol or drug abuse patient.[facility] HospitalIn the event this information is protected by the Federal Confidentiality of Alcohol and Drug Abuse Patient Records regulations: The Federal rules restrict any use of the information to criminally investigate or prosecute any alcohol or drug abuse patient.[facility] HospitalIn the event this information is protected by the Federal Confidentiality of Alcohol and Drug Abuse Patient Records regulations: The Federal rules restrict any use of the information to criminally investigate or prosecute any alcohol or drug abuse patient.[facility] HospitalIn the event this information is protected by the Federal Confidentiality of Alcohol and Drug Abuse Patient Records regulations: The Federal rules restrict any use of the information to criminally investigate or prosecute any alcohol or drug abuse patient.[facility] HospitalIn the event this information is protected by the Federal Confidentiality of Alcohol and Drug Abuse Patient Records regulations: The Federal rules restrict any use of the information to criminally investigate or prosecute any alcohol or drug abuse patient.[facility] HospitalIn the event this information is protected by the Federal Confidentiality of Alcohol and Drug Abuse Patient Records regulations: The Federal rules restrict any use of the information to criminally investigate or prosecute any alcohol or drug abuse patient.[facility] HospitalIn the event this information is protected by the Federal Confidentiality of Alcohol and Drug Abuse Patient Records regulations: The Federal rules restrict any use of the information to criminally investigate or prosecute any alcohol or drug abuse patient.[facility] Care Teams (unrecognized sec tion and content) Yard Jockey Relationship Specialty Start Date End Date Leonarda Liriano MD [address] [facility] [place] [address] PCP - General Family Practice 11/08/18 Yard Jockey Relationship Specialty Start Date End Date Leonarda Liriano MD [address] [facility] [place] [address] PCP - General Family Practice 11/08/18 Yard Jockey Relationship Specialty Start Date End Date Leonarda Liriano MD [facility] [facility] [place] [address] PCP - General Family Practice 11/08/18 Yard Jockey Relationship Specialty Start Date End Date Leonarda Liriano MD [facility] [place] [address] PCP - General Family Practice 11/08/18 Yard Jockey Relationship Specialty Start Date End Date Leonarda Liriano MD [facility] [place] [address] PCP - General Family Practice 11/08/18 Yard Jockey Relationship Specialty Start Date End Date Leonarda Liriano MD [facility] [place] [address] PCP - General Family Practice 11/08/18 Yard Jockey Relationship Specialty Start Date End Date Leonarda Liriano MD [address] [facility] [place] [address] PCP - General Family Practice 11/08/18 Yard Jockey Relationship Specialty Start Date End Date Leonarda Liriano MD [facility] [place] [address] PCP - General Family Practice 11/08/18 Yard Jockey Relationship Specialty Start Date End Date Leonarda Liriano MD [address] [place] [address] PCP - General Family Medicine 11/08/18 Yard Jockey Relationship Specialty Start Date End Date Leonarda Liriano MD [address] [facility] [place] [address] PCP - General Family Medicine 11/08/18 Yard Jockey Relationship Specialty Start Date End Date Leonarda Liriano MD [address] [facility] [place] [address] PCP - General Family Medicine 11/08/18 Yard Jockey Relationship Specialty Start Date End Date Leonarda Liriano MD [address] [facility] [place] [address] PCP - General Family Medicine 11/08/18 Yard Jockey Relationship Specialty Start Date End Date Leonarda Liriano MD [address] [facility] [place] [address] PCP - General Family Medicine 11/08/18 Yard Jockey Relationship Specialty Start Date End Date Leonarda Liriano MD [address] [facility] [place] [address] PCP - General Family Medicine 11/08/18 Yard Jockey Relationship Specialty Start Date End Date Leonarda Liriano MD [address] [facility] [place] [address] PCP - General Family Medicine 11/08/18 Yard Jockey Relationship Specialty Start Date End Date Leonarda Liriano MD [address] [facility] [place] [address] PCP - General Family Medicine 11/08/18 Yard Jockey Relationship Specialty Start Date End Date Leonarda Liriano MD [address] [facility] [place] [address] PCP - General Family Medicine 11/08/18 Yard Jockey Relationship Specialty Start Date End Date Leonarda Liriano MD [address] [facility] [place] [address] PCP - General Family Medicine 11/08/18 Yard Jockey Relationship Specialty Start Date End Date Leonarda Liriano MD [address] [facility] [place], [place] [address] [phone] PCP - General Family Medicine 11/08/18 Yard Jockey Relationship Specialty Start Date End Date Leonarda Liriano MD [address] [facility] [place], [place] [address] [phone] PCP - General Family Medicine 11/08/18 Yard Jockey Relationship Specialty Start Date End Date Leonarda Liriano MD [address] [facility] [place], [place] [address] [phone] PCP - General Family Medicine 11/08/18 Yard Jockey Relationship Specialty Start Date End Date Leonarda Liriano MD [address] [facility] [place], [place] [id number] PCP - General Family Medicine 11/08/18 Reason [...] DATE CREATED AUTHOR AUTHOR'S JOANA PASTRANA 08/24/2023 [facility] FOR RECORDS PERTAINING TO PATIENTS WHO ARE [...] BE BASED ON THE PRIMARY CLINICAL RECORDS. [employer] provides no warranty or guarantee of the accuracy or completeness of information in this document.
== END | disposition home or self-care (01) ==
LOC: OPBI 14:11
PROVIDERS: PCP Internal Medicine; Referring Provider Internal Medicine; Visit Provider Internal Medicine
DX: Z12.31 Encounter for screening mammogram for malignant neoplasm of breast (principal)
CPT/HCPCS: 77063; 77067

== ENCOUNTER → 2024-02-02 | Outpatient (CLI) | payer MEDICARE, SELFPAY ==
[2024-02-02 16:56] LABS: Vitamin D,25 Hydroxy 58.2 ng/mL
[2024-02-02 17:08] LABS: Anion Gap 3 (5-15); BUN 17 mg/dL (7-18); BUN/Creat Ratio 20.8 RATIO (10-20); CPK Total, Creatine Kinase 95 U/L (26-192); Calcium,Total 8.9 mg/dL (8.5-10.1); Chloride 106 mmol/L (98-107); Creatinine, Serum 0.82 mg/dL (0.55-1.02); EST Glomerular Filtration Rate 73 mL/min (>60); Est Glom Filt Rate - Afr Amer 88 mL/min (>60); Glucose 120 mg/dL (74-106); Magnesium 2.8 mg/dL (1.6-2.6); Potassium 4.5 mmol/L (3.5-5.1); Sodium Level 139 mmol/L (136-145)
[2024-02-02 17:46] LABS: D-Dimer Quantitative (DVT/PE) < 0.27 FEU/ug/m (0.27-0.49)
== END | disposition home or self-care (01) ==
LOC: BIMLAB 14:54
PROVIDERS: PCP Internal Medicine; Visit Provider Internal Medicine
DX: M79.662 Pain in left lower leg (principal); M85.80 Other specified disorders of bone density and structure, unspecified site
CPT/HCPCS: 36415; 80048; 82306; 82550; 83735; 85379

== ENCOUNTER → 2024-06-14 | Outpatient (CLI) | payer MEDICARE, SELFPAY ==
[2024-06-14 12:26] LABS: Absolute Lymphocyte Count 2.09 X10^3/uL (0.83-4.51); Absolute Neutrophil Count 3.5 X10^3/uL (2.0-7.7); Basophil# 0.08 X10^3/uL; Basophil% 1.3 % (0-1); Eosinophils% 3.2 % (0-5); Hematocrit 40.1 % (37-47); Hemoglobin 12.5 g/dL (12.0-15.0); Lymphocyte # 2.09 X10^3/ul (0.83-4.51); Mean Corp Hgb Conc 31.2 g/dL (32-36); Mean Corpuscular Hgb 26.4 pg (27.0-32.0); Mean Corpuscular Volume 84.6 fL (81-99); Mean Platelet Vol. 11.8 fl (6.2-12.0); Monocyte# 0.46 X10^3/uL; Monocyte% 7.3 % (0-10); NRBC Flagged by Analyzer 0 % (0-5); Neutrophil # 3.48 X10^3/uL (2.7-7.7); Neutrophil % 54.9 % (47-70); Platelet Count 302 K/mm3 (150-450); RBC Distribution Width CV 15.4 % (11.6-14.6); RBC Distribution Width SD 47.6 fl (35.1-43.9); Red Blood Count 4.74 M/mm3 (4.2-5.4); White Blood Count 6.3 K/mm3 (4.4-11.0)
[2024-06-14 13:34] LABS: ALB/GLOB Ratio 1.1 RATIO (0.9-2.4); AST(SGOT) 19 U/L (15-37); Alanine Aminotransfer ALT/SGPT 16 U/L (13-56); Albumin, Serum 3.6 g/dL (3.2-5.0); Alkaline Phosphatase 72 U/L (45-117); Anion Gap 4 (5-15); BUN 15 mg/dL (7-18); BUN/Creat Ratio 19.8 RATIO (10-20); Calcium,Total 9.4 mg/dL (8.5-10.1); Chloride 108 mmol/L (98-107); Cholesterol 141 mg/dL (200); Creatinine, Serum 0.76 mg/dL (0.55-1.02); EST Glomerular Filtration Rate 79 mL/min (>60); Est Glom Filt Rate - Afr Amer 96 mL/min (>60); Globulin 3.2 g/dL (2.2-4.2); Glucose 90 mg/dL (74-106); High Density Lipoprotein 56 mg/dL; Potassium 3.8 mmol/L (3.5-5.1); Protein, Total 6.8 g/dL (6.4-8.2); Sodium Level 139 mmol/L (136-145); Triglycerides 102 mg/dL; Very Low Density Lipoprotein 20 mg/dL (5-40)
[2024-06-14 13:54] LABS: Hemoglobin A1c 5.8 % (3.8-5.6)
== END | disposition home or self-care (01) ==
LOC: BIMLAB 08:17
PROVIDERS: PCP Internal Medicine; Visit Provider Nurse Practitioner
DX: E78.2 Mixed hyperlipidemia (principal); R73.03 Prediabetes
CPT/HCPCS: 36415; 80053; 80061; 83036; 85025

== ENCOUNTER → 2024-10-10 | Outpatient (CLI) | payer MEDICARE, SELFPAY ==
--- NOTE | 2024-10-10 13:48 | BI_ITS ---
MAMMOGRAPHY - BILATERAL SCREENING REASON FOR EXAM: Female, 74 years old. Routine annual screening examination. PERTINENT HISTORY: Aunt with breast cancer. TECHNIQUE: Digital bilateral breast santhosh (3D mammographic acquisition) in the CC and MLO projections. 2-D mediolateral oblique (MLO) and craniocaudad (CC) views of both breasts were obtained. CAD: Full Field Digital Mammography with Computer Added Detection was performed. COMPARISON: Comparison is made with prior study dated October 08, 2023 and September 24, 2018. FINDINGS: Breast Composition: There are scattered areas of fibroglandular density. There are no dominant masses or suspicious calcifications. Stable small bilateral axillary lymph nodes. No other significant abnormalities are identified. There has been no significant change since the prior study. BI/SCRN MAMM (CAD)W/[place] BILAT IMPRESSION: Stable bilateral screening mammogram. Yearly follow-up mammogram recommended. (A) ASSESSMENT CATEGORY: BIRADS Category 2: Benign. A letter regarding these results will be sent to the patient by the facility within 30 days. Approximately 10% of breast cancers are not detected by mammography. A normal mammogram should not delay biopsy of a clinically suspicious abnormality. [id number] Electronically Signed: Elieser Gonzalez MD at 14:32 EST ,
== END | disposition home or self-care (01) ==
LOC: OPBI 13:47
PROVIDERS: PCP Internal Medicine; Referring Provider Internal Medicine; Visit Provider Internal Medicine
DX: Z12.31 Encounter for screening mammogram for malignant neoplasm of breast (principal)
CPT/HCPCS: 77063; 77067

== ENCOUNTER → 2025-01-10 | Outpatient (CLI) | payer MEDICARE, SELFPAY ==
--- NOTE | 2025-01-10 08:56 | ECHOD_ITS ---
Reason For Study Reason For Study: Dyspnea/SOB Procedure This was a 2D Doppler, Color Flow transthoracic echocardiogram. Exam performed in department. Left Ventricle Normal LV size. Left ventricular systolic function is normal. The left ventricular ejection fraction is 60 %. Stage 1 diastolic dysfunction. No regional wall motion abnormalities noted. Right Ventricle Normal RV size. Normal systolic function. Atria Normal left atrium. Normal right atrium. Mitral Valve Normal mitral valve. Tricuspid Valve Normal tricuspid valve. Mild to moderate (1-2+) tricuspid valve insufficiency. Pulmonary artery systolic pressure is 29 mmHg. Aortic Valve Trisinus/trileaflet aortic valve. Mild (1+) aortic valve insufficiency. Pulmonic Valve Normal pulmonic valve. Great Vessels Normal aortic root. The pulmonary artery is normal size. Inferior vena cava collapse with respiration. Pericardium/Pleural No pericardial effusion. MMode/2D Measurements & Calculations LVIDd: 4.2 cm IVSd: 0.98 cm Ao root diam: 3.3 cm LVIDs: 2.5 cm LVPWd: 0.89 cm RVDd: 3.5 cm FS: 39.6 % LAV(MOD-bp): 57.0 ml LVAd ap4: 24.2 cm2 SV(MOD-sp4): 39.0 ml LAV(MOD-bp) Indexed: 34.1 ml/m2 LVLd ap4: 7.2 cm SI(MOD-sp4): 23.3 ml/m2 LAV(MOD-sp2): 51.4 ml EDV(MOD-sp4): 64.6 ml LAV(MOD-sp4): 62.0 ml EDV(sp4-el): 69.1 ml LVAs ap4: 13.4 cm2 LVLs ap4: 5.8 cm ESV(MOD-sp4): 25.6 ml ESV(sp4-el): 26.1 ml EF(MOD-sp4): 60.4 % EF(sp4-el): 62.2 % SV(sp4-el): 43.0 ml LA A4 area: 19.1 cm2 LA dimension(2D): 4.0 cm RA A4 area: 12.5 cm2 Time Measurements MV dec time: 0.25 sec Doppler Measurements & Calculations MV E max jigar: 57.7 cm/sec Lat Peak E' Jigar: 5.3 cm/sec Med Peak E' Jigar: 8.3 cm/sec MV A max jigra: 70.5 cm/sec E/E' lat: 10.9 E/E' med: 7.0 MV E/A: 0.82 MV V2 max: 83.4 cm/sec MV P1/2t max jigar: 77.4 cm/sec Ao V2 max: 143.0 cm/sec MV max P.8 mmHg MV P1/2t: 92.5 msec Ao max P.2 mmHg MV V2 mean: 41.3 cm/sec Ao V2 mean: 92.3 cm/sec MV mean P.85 mmHg MV dec slope: 244.9 cm/sec2 Ao mean P.9 mmHg MV V2 VTI: 30.1 cm MVA(P1/2t): 2.4 cm2 Ao V2 VTI: 30.4 cm AV (velocity ratio): 0.83 AI max jigar: 474.5 cm/sec LV V1 max: 112.6 cm/sec TV V2 max: 241.6 cm/sec AI max P.2 mmHg LV V1 max P.1 mmHg TV max P.3 mmHg LV V1 mean P.5 mmHg AI dec slope: 257.8 cm/sec2 LV V1 mean: 74.1 cm/sec AI P1/2t: 539.1 msec LV V1 VTI: 25.1 cm PA V2 max: 84.4 cm/sec TR max jigar: 254.3 cm/sec PI dec slope: 118.9 cm/sec2 TR max P.9 mmHg ECHO/Echo Complete Interpretation Summary Normal LV size. Left ventricular systolic function is normal. The left ventricular ejection fraction is 60 %. Stage 1 diastolic dysfunction. Mild (1+) aortic valve insufficiency. Ordering Physician: Christy Neal Referring Physician: Christy Neal Performed By: Warren Clarke RCS
== END | disposition home or self-care (01) ==
PROVIDERS: PCP Internal Medicine; Referring Provider Internal Medicine; Visit Provider Internal Medicine
DX: R06.02 Shortness of breath (principal)
CPT/HCPCS: 93306

== ENCOUNTER → 2025-03-07 | Outpatient (CLI) | payer MEDICARE, SELFPAY ==
--- NOTE | 2025-03-07 09:30 | BD_ITS ---
PROCEDURE: DEXA BONE DENSITY STUDY 03/07/2025 REASON FOR EXAM: OSTEOPENIA F, age 74 y/o . Postmenopausal. TECHNIQUE: DEXA BONE DENSITY STUDY COMPARISON: Prior study dated March 05, 2023. FINDINGS: BMD and T-SCORES Lumbar spine: 1.069 g/cm2, T-score 0.1 Levels: L1 through L4 Change from prior: Improvement of 0.3%. Left femoral neck: 0.697 g/cm2, T-score -1.4 Femoral neck comparison data not recommended for monitoring change. Left total hip: 0.823 g/cm2, T-score -1.0 Change from prior: Improvement of 0.3%. Right femoral neck: 0.680 g/cm2, T-score -1.5 Femoral neck comparison data not recommended for monitoring change. Right total hip: 0.827 g/cm2, T-score -0.9 Change from prior: Improvement of 1.3%. The World Health Organization has defined the following categories based on bone density: Normal bone density: T-score equal to or greater than -1.0 Osteopenia: T-score between -1.0 and -2.5 Osteoporosis: T-score equal to or less than -2.5 The patient does meet the pharmacological treatment recommendations for prevention of osteoporosis. BD/Dexa Bone Density Study IMPRESSION: OSTEOPENIA. Recommend follow-up as clinically warranted. Reading Location: [place] [id number]
== END | disposition home or self-care (01) ==
LOC: OPBD 09:27
PROVIDERS: PCP Internal Medicine; Referring Provider Internal Medicine; Visit Provider Internal Medicine
DX: Z78.0 Asymptomatic menopausal state (principal)
CPT/HCPCS: 77080

== ENCOUNTER → 2025-06-19 | Outpatient (CLI) | payer MEDICARE, SELFPAY ==
--- OUTSIDE RECORDS SUMMARY | 2025-05-30 08:26 | XMS RPT_ITS ---
Author Name Auto Generated Organization OHIP Care Team Providers Care Toll Collector Supervisor Name Role Phone KASEY HIRSCH Attending Unavailable LEONARDA ALANIS Primary Care Unavailab RAFY Lara JR Attending Unavailable KSENIA BUTLER Primary Care Unavailable KASEY HIRSCH Attending Unavailable KSENIA BUTLER Primary Care Unavailable PROBLEMS DATE TYPE CONDITION / CODE ATTENDING STATUS CHARLIE E 06/22/2024 Active Vestibular migra ine / G43.809(ICD-10) KASEY HIRSCH Active [facility] 06/22/2024 Active Dizziness / R42(ICD-10) MENDOZA HIRSCH Active [facility] 06/22/2024 Active Cervicalgia / M54.2(ICD-10) KASEY HIRSCH Active [facility] 06/22/2024 Active Nonintractable e pisodic headache, unspecified headache type / R51.9(ICD-10) KASEY HIRSCH Active [facility] 06/22/2024 Active History of cereb ellar stroke / Z86.73(ICD-10) KASEY HIRSCH Active [facility] 06/22/2024 Active History of strok e / Z86.73(ICD-10) KASEY HIRSCH Active [facility] PROCEDURES No Procedure Records Found RESULTS CNOV Observed: 05/30/2025 8:30 AM Status: COMPLETED Source: [facility] Office Visit ([place]) MARK MELCHOR ([id number]) 1950 F Date Time Provider Department 05/30/25 8:30 AM KASEY HIRSCH During your visit today, we recorded the following information about you: Pulse Respiration Blood pressure Weight 70/minute 16/minute 120/76 64 kg Kasey Hirsch PA-C 05/30/2025 9:37 AM Signed [facility] Follow up CC: Headache Follow up Last Visit: 11/25/[address] Tucker ASSESSMENT/PLAN: 1. Vestibular migraine - ICD9: 346.80, ICD10: G43.809 (primary diagnosis) 2. Dizziness - ICD9: 780.4, ICD10: R42 3. Cervicalgia - ICD9: 723.1, ICD10: M54.2 4. Nonintractable episodic headache, unspecified headache type - ICD9: 784.0, ICD10: R51.9 Patient overall doing well when on Lyrica 75mg BID. Unfortunately, pharmacy reportedly delayed refill and was out of meds for 5 days. During that time headaches and dizziness returned. Improving again now that on 75mg BID. Explained that may take another week of being on meds to achieve prior headache/dizziness control. Pt without SEs on meds. Reviewed 2020 MRI brain with pt. As no new symptoms do not feel need for new imaging at this time. Rx provided for Lyrica 75mg BID #90. Requesting renal fxn from PCP office. 5. History of cerebellar stroke - ICD9: V12.54, ICD10: Z86.73 6. History of stroke - ICD9: V12.54, ICD10: Z86.73 Noted on piror MRI in 2020. Uncertain to what impact this has on dizziness even this many years later. No new focal deficits and stable neuro exam. Continue ASA. BP goal <140/90. Glucose goal <140. On Crestor through PCP who is following lipids. Rafy Tucker MD Today: PT is here for headache/migraine follow up. Last seen by Dr. Tucker on 11/25/24 for migraine. On lyrica 75mg bid and felt it helped with sxs. 2 BAKER a week and dizziness improved. No changes in regimen. Since last visit headaches have been stable. Notes that she has maybe 1 flareup of her vestibular migraine a month, takes Tylenol for this. However, has a constant sense of dizziness in the background and most of the time. Described as an unsteadiness, lightheadedness and sense of movement. Exacerbated by quickly turning her head. Does note that when she runs out of the Lyrica she does have flareups of vestibular migraines but otherwise are well-controlled. Current Headache treatment Preventative: Lyrica 75mg bid Abortive: Tylenol Medications effective? sometimes # of doses of abortive medications per month: 1 Total headache days per month: 1 per month Total headache attacks per month: 1 per month Headache free days: Yes Duration of attacks: few hours Severity of headaches? mild Location: Frontal. Aura: None Accompanying symptoms: nausea, vertigo. Quality:aching . Worse with activity: Yes Pain today: 0/10 Prior Therapies Lyrica Wellbutrin The patient's prior records were reviewed including and lab testing, imaging, and procedures done since their last visit with me. Review of symptoms including constitutional, eyes, ENT, neck, respiratory, cardiovascular, GI, , musculoskeletal, hematologic, oncologic, endocrine, and psychiatric categories is unchanged. No new details in the family history or social history were offered by the patient. PAST MEDICAL HISTORY Diagnosis Date Arthritis Osteopenia Overactive bladder Prediabetes Primary osteoarthritis of right shoulder Rotator cuff arthropathy, right Stroke (HCC) had TIA (unsure when) showed on an MRI Vertigo Dr. Tucker PAST SURGICAL HISTORY Procedure Laterality Date ABDOMINAL SURGERY HX DELIVERY ONLY , low transverse x2 COLONOSCOPY 2015-repeat in 5 years. COLONOSCOPY 11/06/2021 repeat in 5 years DILATION AND CURETTAGE DXAND/THER NONOBSTETRIC 1984 Dilation AND curettage PAST SURGICAL HISTORY OF aspirated breast cyst TUBAL LIGATION ALLERGIES No Known Allergies Current Medications: meloxicam (MOBIC) 15 mg tablet Take 7.5 mg by mouth once daily. d-mannose 500 mg cap Take by mouth. rosuvastatin (CRESTOR) 5 mg tablet Take 1 [...] Take 1 tablet by mouth twice daily. pregabalin (LYRICA) 75 mg capsule Take 1 capsule by mouth two times a day for 180 days. Studies to Review: No New Health Issues: No New Social History: No New Family History: No REVIEW OF SYSTEMS: GENERAL:No weight loss, malaise or fevers. HEENT:no changes to hearing or vision NECK:negative for neck pain, swelling. RESPIRATORY: Negative for cough, wheezing or shortness of breath. CARDIOVASCULAR: Negative for chest pain, leg swelling or palpitations. GASTROINTESTINAL: Negative for abdominal discomfort, blood in stools or black stools or change in bowel habits GENITOURINARY: No history of dysuria, frequency or incontinence MUSKULOSKELETAL: Negative for joint pain or swelling, back pain or muscle pain. SKIN:Negative for lesions, rash, and itching. HEMATOLOGIC/LYMPHATIC/IMMUNOLOGIC:Negative for prolonged bleeding, bruising easily or swollen nodes. ENDOCRINE: Negative for cold or heat intolerance, polyuria, polydipsia NEUROLOGIC:See HPI PHYSICAL EXAMINATION: BP 120/76 Pulse 70 Resp 16 Wt 64 kg (141 lb) SpO2 97% BMI 24.98 kg/m? General: well appearing, in no acute distress, alert, HEENT: Normocephalic/atraumatic., Skin: Color, texture, turgor normal. No rashes or lesions, Lungs: Breathing comfortably, Neurological Examination: Cognition: The patient is alert and oriented times three Lucid and organized in conversation Able to tell detailed medical hx Speech is Normal in fluency volume and clarity Content and Syntax: Normal Comprehension: Normal, able to follow several step commands Cranial Nerves: Pupils are equal and reactive to light. Pupils normal in size Extraocular movements are grossly intact Good saccades and pursuits No nystagmus Hearing intact Good upgaze Visual aldridge are full to confrontation. Facial, motor and sensory exam is symmetric Equal v1,V2, V3 Tongue is in midline. No tongue fasciculation. Palate is upgoing bilaterally SCM and trapezius are full. Shoulder shrug intact Normal tone and strength. Normal coordination. DTRs are intact and symmetric bilaterally. Normal gait. Impression: ASSESSMENT/PLAN: 1. Dizziness - ICD9: 780.4, ICD10: R42 (primary diagnosis) 2. Nonintractable episodic headache, unspecified headache type - ICD9: 784.0, ICD10: R51.9 3. Vestibular migraine - ICD9: 346.80, ICD10: G43.809 Migraines are well-controlled, has maybe 1 flareup a month on Lyrica 75 mg twice daily. Does note that when she has difficulty getting a refill she will have flareups if she misses her medication. However, her main concern is having a constant sense of dizziness all the time, has difficulty describing it. Describes it as a lightheaded, movement sensation as well as being unsteady. Worsens with certain movements. Notes that she did have vestibular testing many years ago before she moved to [place] and does not want to repeat this at this time. Exam is otherwise reassuring no peripheral abnormality found, reflexes are normal. Discussed changing medications, including starting Cymbalta versus increasing Lyrica to 100 mg twice a day versus trying supplements. Patient elects to retry supplements, will start 1 at a time, if this is not beneficial may increase Lyrica to 100 mg twice daily or start Cymbalta. 4. History of cerebellar stroke - ICD9: V12.54, ICD10: Z86.73 5. Cervicalgia - ICD9: 723.1, ICD10: M54.2 No new neurologic symptoms that would warrant additional workup at this time. Compliant with aspirin and statin medication, follow with primary care for risk factor management. Plan: All options for treatment discussed. Preventative: Lyrica 75 mg twice daily Abortive: [id number]-lam-ropttel Follow-up: 6 months I spent a total of 30 minutes on the date of the service which included preparing to see the patient, gkjn-rh-qxsq patient care, completing clinical documentation, obtaining and/or reviewing separately obtained history, performing a medically appropriate examination, counseling and educating the patient/family/caregiver, and ordering medications, tests, or procedures. Kasey Hirsch PA-C General Neurology [address] [place] [address]. [id number] Appointment: [phone] Kasey Hirsch PA-C 05/30/2025 9:00 AM Addendum Lyrica 75mg twice a day for prevention of migraines. Try adding in supplements noted below If in 4 weeks no change, reach out. We can try cymbalta or increase lyrica Take over the counter for breakthrough migraines Follow up in 6 months Headache Preventive Treatment: Please keep in mind that it takes 4-6 weeks for the medication to start working well and 2-3 months at the appropriate dose before deciding if it will be useful or not. If it is not helping at all by this time, then we will discuss other medications to try. Supplements may take 3-6 months until you see full effect. Natural supplements: Try first: Magnesium Oxide 500 mg at bed (take for two weeks and then add B2) Try second: Vitamin B2- 200 mg twice a day Coenzyme Q10 300 mg in AM Feverfew 50 mg twice a day Vitamins and herbs that show potential Magnesium: Magnesium (250 mg twice a day or 500 mg at bed) has a relaxant effect on smooth muscles such as blood vessels. Individuals suffering from frequent or daily headache usually have low magnesium levels which can be increase with daily supplementation of 400-750 mg. Three trials found 40-90% average headache reduction when used as a preventative. Magnesium also demonstrated the benefit in menstrually related migraine. Magnesium is part of the messenger system in the serotonin cascade and it is a good muscle relaxant. It is also useful for constipation which can be a side effect of other medications used to treat migraine. Good sources include nuts, whole grains, and tomatoes. Magnesium comes in many different forms: Magnesium glycinate is a good choice for those with a sensitive stomach who have gastrointestinal side effects such as diarrhea with other forms of magnesium. It is anecdotally also helpful with anxiety and sleep. Magnesium threonate also has low risk of gastrointestinal side effects and anecdotally helpful with cognitive function and brain fog symptoms. Magnesium malate has low gastrointestinal side effects and is reportedly more energizing and anecdotally often helpful in fibromyalgia and chronic fatigue syndrome. Magnesium citrate is one of the most studied, popular, and well-absorbed forms of magnesium. It can also be mixed easily with liquids if you can't take pills. However, it comes with a higher risk of diarrhea and gastrointestinal side effects, although this could be helpful for those with constipation. Magnesium oxide is also well studied, cheap, and often used for heartburn and indigestion. However, it is not well absorbed and can have some laxative side effects as well, so can also be helpful for constipation. Riboflavin (vitamin B 2) 200 mg twice a day. This vitamin assists nerve cells in the production of ATP a principal energy storing molecule. It is necessary for many chemical reactions in the body. There have been at least 3 clinical trials of riboflavin using 400 mg per day all of which suggested that migraine frequency can be decreased. All 3 trials showed significant improvement in over half of migraine sufferers. The supplement is found in bread, cereal, milk, meat, and poultry. Most Americans get more riboflavin than the recommended daily allowance, however riboflavin deficiency is not necessary for the supplements to help prevent headache. Feverfew: Feverfew is a common garden herb [place] to [place] and popular in [facility] as a treatment for disorders typically controlled by aspirin. The mechanism of action is unknown but is believed to be related to a chemical called parthenolide which helps the body use serotonin more effectively. Serotonin helps prevent migraine and assists with resolution when it occurs. Parthenolide also inhibits the release of histamine which is linked to pain and inflammation. Consistency of active ingredients in different products can be a problem. Some formulations don't have the active ingredient (parthenolide) that prevents migraine. A parthenolide content of 0.2% is generally recommended. Typical dosage is one capsule 3 times a day. Coenzyme Q10: This is present in almost all cells in the body and is critical component for the conversion of energy. Recent studies have shown that a nutritional supplement of CoQ10 can reduce the frequency of migraine attacks by improving the energy production of cells as with riboflavin. Doses of 150 mg twice a day have been shown to be effective. Melatonin: Increasing evidence shows correlation between melatonin secretion and headache conditions. Melatonin supplementation has decreased headache intensity and duration. It is widely used as a sleep aid. Sleep is natures way of dealing with migraine. A dose of 3 mg is recommended to start for headaches including cluster headache. Higher doses up to 15 mg has been reviewed for use in Cluster headache and have been used. The rationale behind using melatonin for cluster is that many theories regarding the cause of Cluster headache center around the disruption of the normal circadian rhythm in the brain. This helps restore the normal circadian rhythm. Amy: Amy has a small amount of antihistamine and anti-inflammatory action which may help headache. It is primarily used for nausea and may aid in the absorption of other medications. HEADACHE DIET: Foods and beverages which may trigger migraine Note that only 20% of headache patients are food sensitive. You will know if you are food sensitive if you get a headache consistently 20 minutes to 2 hours after eating a certain food. Only cut out a food if it causes headaches, otherwise you might remove foods you enjoy! What matters most for diet is to eat a well balanced healthy diet full of vegetables and low fat protein, and to not miss meals. Chocolate, other sweets ALL cheeses except cottage and cream cheese Dairy products, yogurt, sour cream, ice cream Liver Meat extracts (Bovril, Marmite, meat tenderizers) Meats or fish which have undergone aging, fermenting, pickling or smoking. These include: Hotdogs,salami,Lox,sausage, mortadellas,smoked salmon, pepperoni, Pickled garcia Pods of broad arreola (Armenian beans, Bahamian pea pods, Tamazight (dayo) beans, zelaya and navy beans Ripe avocado, ripe banana Yeast extracts or active yeast preparations such as Martinez's or Giuliana's (commercial bakes goods are permitted) Tomato based foods, pizza (lasagna, etc.) MSG (monosodium glutamate) is disguised as many things; look for these common aliases: Monopotassium glutamate Autolysed yeast Hydrolysed protein Sodium caseinate ?flavorings? ?all natural preservatives" Nutrasweet Avoid all other foods that convincingly provoke headaches. Headache Prevention Strategies: 1. Maintain a headache diary; learn to identify and avoid triggers. Common triggers include: Emotional triggers: Emotional/Upset family or friends Emotional/Upset occupation Business reversal/success Anticipation anxiety Crisis-serious Post-crisis periodNew job/position Physical triggers: Vacation Day Weekend Strenuous Exercise High Altitude Location New Move Day Physical Illness Oversleep/Not enough sleep Weather changes Light: Photophobia or light sesnitivity treatment involves a balance between desensitization and reduction in overly strong input. Use dark polarized glasses outside, but not inside. Avoid bright or fluorescent light, but do not dim environment to the point that going into a normally lit room hurts. Consider FL-41 tint lenses, which reduce the most irritating wavelengths without blocking too much light. These can be obtained at [employer] or [employer] Foods: see list above. 2. Limit use of acute treatments (wxmt-ved-wyutxhq medications, triptans, etc.) to no more than 2 days per week or 10 days per month to prevent medication overuse headache (rebound headache). 3. Follow a regular schedule (including weekends and holidays): Don't skip meals. Eat a balanced diet. 8 hours of sleep nightly. Minimize stress. Exercise 30 minutes per day. Being overweight is associated with a 5 times increased risk of chronic migraine. Keep well hydrated and drink 6-8 glasses of water per day. 4. Initiate non-pharmacologic measures at the earliest onset of your headache. Rest and quiet environment. Relax and reduce stress. Jxhwrfm5Accer is a free michael that can instruct you on some simple relaxtion and breathing techniques. Http://Amor[employer]te is a free website that provides teaching videos on relaxation. Also, there are many apps that can be downloaded for ?mindful? relaxation. An michael called YOGA NIDRA will help walk you through mindfulness. Cold compresses. 5. Don't wait!! Take the maximum allowable dosage of prescribed medication at the first sign of migraine. 6. Compliance: Take prescribed medication regularly as directed and at the first sign of a migraine. 7. Communicate: Call your physician when problems arise, especially if your headaches change, increase in frequency/severity, or become associated with neurological symptoms (weakness, numbness, slurred speech, etc.). 8. Headache/pain management therapies: Consider various complementary methods, including medication, behavioral therapy, psychological counselling, biofeedback, massage therapy, acupuncture, dry needling, and other modalities. Such measures may reduce the need for medications. Counseling for pain management, where patients learn to function and ignore/minimize their pain, seems to work very well. 9. Recommend changing family's attention and focus away from patient's headaches. Instead, emphasize daily activities. If first question of day is 'How are your headaches/Do you have a headache today?', then patient will constantly think about headaches, thus making them worse. Goal is to re-direct attention away from headaches, toward daily activities and other distractions. 10. Helpful Websites: www.AmericanHeadacheSociety.org www.migrainetrust.org www.headaches.org www.migraine.org.uk www.achenet.org 11. HEADACHE EXPECTATIONS: There are many types of headaches, and only a rare few in which complete relief can be expected. In general, there is no cure for headache, especially migraine based headaches. There is nothing available that completely prevents headaches from occurring, breaking through, or having periodic flare-ups and fluctuations. Regardless of what you are using on a daily basis for prevention, episodic headaches should still be expected, and periods where frequency may escalate and fluctuate are unavoidable. There is no quick fix for most headaches. Furthermore, the longer you have had high frequency headaches (such as chronic daily headache), the longer it will likely take to expect any improvement. In fact, some people will never improve, regardless of how many medications or other treatments we try. Our treatment strategy is to evaluate for possible causes of your headache, although testing is usually always normal, even in cases of daily continuous headaches for years. Most types of headache such as migraine are electrical brain disorders (similar to how epilepsy is an electrical brain disorders). Therefore, there is no testing that will reveal this "dysfunctional electrical circuitry" such on MRI, or other testing. We try to find a medication that may help lessen the frequency and/or severity of your headaches. The goal is not to completely stop them from happening, although if that happens, great! Different people respond to different medications, and some people just don't respond to anything, so it's usually a matter of trying different options. We can not predict if or when exactly you will respond to a treatment that we provide. Preventive headache medications take 4-6 weeks to start working, and 2-3 months to see full effect, assuming you reach an effective dose. Therefore, calling or messaging frequently because you have a headache flare prior to the 3 month alexander is unlikely to change anything, and unfortunately there is nothing available that will expedite this, so please try to avoid this. Our recommendation will generally be to give it adequate time first. If you are unable to wait it out for medications to work, we can also try IV infusions for some temporary relief. O In general, the best that preventive medications or other treatments (including Botox) are able to offer in migraine management (variable in other headache types) is a 50% improvement in frequency and/or severity of headache. That is our goal, and any additional benefit is considered a bonus. Some people do significantly better than this, others do not get close to this. Therefore, if your headaches are not improving by at least 3 months on your preventive strategy, contact us and we can discuss further adjustments. Keep in mind that complete headache cure is not a realistic expectation. Our Team: The nursing staff, and medical assistants are a major part of YOUR TREATMENT TEAM and will be handling your phone calls, [employer] Messages and inquiries, if any. Unless explicitly told otherwise at the time of your office visit, your study results and ensuing treatment plans will be released via [employer] and discussed during your follow-up appointment. MyChart: Please ask the schedulers to give you an activation code. The main way of communication is by [employer] rather than phone lines, so if you have not signed up, please do so. [employer] is also the way that you can review your labs and testing. We are not able to contact everyone to tell them results are normal. If you do not hear back from us regarding testing you have had, it should be considered normal or within normal range. If you have any questions about the results, you are free to message us. [employer] is meant for simple questions regarding medications, possible side effects, or other simple straight forward questions in limited sentences, rather than multiple paragraphs of discussion. [employer] is not meant for, or efficient for these complex questions, extensive questions, extensive medication adjustments, complex new symptoms or concerns. These issues beyond simple questions require a follow up visit with myself, one of our physician assistants, nurse practitioners, or a Virtual Visit via computer or smart phone, as detailed further down. Refills: Please pay attention to when your refills will need to be renewed. Due to the volume of phone calls daily, this could potentially take a few days, although we certainly try to honor your refill requests as soon as we can. You should call at least 1 week in advance of needing a refill to ensure you do not run out of medication. Keep in mind that refill requests on Fridays may not be filled until the following week. In regards to blood work, testing, and radiology reports these are released automatically to the patients. We do not comment on most testing on [employer] in a message or commentary unless there is a concern. You will not receive a message from me of the result unless there is a specific concern of the result I need you to address further in care with us or your primary medical team. Make sure to check your my chart email or michael. As an international referral center for syncope, autonomic dysfunction, general neurology, headache care, neuromuscular disease, and other related conditions, seeing patients from across the world, we do not have the resource of time or staffing to address inquiries for accommodations. As such, we do not provide or complete requests for work accommodations, FMLA, disability, or other such forms. We recommend seeking guidance through your primary care provider for these requests. We are happy to provide our office notes from your visits and other tests or evaluations performed through our clinic, which can be made available upon request to assist you with this process. Allergies As of Date: 05/30/2025 (No Known Allergies) Date Reviewed: 05/30/2025 Reviewed by: Kasey Hirsch PA-C - Fully Assessed Reason for Visit: Follow Up [171] Cmt: Vestibular migraine Dizziness Cervicalgia Nonintractable episodic headache, unspecified headache type History of cerebellar stroke History of stroke Primary Visit Diagnosis:Vestibular migraine [G43.809] Other Visit Diagnoses:Dizziness [R42] Nonintractable episodic headache, unspecified headache type [R51.9] History of cerebellar stroke [Z86.73] Cervicalgia [M54.2] Order(s):pregabalin (LYRICA) 75 mg capsuleTake 1 capsule by mouth two times a day for 180 days.Disp: 60 capsuleRfl: 5 Prescriptions as of 05/30/2025 - pregabalin (LYRICA) 75 mg capsule Take 1 capsule by mouth two times a day for 180 days. - meloxicam (MOBIC) 15 mg tablet [...] twice daily. Problem List As Of Date 05/30/2025 Noted Resolved Meniere disease [H81.09] 09/04/2021 Osteopenia [M85.80] Overactive bladder [N32.81] Prediabetes [R73.03] Other instructions from your clinician: Lyrica 75mg twice a day for prevention of migraines. Try adding in supplements noted below If in 4 weeks no change, reach out. We can try cymbalta or increase lyrica Take over the counter for breakthrough migraines Follow up in 6 months Headache Preventive Treatment: Please keep in mind that it takes 4-6 weeks for the medication to start working well and 2-3 months at the appropriate dose before deciding if it will be useful or not. If it is not helping at all by this time, then we will discuss other medications to try. Supplements may take 3-6 months until you see full effect. Natural supplements: Try first: Magnesium Oxide 500 mg at bed (take for two weeks and then add B2) Try second: Vitamin B2- 200 mg twice a day Coenzyme Q10 300 mg in AM Feverfew 50 mg twice a day Vitamins and herbs that show potential Magnesium: Magnesium (250 mg twice a day or 500 mg at bed) has a relaxant effect on smooth muscles such as blood vessels. Individuals suffering from frequent or daily headache usually have low magnesium levels which can be increase with daily supplementation of 400-750 mg. Three trials found 40-90% average headache reduction when used as a preventative. Magnesium also demonstrated the benefit in menstrually related migraine. Magnesium is part of the messenger system in the serotonin cascade and it is a good muscle relaxant. It is also useful for constipation which can be a side effect of other medications used to treat migraine. Good sources include nuts, whole grains, and tomatoes. Magnesium comes in many different forms: Magnesium glycinate is a good choice for those with a sensitive stomach who have gastrointestinal side effects such as diarrhea with other forms of magnesium. It is anecdotally also helpful with anxiety and sleep. Magnesium threonate also has low risk of gastrointestinal side effects and anecdotally helpful with cognitive function and brain fog symptoms. Magnesium malate has low gastrointestinal side effects and is reportedly more energizing and anecdotally often helpful in fibromyalgia and chronic fatigue syndrome. Magnesium citrate is one of the most studied, popular, and well-absorbed forms of magnesium. It can also be mixed easily with liquids if you can't take pills. However, it comes with a higher risk of diarrhea and gastrointestinal side effects, although this could be helpful for those with constipation. Magnesium oxide is also well studied, cheap, and often used for heartburn and indigestion. However, it is not well absorbed and can have some laxative side effects as well, so can also be helpful for constipation. Riboflavin (vitamin B 2) 200 mg twice a day. This vitamin assists nerve cells in the production of ATP a principal energy storing molecule. It is necessary for many chemical reactions in the body. There have been at least 3 clinical trials of riboflavin using 400 mg per day all of which suggested that migraine frequency can be decreased. All 3 trials showed significant improvement in over half of migraine sufferers. The supplement is found in bread, cereal, milk, meat, and poultry. Most Americans get more riboflavin than the recommended daily allowance, however riboflavin deficiency is not necessary for the supplements to help prevent headache. Feverfew: Feverfew is a common garden herb [place] to [place] and popular in [place] as a treatment for disorders typically controlled by aspirin. The mechanism of action is unknown but is believed to be related to a chemical called parthenolide which helps the body use serotonin more effectively. Serotonin helps prevent migraine and assists with resolution when it occurs. Parthenolide also inhibits the release of histamine which is linked to pain and inflammation. Consistency of active ingredients in different products can be a problem. Some formulations don't have the active ingredient (parthenolide) that prevents migraine. A parthenolide content of 0.2% is generally recommended. Typical dosage is one capsule 3 times a day. Coenzyme Q10: This is present in almost all cells in the body and is critical component for the conversion of energy. Recent studies have shown that a nutritional supplement of CoQ10 can reduce the frequency of migraine attacks by improving the energy production of cells as with riboflavin. Doses of 150 mg twice a day have been shown to be effective. Melatonin: Increasing evidence shows correlation between melatonin secretion and headache conditions. Melatonin supplementation has decreased headache intensity and duration. It is widely used as a sleep aid. Sleep is natures way of dealing with migraine. A dose of 3 mg is recommended to start for headaches including cluster headache. Higher doses up to 15 mg has been reviewed for use in Cluster headache and have been used. The rationale behind using melatonin for cluster is that many theories regarding the cause of Cluster headache center around the disruption of the normal circadian rhythm in the brain. This helps restore the normal circadian rhythm. Amy: Amy has a small amount of antihistamine and anti-inflammatory action which may help headache. It is primarily used for nausea and may aid in the absorption of other medications. HEADACHE DIET: Foods and beverages which may trigger migraine Note that only 20% of headache patients are food sensitive. You will know if you are food sensitive if you get a headache consistently 20 minutes to 2 hours after eating a certain food. Only cut out a food if it causes headaches, otherwise you might remove foods you enjoy! What matters most for diet is to eat a well balanced healthy diet full of vegetables and low fat protein, and to not miss meals. Chocolate, other sweets ALL cheeses except cottage and cream cheese Dairy products, yogurt, sour cream, ice cream Liver Meat extracts (Bovril, Marmite, meat tenderizers) Meats or fish which have undergone aging, fermenting, pickling or smoking. These include: Hotdogs,salami,Lox,sausage, mortadellas,smoked salmon, pepperoni, Pickled garcia Pods of broad arreola (Armenian beans, Bahamian pea pods, Tamazight (dayo) beans, zelaya and navy beans Ripe avocado, ripe banana Yeast extracts or active yeast preparations such as Martinez's or Giuliana's (commercial bakes goods are permitted) Tomato based foods, pizza (lasagna, etc.) MSG (monosodium glutamate) is disguised as many things; look for these common aliases: Monopotassium glutamate Autolysed yeast Hydrolysed protein Sodium caseinate ?flavorings? ?all natural preservatives" Nutrasweet Avoid all other foods that convincingly provoke headaches. Headache Prevention Strategies: 1. Maintain a headache diary; learn to identify and avoid triggers. Common triggers include: Emotional triggers: Emotional/Upset family or friends Emotional/Upset occupation Business reversal/success Anticipation anxiety Crisis-serious Post-crisis periodNew job/position Physical triggers: Vacation Day Weekend Strenuous Exercise High Altitude Location New Move Menstrual Day Physical Illness Oversleep/Not enough sleep Weather changes Light: Photophobia or light sesnitivity treatment involves a balance between desensitization and reduction in overly strong input. Use dark polarized glasses outside, but not inside. Avoid bright or fluorescent light, but do not dim environment to the point that going into a normally lit room hurts. Consider FL-41 tint lenses, which reduce the most irritating wavelengths without blocking too much light. These can be obtained at [employer] or [employer] Foods: see list above. 2. Limit use of acute treatments ([id number] medications, triptans, etc.) to no more than 2 days per week or 10 days per month to prevent medication overuse headache (rebound headache). 3. Follow a regular schedule (including weekends and holidays): Don't skip meals. Eat a balanced diet. 8 hours of sleep nightly. Minimize stress. Exercise 30 minutes per day. Being overweight is associated with a 5 times increased risk of chronic migraine. Keep well hydrated and drink 6-8 glasses of water per day. 4. Initiate non-pharmacologic measures at the earliest onset of your headache. Rest and quiet environment. Relax and reduce stress. [id number] is a free michael that can instruct you on some simple relaxtion and breathing techniques. Http://[employer] is a free website that provides teaching videos on relaxation. Also, there are many apps that can be downloaded for ?mindful? relaxation. An michael called [employer]ogo[employer]ix will help walk you through mindfulness. Cold compresses. 5. Don't wait!! Take the maximum allowable dosage of prescribed medication at the first sign of migraine. 6. Compliance: Take prescribed medication regularly as directed and at the first sign of a migraine. 7. Communicate: Call your physician when problems arise, especially if your headaches change, increase in frequency/severity, or become associated with neurological symptoms (weakness, numbness, slurred speech, etc.). 8. Headache/pain management therapies: Consider various complementary methods, including medication, behavioral therapy, psychological counselling, biofeedback, massage therapy, acupuncture, dry needling, and other modalities. Such measures may reduce the need for medications. Counseling for pain management, where patients learn to function and ignore/minimize their pain, seems to work very well. 9. Recommend changing family's attention and focus away from patient's headaches. Instead, emphasize daily activities. If first question of day is 'How are your headaches/Do you have a headache today?', then patient will constantly think about headaches, thus making them worse. Goal is to re-direct attention away from headaches, toward daily activities and other distractions. 10. Helpful Websites: www.AmericanHeadacheSociety.org www.migrainetrust.org www.headaches.org www.migraine.org.uk www.achenet.org 11. HEADACHE EXPECTATIONS: There are many types of headaches, and only a rare few in which complete relief can be expected. In general, there is no cure for headache, especially migraine based headaches. There is nothing available that completely prevents headaches from occurring, breaking through, or having periodic flare-ups and fluctuations. Regardless of what you are using on a daily basis for prevention, episodic headaches should still be expected, and periods where frequency may escalate and fluctuate are unavoidable. There is no quick fix for most headaches. Furthermore, the longer you have had high frequency headaches (such as chronic daily headache), the longer it will likely take to expect any improvement. In fact, some people will never improve, regardless of how many medications or other treatments we try. Our treatment strategy is to evaluate for possible causes of your headache, although testing is usually always normal, even in cases of daily continuous headaches for years. Most types of headache such as migraine are electrical brain disorders (similar to how epilepsy is an electrical brain disorders). Therefore, there is no testing that will reveal this "dysfunctional electrical circuitry" such on MRI, or other testing. We try to find a medication that may help lessen the frequency and/or severity of your headaches. The goal is not to completely stop them from happening, although if that happens, great! Different people respond to different medications, and some people just don't respond to anything, so it's usually a matter of trying different options. We can not predict if or when exactly you will respond to a treatment that we provide. Preventive headache medications take 4-6 weeks to start working, and 2-3 months to see full effect, assuming you reach an effective dose. Therefore, calling or messaging frequently because you have a headache flare prior to the 3 month alexander is unlikely to change anything, and unfortunately there is nothing available that will expedite this, so please try to avoid this. Our recommendation will generally be to give it adequate time first. If you are unable to wait it out for medications to work, we can also try IV infusions for some temporary relief. O In general, the best that preventive medications or other treatments (including Botox) are able to offer in migraine management (variable in other headache types) is a 50% improvement in frequency and/or severity of headache. That is our goal, and any additional benefit is considered a bonus. Some people do significantly better than this, others do not get close to this. Therefore, if your headaches are not improving by at least 3 months on your preventive strategy, contact us and we can discuss further adjustments. Keep in mind that complete headache cure is not a realistic expectation. Our Team: The nursing staff, and medical assistants are a major part of YOUR TREATMENT TEAM and will be handling your phone calls, [employer] Messages and inquiries, if any. Unless explicitly told otherwise at the time of your office visit, your study results and ensuing treatment plans will be released via [employer] and discussed during your follow-up appointment. MyChart: Please ask the schedulers to give you an activation code. The main way of communication is by [employer] rather than phone lines, so if you have not signed up, please do so. [employer] is also the way that you can review your labs and testing. We are not able to contact everyone to tell them results are normal. If you do not hear back from us regarding testing you have had, it should be considered normal or within normal range. If you have any questions about the results, you are free to message us. [employer] is meant for simple questions regarding medications, possible side effects, or other simple straight forward questions in limited sentences, rather than multiple paragraphs of discussion. [employer] is not meant for, or efficient for these complex questions, extensive questions, extensive medication adjustments, complex new symptoms or concerns. These issues beyond simple questions require a follow up visit with myself, one of our physician assistants, nurse practitioners, or a Virtual Visit via computer or smart phone, as detailed further down. Refills: Please pay attention to when your refills will need to be renewed. Due to the volume of phone calls daily, this could potentially take a few days, although we certainly try to honor your refill requests as soon as we can. You should call at least 1 week in advance of needing a refill to ensure you do not run out of medication. Keep in mind that refill requests on Fridays may not be filled until the following week. In regards to blood work, testing, and radiology reports these are released automatically to the patients. We do not comment on most testing on [employer] in a message or commentary unless there is a concern. You will not receive a message from me of the result unless there is a specific concern of the result I need you to address further in care with us or your primary medical team. Make sure to check your my chart email or michael. As an international referral center for syncope, autonomic dysfunction, general neurology, headache care, neuromuscular disease, and other related conditions, seeing patients from across the world, we do not have the resource of time or staffing to address inquiries for accommodations. As such, we do not provide or complete requests for work accommodations, FMLA, disability, or other such forms. We recommend seeking guidance through your primary care provider for these requests. We are happy to provide our office notes from your visits and other tests or evaluations performed through our clinic, which can be made available upon request to assist you with this process. Prescriptions ordered this encounter Disp Refills Start End PREGABALIN 75 MG CAPSULE 60 c* 5 05/30/2025 11/26/2025 Route: PO Sig: Take 1 capsule by mouth two times a day for 180 days. Medications Discontinued During This Encounter Prescriptions - pregabalin (LYRICA) 75 mg capsule (Discontinued) Take 1 capsule by mouth two times a day for 30 days. Disposition: Return in about 6 months (around 11/27/2025). Follow-up and Disposition History for Encounter Date Provider Department Center 05/30/2025 [id number]-PRYKFRHKASEY HIRSCH [facility] Encounter Status:Closed by KASEY HIRSCH on 05/30/25 PROGRESS Observed: 05/30/2025 8:26 AM Status: COMPLETED Source: [facility] HNO ID: [id number] Author: KASEY HIRSCH PA-C Service: ? Author Type: Physician Executive Producer Promos Type: Progress Notes Filed: 05/30/2025 09:37 Note Text: [facility] Follow up CC: Headache Follow up Last Visit: 11/25/[address] Tucker ASSESSMENT/PLAN: 1. Vestibular migraine - ICD9: 346.80, ICD10: G43.809 (primary diagnosis) 2. Dizziness - ICD9: 780.4, ICD10: R42 3. Cervicalgia - ICD9: 723.1, ICD10: M54.2 4. Nonintractable episodic headache, unspecified headache type - ICD9: 784.0, ICD10: R51.9 Patient overall doing well when on Lyrica 75mg BID. Unfortunately, pharmacy reportedly delayed refill and was out of meds for 5 days. During that time headaches and dizziness returned. Improving again now that on 75mg BID. Explained that may take another week of being on meds to achieve prior headache/dizziness control. Pt without SEs on meds. Reviewed 2019 MRI brain with pt. As no new symptoms do not feel need for new imaging at this time. Rx provided for Lyrica 75mg BID #90. Requesting renal fxn from PCP office. 5. History of cerebellar stroke - ICD9: V12.54, ICD10: Z86.73 6. History of stroke - ICD9: V12.54, ICD10: Z86.73 Noted on piror MRI in 2020. Uncertain to what impact this has on dizziness even this many years later. No new focal deficits and stable neuro exam. Continue ASA. BP goal <140/90. Glucose goal <140. On Crestor through PCP who is following lipids. Rafy Tucker MD Today: PT is here for headache/migraine follow up. Last seen by Dr. Tucker on 11/25/24 for migraine. On lyrica 75mg bid and felt it helped with sxs. 2 BAKER a week and dizziness improved. No changes in regimen. Since last visit headaches have been stable. Notes that she has maybe 1 flareup of her vestibular migraine a month, takes Tylenol for this. However, has a constant sense of dizziness in the background and most of the time. Described as an unsteadiness, lightheadedness and sense of movement. Exacerbated by quickly turning her head. Does note that when she runs out of the Lyrica she does have flareups of vestibular migraines but otherwise are well-controlled. Current Headache treatment Preventative: Lyrica 75mg bid Abortive: Tylenol Medications effective? sometimes # of doses of abortive medications per month: 1 Total headache days per month: 1 per month Total headache attacks per month: 1 per month Headache free days: Yes Duration of attacks: few hours Severity of headaches? mild Location: Frontal. Aura: None Accompanying symptoms: nausea, vertigo. Quality:aching . Worse with activity: Yes Pain today: 0/10 Prior Therapies Lyrica Wellbutrin The patient's prior records were reviewed including and lab testing, imaging, and procedures done since their last visit with me. Review of symptoms including constitutional, eyes, ENT, neck, respiratory, cardiovascular, GI, , musculoskeletal, hematologic, oncologic, endocrine, and psychiatric categories is unchanged. No new details in the family history or social history were offered by the patient. PAST MEDICAL HISTORY Diagnosis Date Arthritis Osteopenia Overactive bladder Prediabetes Primary osteoarthritis of right shoulder Rotator cuff arthropathy, right Stroke (HCC) had TIA (unsure when) showed on an MRI Vertigo Dr. Tucker PAST SURGICAL HISTORY Procedure Laterality Date ABDOMINAL SURGERY HX DELIVERY ONLY , low transverse x2 COLONOSCOPY 2015-repeat in 5 years. COLONOSCOPY 11/06/2021 repeat in 5 years DILATION AND CURETTAGE DXAND/THER NONOBSTETRIC 1985 Dilation AND curettage PAST SURGICAL HISTORY OF aspirated breast cyst TUBAL LIGATION ALLERGIES No Known Allergies Current Medications: meloxicam (MOBIC) 15 mg tablet Take 7.5 mg by mouth once daily. d-mannose 500 mg cap Take by mouth. rosuvastatin (CRESTOR) 5 mg tablet Take 1 [...] Take 1 tablet by mouth twice daily. pregabalin (LYRICA) 75 mg capsule Take 1 capsule by mouth two times a day for 180 days. Studies to Review: No New Health Issues: No New Social History: No New Family History: No REVIEW OF SYSTEMS: GENERAL:No weight loss, malaise or fevers. HEENT:no changes to hearing or vision NECK:negative for neck pain, swelling. RESPIRATORY: Negative for cough, wheezing or shortness of breath. CARDIOVASCULAR: Negative for chest pain, leg swelling or palpitations. GASTROINTESTINAL: Negative for abdominal discomfort, blood in stools or black stools or change in bowel habits GENITOURINARY: No history of dysuria, frequency or incontinence MUSKULOSKELETAL: Negative for joint pain or swelling, back pain or muscle pain. SKIN:Negative for lesions, rash, and itching. HEMATOLOGIC/LYMPHATIC/IMMUNOLOGIC:Negative for prolonged bleeding, bruising easily or swollen nodes. ENDOCRINE: Negative for cold or heat intolerance, polyuria, polydipsia NEUROLOGIC:See HPI PHYSICAL EXAMINATION: BP 120/76 Pulse 70 Resp 16 Wt 64 kg (141 lb) SpO2 97% BMI 24.98 kg/m? General: well appearing, in no acute distress, alert, HEENT: Normocephalic/atraumatic., Skin: Color, texture, turgor normal. No rashes or lesions, Lungs: Breathing comfortably, Neurological Examination: Cognition: The patient is alert and oriented times three Lucid and organized in conversation Able to tell detailed medical hx Speech is Normal in fluency volume and clarity Content and Syntax: Normal Comprehension: Normal, able to follow several step commands Cranial Nerves: Pupils are equal and reactive to light. Pupils normal in size Extraocular movements are grossly intact Good saccades and pursuits No nystagmus Hearing intact Good upgaze Visual aldridge are full to confrontation. Facial, motor and sensory exam is symmetric Equal v1,V2, V3 Tongue is in midline. No tongue fasciculation. Palate is upgoing bilaterally SCM and trapezius are full. Shoulder shrug intact Normal tone and strength. Normal coordination. DTRs are intact and symmetric bilaterally. Normal gait. Impression: ASSESSMENT/PLAN: 1. Dizziness - ICD9: 780.4, ICD10: R42 (primary diagnosis) 2. Nonintractable episodic headache, unspecified headache type - ICD9: 784.0, ICD10: R51.9 3. Vestibular migraine - ICD9: 346.80, ICD10: G43.809 Migraines are well-controlled, has maybe 1 flareup a month on Lyrica 75 mg twice daily. Does note that when she has difficulty getting a refill she will have flareups if she misses her medication. However, her main concern is having a constant sense of dizziness all the time, has difficulty describing it. Describes it as a lightheaded, movement sensation as well as being unsteady. Worsens with certain movements. Notes that she did have vestibular testing many years ago before she moved to [place] and does not want to repeat this at this time. Exam is otherwise reassuring no peripheral abnormality found, reflexes are normal. Discussed changing medications, including starting Cymbalta versus increasing Lyrica to 100 mg twice a day versus trying supplements. Patient elects to retry supplements, will start 1 at a time, if this is not beneficial may increase Lyrica to 100 mg twice daily or start Cymbalta. 4. History of cerebellar stroke - ICD9: V12.54, ICD10: Z86.73 5. Cervicalgia - ICD9: 723.1, ICD10: M54.2 No new neurologic symptoms that would warrant additional workup at this time. Compliant with aspirin and statin medication, follow with primary care for risk factor management. Plan: All options for treatment discussed. Preventative: Lyrica 75 mg twice daily Abortive: [id number] Follow-up: 6 months I spent a total of 30 minutes on the date of the service which included preparing to see the patient, [id number] patient care, completing clinical documentation, obtaining and/or reviewing separately obtained history, performing a medically appropriate examination, counseling and educating the patient/family/caregiver, and ordering medications, tests, or procedures. Kasey Hirsch PA-C General Neurology [address] [place] [address]. [id number] Appointment: [phone] CNCO Observed: 12/22/2024 12:00 AM Status: COMPLETED Source: [facility] Letter Text PROGRESS Observed: 11/25/2024 4:53 PM Status: COMPLETED Source: [facility] HNO ID: [id number] Author: RAFY TUCKER JR, MD Service: ? Author Type: Physician Type: Progress Notes Filed: 11/25/2024 17:30 Note Text: ESTABLISHED PATIENT VISIT CHIEF COMPLAINT: Follow up HISTORY OF PRESENT ILLNESS: Mark Melchor is a 74 year old female, BMI 25.44 kg/m2 with a PMH significant for and per last office visit of 06/22/24: 1. Vestibular migraine - ICD9: 346.80, ICD10: G43.809 (primary diagnosis) 2. Dizziness - ICD9: 780.4, ICD10: R42 3. Cervicalgia - ICD9: 723.1, ICD10: M54.2 4. Nonintractable episodic headache, unspecified headache type - ICD9: 784.0, ICD10: R51.9 Patient with some worsening of her dizziness and headache over the last month or so, happening a few times a week. Dizziness lasting for few minutes at a time but then the headache can last upwards of a few hours. Triggered by bright lights and sometimes walking outside. Describes dizziness as a sensation of movement, no room spinning or lightheadedness. Symptoms are consistent with vestibular migraines as more than half of the episodes of dizziness are accompanied with a headache as well as blurred vision and nausea. Is currently on Lyrica 75 mg, notes it was helpful at first. Discussed increasing this to twice daily patient is amenable, discussed common side effects and patient agrees and understands. Notes that she was on it twice daily before for arthritis pain and notes she tolerated this increase well. No new symptoms thatwould warrant additional workup at this time. Encouraged conservative therapy as well. 5. History of cerebellar stroke - ICD9: V12.54, ICD10: Z86.73 6. History of stroke - ICD9: V12.54, ICD10: Z86.73 No new neurologic symptoms that would warrant additional workup at this time. Patient compliant with aspirin and cholesterol management, following with primary care for risk factor management. States initially had difficulties getting Lyrica filled, but now on 75mg BID. Feels the increase dose did help. Did run out due to pharmacy not filling the Rx - during that time headaches increased to daily and had AM dizziness. Since back on BID dosing, maybe 2 headaches per week - does not last all day. Dizziness rare - can occur with headache or independent. When on twice daily before running out had no headaches or dizziness. No new stroke symptoms. Still taking ASA daily. BP mildly elevated today but stable at present. REVIEW OF SYSTEMS GENERAL:No weight loss, malaise [...] - EXCEPT that as per HPI above. LAB/IMAGING: Those performed since patient's last visit [...] IA (no units) Date Value 04/16/2020 Negative Requesting labs from PCP office. MEDICATIONS: pregabalin (LYRICA) 75 mg capsule Take 1 capsule by mouth two times a day for 90 days. meloxicam (MOBIC) 15 mg tablet Take 7.5 mg by mouth once daily. (Patient taking differently: Take 7.5 mg by mouth two times a day.) d-mannose 500 mg cap Take by mouth. rosuvastatin (CRESTOR) 5 mg tablet Take 1 [...] Never Smokeless tobacco: Never Vaping Use Vaping status: Never Used Substance Use Topics Alcohol use: Yes Comment: 1 drink every 2 weeks Drug use: No PHYSICAL EXAMINATION BP 147/83 (BP Site: Left Arm, BP Position: Sitting) Pulse 61 Wt 65.1 kg (143 lb 9.6 oz) SpO2 100% BMI 25.44 kg/m? GENERAL EXAM: General appearance: NAD, pleasant. HEENT: NC/AT, nasal congestion absent, no oral lesions, membranes moist. NECK: ROM nml. Lungs: CTA bilaterally. CV: RRR nl S1, S2, Extr: No cyanosis, clubbing or edema. NEUROLOGICAL EXAM: General: Awake, alert, oriented x3 (person,place,time), fluent, no dysarthria; comprehension, naming, repetition intact. [...] PITER, HTS intact. No tremors. Sensation: Light touch intact throughout. No evidence of neglect. Gait: Stable with normal stride and arm swing. Assessment and Plan: ASSESSMENT/PLAN: 1. Vestibular migraine - ICD9: 346.80, ICD10: G43.809 (primary diagnosis) 2. Dizziness - ICD9: 780.4, ICD10: R42 3. Cervicalgia - ICD9: 723.1, ICD10: M54.2 4. Nonintractable episodic headache, unspecified headache type - ICD9: 784.0, ICD10: R51.9 Patient overall doing well when on Lyrica 75mg BID. Unfortunately, pharmacy reportedly delayed refill and was out of meds for 5 days. During that time headaches and dizziness returned. Improving again now that on 75mg BID. Explained that may take another week of being on meds to achieve prior headache/dizziness control. Pt without SEs on meds. Reviewed 2020 MRI brain with pt. As no new symptoms do not feel need for new imaging at this time. Rx provided for Lyrica 75mg BID #90. Requesting renal fxn from PCP office. 5. History of cerebellar stroke - ICD9: V12.54, ICD10: Z86.73 6. History of stroke - ICD9: V12.54, ICD10: Z86.73 Noted on piror MRI in 2020. Uncertain to what impact this has on dizziness even this many years later. No new focal deficits and stable neuro exam. Continue ASA. BP goal <140/90. Glucose goal <140. On Crestor through PCP who is following lipids. Rafy Tucker MD Medical Decision Making: Problems: Moderate: 2+ stable chronic illnesses Data: Unique test result(s) reviewed: 2 Risk: Moderate: Drug management Medical Decision Making Level: 4 - Moderate PDMP website checked and validated. All prescriptions have been APPROPRIATELY filled. No suspicious activity was identified. 11/25/2024 by Rafy Tucker MD CNOV Observed: 11/25/2024 4:40 PM Status: COMPLETED Source: [facility] Office Visit (NEMBELLA) MARK MELCHOR ([id number]) 1950 F Date Time Provider Department 11/25/24 4:40 PM RAFY TUCKER JR During your visit today, we recorded the following information about you: Pulse Blood pressure Weight 61/minute 147/83 65.1 kg Lanie WigginsTHAO 11/25/2024 5:30 PM Signed 11/24/2024 PROMIS Global Health Physical Health Summary Physical health: Good Everyday physical activity, ability: Mostly Fatigue: Mild Pain level: 4 General health: Good Social activities/roles, ability: Very good Physical Health T-Score 44.9 (Good) Physical Health Percentile 31 PROMIS Global Health Mental Health Summary Quality of life: Good Mental health (mood,thinking): Good Social satisfaction: Very good Emotional problems (anxious,depressed): Sometimes Mental Health T-Score 45.8 (Good) Mental Health Percentile 34 Percentiles provide an indication of how a patient's score ranks in relation to the [place] general population. > 31st percentile is within normal limits or better *< 31st percentile is at least ? SD worse than population, which may be clinically relevant < 16th percentile is at least 1 SD worse than population and warrants attention 11/24/2024 Sleep Apnea Probability Snores loudly: Yes Tired, fatigued or sleepy in daytime: Yes Stops breathing or choking/gasping during sleep: No High blood pressure: No Sleep Apnea Probability Score: 36 (Sleep study not recommended) Rafy Tucker Jr., MD 11/25/2024 5:30 PM Signed ESTABLISHED PATIENT VISIT CHIEF COMPLAINT: Follow up HISTORY OF PRESENT ILLNESS: Mark Melchor is a 74 year old female, BMI 25.44 kg/m2 with a PMH significant for and per last office visit of 06/22/24: 1. Vestibular migraine - ICD9: 346.80, ICD10: G43.809 (primary diagnosis) 2. Dizziness - ICD9: 780.4, ICD10: R42 3. Cervicalgia - ICD9: 723.1, ICD10: M54.2 4. Nonintractable episodic headache, unspecified headache type - ICD9: 784.0, ICD10: R51.9 Patient with some worsening of her dizziness and headache over the last month or so, happening a few times a week. Dizziness lasting for few minutes at a time but then the headache can last upwards of a few hours. Triggered by bright lights and sometimes walking outside. Describes dizziness as a sensation of movement, no room spinning or lightheadedness. Symptoms are consistent with vestibular migraines as more than half of the episodes of dizziness are accompanied with a headache as well as blurred vision and nausea. Is currently on Lyrica 75 mg, notes it was helpful at first. Discussed increasing this to twice daily patient is amenable, discussed common side effects and patient agrees and understands. Notes that she was on it twice daily before for arthritis pain and notes she tolerated this increase well. No new symptoms that would warrant additional workup at this time. Encouraged conservative therapy as well. 5. History of cerebellar stroke - ICD9: V12.54, ICD10: Z86.73 6. History of stroke - ICD9: V12.54, ICD10: Z86.73 No new neurologic symptoms that would warrant additional workup at this time. Patient compliant with aspirin and cholesterol management, following with primary care for risk factor management. States initially had difficulties getting Lyrica filled, but now on 75mg BID. Feels the increase dose did help. Did run out due to pharmacy not filling the Rx - during that time headaches increased to daily and had AM dizziness. Since back on BID dosing, maybe 2 headaches per week - does not last all day. Dizziness rare - can occur with headache or independent. When on twice daily before running out had no headaches or dizziness. No new stroke symptoms. Still taking ASA daily. BP mildly elevated today but stable at present. REVIEW OF SYSTEMS GENERAL:No weight loss, malaise [...] - EXCEPT that as per HPI above. LAB/IMAGING: Those performed since patient's last visit [...] IA (no units) Date Value 04/16/2020 Negative Requesting labs from PCP office. MEDICATIONS: pregabalin (LYRICA) 75 mg capsule Take 1 capsule by mouth two times a day for 90 days. meloxicam (MOBIC) 15 mg tablet Take 7.5 mg by mouth once daily. (Patient taking differently: Take 7.5 mg by mouth two times a day.) d-mannose 500 mg cap Take by mouth. rosuvastatin (CRESTOR) 5 mg tablet Take 1 [...] Never Smokeless tobacco: Never Vaping Use Vaping status: Never Used Substance Use Topics Alcohol use: Yes Comment: 1 drink every 2 weeks Drug use: No PHYSICAL EXAMINATION BP 147/83 (BP Site: Left Arm, BP Position: Sitting) Pulse 61 Wt 65.1 kg (143 lb 9.6 oz) SpO2 100% BMI 25.44 kg/m? GENERAL EXAM: General appearance: NAD, pleasant. HEENT: NC/AT, nasal congestion absent, no oral lesions, membranes moist. NECK: ROM nml. Lungs: CTA bilaterally. CV: RRR nl S1, S2, Extr: No cyanosis, clubbing or edema. NEUROLOGICAL EXAM: General: Awake, alert, oriented x3 (person,place,time), fluent, no dysarthria; comprehension, naming, repetition intact. [...] PITER, HTS intact. No tremors. Sensation: Light touch intact throughout. No evidence of neglect. Gait: Stable with normal stride and arm swing. Assessment and Plan: ASSESSMENT/PLAN: 1. Vestibular migraine - ICD9: 346.80, ICD10: G43.809 (primary diagnosis) 2. Dizziness - ICD9: 780.4, ICD10: R42 3. Cervicalgia - ICD9: 723.1, ICD10: M54.2 4. Nonintractable episodic headache, unspecified headache type - ICD9: 784.0, ICD10: R51.9 Patient overall doing well when on Lyrica 75mg BID. Unfortunately, pharmacy reportedly delayed refill and was out of meds for 5 days. During that time headaches and dizziness returned. Improving again now that on 75mg BID. Explained that may take another week of being on meds to achieve prior headache/dizziness control. Pt without SEs on meds. Reviewed 2020 MRI brain with pt. As no new symptoms do not feel need for new imaging at this time. Rx provided for Lyrica 75mg BID #90. Requesting renal fxn from PCP office. 5. History of cerebellar stroke - ICD9: V12.54, ICD10: Z86.73 6. History of stroke - ICD9: V12.54, ICD10: Z86.73 Noted on piror MRI in 2020. Uncertain to what impact this has on dizziness even this many years later. No new focal deficits and stable neuro exam. Continue ASA. BP goal <140/90. Glucose goal <140. On Crestor through PCP who is following lipids. Rafy Tucker MD Medical Decision Making: Problems: Moderate: 2+ stable chronic illnesses Data: Unique test result(s) reviewed: 2 Risk: Moderate: Drug management Medical Decision Making Level: 4 - Moderate PDMP website checked and validated. All prescriptions have been APPROPRIATELY filled. No suspicious activity was identified. 11/25/2024 by Rafy Tucker MD Allergies As of Date: 11/25/2024 (No Known Allergies) Date Reviewed: 11/25/2024 Reviewed by: Rafy Tucker Jr., MD - Fully Assessed Reason for Visit: Established Patient [175] Cmt: No new complaints Primary Visit Diagnosis:Vestibular migraine [G43.809] Other Visit Diagnoses:Dizziness [R42] Cervicalgia [M54.2] Nonintractable episodic headache, unspecified headache type [R51.9] History of cerebellar stroke [Z86.73] History of stroke [Z86.73] Order(s):pregabalin (LYRICA) 75 mg capsuleTake 1 capsule by mouth two times a day for 180 days.Disp: 180 capsuleRfl: 1 Prescriptions as of 11/25/2024 - pregabalin (LYRICA) 75 mg capsule Take 1 capsule by mouth two times a day for 180 days. - meloxicam (MOBIC) 15 mg tablet [...] twice daily. Problem List As Of Date 11/25/2024 Noted Resolved Meniere disease [H81.09] 09/04/2021 Osteopenia [M85.80] Overactive bladder [N32.81] Prediabetes [R73.03] Prescriptions ordered this encounter Disp Refills Start End PREGABALIN 75 MG CAPSULE 180 * 1 11/25/2024 05/24/2025 Route: ORAL Sig: Take 1 capsule by mouth two times a day for 180 days. Medications Discontinued During This Encounter Prescriptions - pregabalin (LYRICA) 75 mg capsule (Discontinued) Take 1 capsule by mouth two times a day for 90 days. Disposition: Return in about 6 months (around 05/28/2025) for [facility]. Follow-up and Disposition History for Encounter Date Provider Department Center 11/25/2024 [id number] TUCKER JR [facility] Encounter Status:Closed by RAFY TUCKER on 11/25/24 PROGRESS Observed: 11/25/2024 4:34 PM Status: COMPLETED Source: [facility] ID: [id number] Author: LANIE WIGGINS LPN Service: ? Author Type: LICENSED NURSE Type: Progress Notes Filed: 11/25/2024 17:30 Note Text: 11/24/2024 PROMIS Global Health Physical Health Summary Physical health: Good Everyday physical activity, ability: Mostly Fatigue: Mild Pain level: 4 General health: Good Social activities/roles, ability: Very good Physical Health T-Score 44.9 (Good) Physical Health Percentile 31 PROMIS Global Health Mental Health Summary Quality of life: Good Mental health (mood,thinking): Good Social satisfaction: Very good Emotional problems (anxious,depressed): Sometimes Mental Health T-Score 45.8 (Good) Mental Health Percentile 34 Percentiles provide an indication of how a patient's score ranks in relation to the [place] general population. > 31st percentile is within normal limits or better *< 31st percentile is at least ? SD worse than population, which may be clinically relevant < 16th percentile is at least 1 SD worse than population and warrants attention 11/24/2024 Sleep Apnea Probability Snores loudly: Yes Tired, fatigued or sleepy in daytime: Yes Stops breathing or choking/gasping during sleep: No High blood pressure: No Sleep Apnea Probability Score: 36 (Sleep study not recommended) CNOV Observed: 06/22/2024 3:30 PM Status: COMPLETED Source: [facility] Office Visit (LOTTIE) MARK MELCHOR ([id number]) 1950 F Date Time Provider Department 06/22/24 3:30 PM KASEY HIRSCH During your visit today, we recorded the following information about you: Pulse Respiration Blood pressure Weight 69/minute 18/minute 135/75 64.5 kg Kasey Hirsch PA-C 06/22/2024 4:13 PM Signed ESTABLISHED PATIENT VISIT Last visit: 12/22/23 ASSESSMENT/PLAN: 1. Vestibular migraine - ICD9: 346.80, ICD10: G43.809 (primary diagnosis) 2. Dizziness - ICD9: 780.4, ICD10: R42 3. Cervicalgia - ICD9: 723.1, ICD10: M54.2 4. Nonintractable episodic headache, unspecified headache type - ICD9: 784.0, ICD10: R51.9 Patient's dizziness and headache stable since last appointment. Getting about 7-10 episodes a month lasting about an hour each. Notes that she usually gets a headache with the dizziness, but can have dizziness isolated. Describes an unsteady on a boat sensation, motion sickness. Patient does have history of sinus headaches in the past, but on further description possibly migraines. Has significant family history of migraines as well with her daughter and her mother. Possibly vestibular migraines contributing patient's symptoms as well, did initially improve with Lyrica 75 mg once daily. Did increase this to twice daily at last appointment, but did not notice any significant benefit so she went back down to once daily. Did discuss likelihood of vestibular migraines, discussed supplements and other conservative measures that may beneficial patient would like to try this. Information regarding supplements was given. Will continue with Lyrica 75 mg as well. No new symptoms with this, no red flag signs symptoms that would warrant additional imaging at this time. 5. History of cerebellar stroke - ICD9: V12.54, ICD10: Z86.73 No new neurologic symptoms since last appointment, patient compliant with taking her aspirin daily. Risk factors managed through primary care. Patient agreeable to treatment plan of care at this time, all questions were answered. Patient to follow-up in 6 months or sooner. Kasey Hirsch PA-C CHIEF COMPLAINT: follow up HISTORY OF PRESENT ILLNESS: Mark Melchor is a 73 year old female, There were no vitals taken for this visit. with a PMH significant for cerebellar stroke. Last seen for migraine on 12/22/23, has been stable on lyrica 75mg bid. 7-10 episodes a month, started supplements. Patient presents for follow-up for dizziness and headaches. Patient notes that since last appointment she has had some increase in her symptoms, specifically over the last month. She notes a few times a week she has been experiencing times dizziness, but at the time she gets a headache with it. Notes that it can be triggered by bright lights and sometimes when she is walking outside. The dizziness itself lasts for usually a few minutes at a time but the headache can last for hours afterwards. Sometimes associated with some nausea and some blurred vision, occasionally will see spots as well. Headache is usually frontal bilaterally, takes Tylenol without any significant benefit. Notes that she cannot take other NSAIDs because she is currently on meloxicam. Did try taking supplements but states it made her feel sick in the evening so she stopped. These episodes can happen anytime of day, no other triggers that she can think of. Does have history of motion sickness and migraines in the past. No other new concerns today. No falls since last appointment, no new neurologic symptoms, compliant with aspirin and cholesterol medication. REVIEW OF SYSTEMS GENERAL:No weight loss, malaise [...] disturbance, mood disorder and recent psychosocial stressors. HEMATOLOGIC/LYMPHATIC/IMMUNOLOGIC:Negative for prolonged bleeding, bruising easily or swollen nodes. ENDOCRINE: Negative for cold or heat intolerance, polyuria, polydipsia and goiter. The remainder of the ROS was reviewed and is negative. LAB/IMAGING: Those performed since patient's last visit have been reviewed. None since last appointment MEDICATIONS: pregabalin (LYRICA) 75 mg capsule Take 1 capsule by mouth once daily for 180 days. meloxicam (MOBIC) 15 mg tablet Take [...] Never Smokeless tobacco: Never Vaping Use Vaping status: Never Used Substance Use Topics Alcohol use: Yes Comment: 1 drink every 2 weeks Drug use: No PHYSICAL EXAMINATION BP 135/75 Pulse 69 Resp 18 Wt 64.5 kg (142 lb 3.2 oz) SpO2 95% BMI 25.19 kg/m? GENERAL EXAM: General appearance: NAD, pleasant. HEENT: NC/AT, nasal congestion absent, no oral lesions, membranes moist. NECK: No masses, supple. Lungs: Breathing comfortably Extr: Moves all extremities without difficulty Skin: Cool to touch. No rash. NEUROLOGICAL EXAM: General: Awake, alert, oriented x3 (person,place,time), speech fluent, no dysarthria; comprehension, naming, repetition intact. Short and residential memory intact. CN: PERRL, EOMI and without nystagmus, VFF to confrontation, facial sensation and strength are normal and symmetric, hearing is intact to finger rub bilaterally, palate and tongue movements are intact and symmetric. SCM and trapezius strength normal. Motor: Normal tone, bulk and strength (5/5) bilaterally (throughout extremities x4). Reflexes: 2/4 and symmetric, plantar stimulation is flexor. Coordination: FNF intact. No tremors. Sensation: No evidence of neglect. Gait: Narrow based and stable with normal stride and arm swing. Assessment and Plan: ASSESSMENT/PLAN: 1. Vestibular migraine - ICD9: 346.80, ICD10: G43.809 (primary diagnosis) 2. Dizziness - ICD9: 780.4, ICD10: R42 3. Cervicalgia - ICD9: 723.1, ICD10: M54.2 4. Nonintractable episodic headache, unspecified headache type - ICD9: 784.0, ICD10: R51.9 Patient with some worsening of her dizziness and headache over the last month or so, happening a few times a week. Dizziness lasting for few minutes at a time but then the headache can last upwards of a few hours. Triggered by bright lights and sometimes walking outside. Describes dizziness as a sensation of movement, no room spinning or lightheadedness. Symptoms are consistent with vestibular migraines as more than half of the episodes of dizziness are accompanied with a headache as well as blurred vision and nausea. Is currently on Lyrica 75 mg, notes it was helpful at first. Discussed increasing this to twice daily patient is amenable, discussed common side effects and patient agrees and understands. Notes that she was on it twice daily before for arthritis pain and notes she tolerated this increase well. No new symptoms that would warrant additional workup at this time. Encouraged conservative therapy as well. 5. History of cerebellar stroke - ICD9: V12.54, ICD10: Z86.73 6. History of stroke - ICD9: V12.54, ICD10: Z86.73 No new neurologic symptoms that would warrant additional workup at this time. Patient compliant with aspirin and cholesterol management, following with primary care for risk factor management. Patient agreeable to treatment plan of care at this time, questions were answered. Patient to follow-up in 4 to 5 months or sooner should any symptoms change or worsen. Kasey Hirsch PA-C I spent a total of 30 minutes on the date of the service which included preparing to see the patient, [id number] patient care, completing clinical documentation, obtaining and/or reviewing separately obtained history, performing a medically appropriate examination, counseling and educating the patient/family/caregiver, and ordering medications, tests, or procedures. This document has been created with the use of voice recognition technology. It may contain inaccuracies: (e.g. misspellings, inaccurate syntax or word sense) that have escaped review. 06/21/2024 PROMIS [facility] Physical Health Summary Physical health: Very good Everyday physical activity, ability: Mostly Fatigue: Mild Pain level: 4 General health: Very good Social activities/roles, ability: Very good Physical Health T-Score 47.7 (Good) Physical Health Percentile 41 PROMIS [facility] Mental Health Summary Quality of life: Very good Mental health (mood,thinking): Very good Social satisfaction: Very good Emotional problems (anxious,depressed): Rarely Mental Health T-Score 53.3 (Very Good) Mental Health Percentile 63 PROMIS Physical Function T-Score 47(Within Normal Limits) PROMIS Physical Function Percentile 38 PROMIS Pain Interference T-Score 53(Within Normal Limits) PROMIS Pain Interference Percentile 38 Percentiles provide an indication of how a patient's score ranks in relation to the [place] general population. > 31st percentile is within normal limits or better *< 31st percentile is at least ? SD worse than population, which may be clinically relevant < 16th percentile is at least 1 SD worse than population and warrants attention Kasey Hirsch PA-C 06/22/2024 3:46 PM Signed Try increasing lyrica to twice daily Follow up in 4-5 months or sooner if needed Allergies As of Date: 06/22/2024 (No Known Allergies) Date Reviewed: 06/22/2024 Reviewed by: Kasey Hirsch PA-C - Fully Assessed Reason for Visit: Follow Up [171] Primary Visit Diagnosis:Vestibular migraine [G43.809] Other Visit Diagnoses:Dizziness [R42] Cervicalgia [M54.2] Nonintractable episodic headache, unspecified headache type [R51.9] History of cerebellar stroke [Z86.73] History of stroke [Z86.73] Prescriptions as of 06/22/2024 - pregabalin (LYRICA) 75 mg capsule Take 1 capsule by mouth once daily for 180 days. - meloxicam (MOBIC) 15 mg tablet [...] twice daily. Problem List As Of Date 06/22/2024 Noted Resolved Meniere disease [H81.09] 09/04/2021 Osteopenia [M85.80] Overactive bladder [N32.81] Prediabetes [R73.03] Other instructions from your clinician: Try increasing lyrica to twice daily Follow up in 4-5 months or sooner if needed Disposition: Return in about 4 months (around 10/23/2024). Follow-up and Disposition History for Encounter Date Provider Department Center 06/22/2024 [id number]-EOGGAMWKAESY HIRSCH [facility] Encounter Status:Closed by KASEY HIRSCH on 06/22/24 PROGRESS Observed: 06/22/2024 3:28 PM Status: COMPLETED Source: [facility] HN ID: [id number] Author: KASEY HIRSCH PA-C Service: ? Author Type: Physician Executive Producer Promos Type: Progress Notes Filed: 06/22/2024 16:13 Note Text: ESTABLISHED PATIENT VISIT Last visit: 12/22/23 ASSESSMENT/PLAN: 1. Vestibular migraine - ICD9: 346.80, ICD10: G43.809 (primary diagnosis) 2. Dizziness - ICD9: 780.4, ICD10: R42 3. Cervicalgia - ICD9: 723.1, ICD10: M54.2 4. Nonintractable episodic headache, unspecified headache type - ICD9: 784.0, ICD10: R51.9 Patient's dizziness and headache stable since last appointment. Getting about 7-10 episodes a month lasting about an hour each. Notes that she usually gets a headache with the dizziness, but can have dizziness isolated. Describes an unsteady on a boat sensation, motion sickness. Patient does have history of sinus headaches in the past, but on further description possibly migraines. Has significant family history of migraines as well with her daughter and her mother. Possibly vestibular migraines contributing patient's symptoms as well, did initially improve with Lyrica 75 mg once daily. Did increase this to twice daily at last appointment, but did not notice any significant benefit so she went back down to once daily. Did discuss likelihood of vestibular migraines, discussed supplements and other conservative measures that may beneficial patient would like to try this. Information regarding supplements was given. Will continue with Lyrica 75 mg as well. No new symptoms with this, no red flag signs symptoms that would warrant additional imaging at this time. 5. History of cerebellar stroke - ICD9: V12.54, ICD10: Z86.73 No new neurologic symptoms since last appointment, patient compliant with taking her aspirin daily. Risk factors managed through primary care. Patient agreeable to treatment plan of care at this time, all questions were answered. Patient to follow-up in 6 months or sooner. Kasey Hirsch PA-C CHIEF COMPLAINT: follow up HISTORY OF PRESENT ILLNESS: Mark Melchor is a 73 year old female, There were no vitals taken for this visit. with a PMH significant for cerebellar stroke. Last seen for migraine on 12/22/23, has been stable on lyrica 75mg bid. 7-10 episodes a month, started supplements. Patient presents for follow-up for dizziness and headaches. Patient notes that since last appointment she has had some increase in her symptoms, specifically over the last month. She notes a few times a week she has been experiencing times dizziness, but at the time she gets a headache with it. Notes that it can be triggered by bright lights and sometimes when she is walking outside. The dizziness itself lasts for usually a few minutes at a time but the headache can last for hours afterwards. Sometimes associated with some nausea and some blurred vision, occasionally will see spots as well. Headache is usually frontal bilaterally, takes Tylenol without any significant benefit. Notes that she cannot take other NSAIDs because she is currently on meloxicam. Did try taking supplements but states it made her feel sick in the evening so she stopped. These episodes can happen anytime of day, no other triggers that she can think of. Does have history of motion sickness and migraines in the past. No other new concerns today. No falls since last appointment, no new neurologic symptoms, compliant with aspirin and cholesterol medication. REVIEW OF SYSTEMS GENERAL:No weight loss, malaise [...] disturbance, mood disorder and recent psychosocial stressors. HEMATOLOGIC/LYMPHATIC/IMMUNOLOGIC:Negative for prolonged bleeding, bruising easily or swollen nodes. ENDOCRINE: Negative for cold or heat intolerance, polyuria, polydipsia and goiter. The remainder of the ROS was reviewed and is negative. LAB/IMAGING: Those performed since patient's last visit have been reviewed. None since last appointment MEDICATIONS: pregabalin (LYRICA) 75 mg capsule Take 1 capsule by mouth once daily for 180 days. meloxicam (MOBIC) 15 mg tablet Take [...] Never Smokeless tobacco: Never Vaping Use Vaping status: Never Used Substance Use Topics Alcohol use: Yes Comment: 1 drink every 2 weeks Drug use: No PHYSICAL EXAMINATION BP 135/75 Pulse 69 Resp 18 Wt 64.5 kg (142 lb 3.2 oz) SpO2 95% BMI 25.19 kg/m? GENERAL EXAM: General appearance: NAD, pleasant. HEENT: NC/AT, nasal congestion absent, no oral lesions, membranes moist. NECK: No masses, supple. Lungs: Breathing comfortably Extr: Moves all extremities without difficulty Skin: Cool to touch. No rash. NEUROLOGICAL EXAM: General: Awake, alert, oriented x3 (person,place,time), speech fluent, no dysarthria; comprehension, naming, repetition intact. Short and residential memory intact. CN: PERRL, EOMI and without nystagmus, VFF to confrontation, facial sensation and strength are normal and symmetric, hearing is intact to finger rub bilaterally, palate and tongue movements are intact and symmetric. SCM and trapezius strength normal. Motor: Normal tone, bulk and strength (5/5) bilaterally (throughout extremities x4). Reflexes: 2/4 and symmetric, plantar stimulation is flexor. Coordination: FNF intact. No tremors. Sensation: No evidence of neglect. Gait: Narrow based and stable with normal stride and arm swing. Assessment and Plan: ASSESSMENT/PLAN: 1. Vestibular migraine - ICD9: 346.80, ICD10: G43.809 (primary diagnosis) 2. Dizziness - ICD9: 780.4, ICD10: R42 3. Cervicalgia - ICD9: 723.1, ICD10: M54.2 4. Nonintractable episodic headache, unspecified headache type - ICD9: 784.0, ICD10: R51.9 Patient with some worsening of her dizziness and headache over the last month or so, happening a few times a week. Dizziness lasting for few minutes at a time but then the headache can last upwards of a few hours. Triggered by bright lights and sometimes walking outside. Describes dizziness as a sensation of movement, no room spinning or lightheadedness. Symptoms are consistent with vestibular migraines as more than half of the episodes of dizziness are accompanied with a headache as well as blurred vision and nausea. Is currently on Lyrica 75 mg, notes it was helpful at first. Discussed increasing this to twice daily patient is amenable, discussed common side effects and patient agrees and understands. Notes that she was on it twice daily before for arthritis pain and notes she tolerated this increase well. No new symptoms thatwould warrant additional workup at this time. Encouraged conservative therapy as well. 5. History of cerebellar stroke - ICD9: V12.54, ICD10: Z86.73 6. History of stroke - ICD9: V12.54, ICD10: Z86.73 No new neurologic symptoms that would warrant additional workup at this time. Patient compliant with aspirin and cholesterol management, following with primary care for risk factor management. Patient agreeable to treatment plan of care at this time, questions were answered. Patient to follow-up in 4 to 5 months or sooner should any symptoms change or worsen. Kasey Hirsch PA-C I spent a total of 30 minutes on the date of the service which included preparing to see the patient, [id number] patient care, completing clinical documentation, obtaining and/or reviewing separately obtained history, performing a medically appropriate examination, counseling and educating the patient/family/caregiver, and ordering medications, tests, or procedures. This document has been created with the use of voice recognition technology. It may contain inaccuracies: (e.g. misspellings, inaccurate syntax or word sense) that have escaped review. 06/21/2024 PROMIS [facility] Physical Health Summary Physical health: Very good Everyday physical activity, ability: Mostly Fatigue: Mild Pain level: 4 General health: Very good Social activities/roles, ability: Very good Physical Health T-Score 47.7 (Good) Physical Health Percentile 41 PROMIS [facility] Mental Health Summary Quality of life: Very good Mental health (mood,thinking): Very good Social satisfaction: Very good Emotional problems (anxious,depressed): Rarely Mental Health T-Score 53.3 (Very Good) Mental Health Percentile 63 PROMIS Physical Function T-Score 47(Within Normal Limits) PROMIS Physical Function Percentile 38 PROMIS Pain Interference T-Score 53(Within Normal Limits) PROMIS Pain Interference Percentile 38 Percentiles provide an indication of how a patient's score ranks in relation to the [place] general population. > 31st percentile is within normal limits or better *< 31st percentile is at least ? SD worse than population, which may be clinically relevant < 16th percentile is at least 1 SD worse than population and warrants attention ALLERGIES DATE TYPE / CODE NAME / CODE REACTION SEVERITY SOURCE Drug Class/[id number](SNO MED CT) NO KNOWN ALLERGIES [facility] ENCOUNTERS ADMIT/DISCHARGE ACCOUNT NUMBER ADMITTING ENCOUNTER CLASS LOC ATION SOURCE 05/30/2025/ 5 [id number] [facility] 11/25/2024/ 5 [id number] [facility] 06/22/2024/ 4 [id number] [facility] PAYERS ENCOUNTER GUARANTOR PAYER SUBSCRIBER SOURCE 05/30/2025 Primary Insurance:AET MEDICARE PPOPolicy Number: [id number] Date:[id number] Name:Isha MCDOWELL: [id number] [place] [address] [facility] 11/25/2024 Primary Insurance:AET[employer] MEDICARE PPOPolicy Number: [id number] Date:[id number] Name:Isha MCDOWELL: [id number] [place] [address] [facility] 06/22/2024 Primary Insurance:AETNA MEDICARE PPOPolicy Number: [id number] Date:[id number] Name:Isha MCDOWELL: [id number] [place] [address] [facility]
[2025-06-19 12:19] LABS: Hematocrit 39.7 % (37-47); Hemoglobin 12.7 g/dL (12.0-15.0); Immature Granulocytes Count 0.010 X10^3/uL (0.0-0.0); Mean Corp Hgb Conc 32.0 g/dL (32-36); Mean Corpuscular Volume 82.7 fL (81-99); Mean Platelet Vol. 12.0 fl (6.2-12.0); NRBC Flagged by Analyzer 0 % (0-5); Platelet Count 285 K/mm3 (150-450); RBC Distribution Width CV 15.2 % (11.6-14.6); RBC Distribution Width SD 46.2 fl (35.1-43.9); Red Blood Count 4.80 M/mm3 (4.2-5.4); White Blood Count 6.0 K/mm3 (4.4-11.0)
[2025-06-19 13:23] LABS: AST(SGOT) 20 U/L (<=31); Alanine Aminotransfer ALT/SGPT 13 U/L (<=34); Albumin, Serum 4.2 g/dL (3.4-4.8); Alkaline Phosphatase 73 U/L (35-104); Anion Gap 10 (5-15); BUN 20 mg/dL (4-19); BUN/Creat Ratio 24.2 RATIO (10-20); Calcium,Total 9.6 mg/dL (7.6-11.0); Carbon Dioxide 23.6 mmol/L (21.0-32.0); Chloride 107 mmol/L (98-108); Cholesterol 149 mg/dL (<=200); Globulin 2.4 g/dL (2.2-4.2); Glucose 91 mg/dL (70-99); Low Density Lipoprotein Calc. 77 mg/dL; Potassium 4.6 mmol/L (3.3-5.1); Triglycerides 89 mg/dL; Very Low Density Lipoprotein 18 mg/dL (5-40); cholesterol:hdl ratio screen 2.73
== END | disposition home or self-care (01) ==
LOC: MTLAB 09:38
PROVIDERS: PCP Internal Medicine; Referring Provider Internal Medicine; Visit Provider Internal Medicine
DX: R73.03 Prediabetes (principal); E78.2 Mixed hyperlipidemia; G43.909 Migraine, unspecified, not intractable, without status migrainosus
CPT/HCPCS: 36415; 80053; 80061; 83036; 85025